=== PATIENT | female | born 1960 | race Caucasian/White ===

== ENCOUNTER 2023-11-30 11:12 | Outpatient (REF) | payer SELFPAY ==
[2023-11-30 13:49] LABS: Estimated Average Glucose 232 mg/dL; Hemoglobin A1c % 9.7 % (<6.0); Total Hemoglobin (HGBA1C) 4426.4618 umol/L
[2023-11-30 14:09] LABS: TSH reflex Free T4 6.35 uIU/mL (0.32-4.0)
[2023-11-30 15:15] LABS: Free T4 (Free Thyroxine) 0.77 ng/dL (0.71-1.85)
== END 2023-11-30 11:13 | disposition home or self-care (01) ==
LOC: HO.HHCL 11:12
PROVIDERS: Visit Provider Family Medicine
DX: E11.65 Type 2 diabetes mellitus with hyperglycemia (principal); E03.9 Hypothyroidism, unspecified
CPT/HCPCS: 36415; 83036; 84439; 84443

== ENCOUNTER 2024-04-21 09:06 | Outpatient (REF) | payer MEDICAID, SELFPAY ==
--- OUTSIDE RECORDS SUMMARY | 2024-04-21 09:47 | XMS_ITS | Encounter Summary ---
Author Organization [employer] Address [address] [place] [address] [place] [address] Care Team Providers Care Vp Scientific Affairs Name Role Phone Carina Nolasco MD Primary Care Provider + Reason for Visit * Reason Comments Med Refill Encounter Details Date Type Department Care Team (Late st Contact Info) Description 09/17/2023 Refill [facility] OB-Digital Marketing Analyst [address] [place] [phone] Aline Dash MD Social History Tobacco Use Types Packs/Day Years Used Date Smoking Tobacco: Never Assessed Comments Unknown Sex and Gender Information Value Date Recorded Sex Assigned at Female 08/09/2023 8:02 AM EDT Legal Sex Female 6:55 PM EDT Gender Identity Female 05/21/2023 6:55 PM EDT Sexual Orientation Straight 05/21/2023 6: 55 PM EDT documented as of this encounter Miscellaneous Notes * Telephone Encounter - Juancarlos Darby - 09/17/2023 12:18 AM EDT Approving, but needs appt for additional refills. documented in this encounter Plan of Treatment Upcoming Encounters Date Type Department Care Team (Late st Contact Info) Description 07/07/2024 11:15 AM EDT Office Visit [facility] MEDICINE [address] [place] [address] Carina Nolasco MD [address] [place], [place] [phone] documented as of this encounter Visit Diagnoses Not on filedocumented in this encounter Care Teams Vp Scientific Affairs Relationship Specialty Start Date End Date Carina Nolasco MD [address] [place] [phone] PCP - General Internal Medicine 04/18/24 documented as of this encounter
--- OUTSIDE RECORDS SUMMARY | 2024-04-21 09:47 | XMS_ITS | Encounter Summary ---
Author Organization [employer] Address [address] [place] [address] Care Team Providers Care Nuclear Radiologist Name Role Phone Carina Nolasco MD Primary Care Provider + Reason for Visit * Reason Comments Med Refill Encounter Details Date Type Department Care Team (Late st Contact Info) Description 09/17/[address] [phone] Myah Bermudez PA-C [address] [place] [phone] Social History Tobacco Use Types Packs/Day Years [...] Telephone Encounter - Juancarlos Darby - 09/17/2023 12:19 AM EDT Approving, but needs appt for additional refills. documented in this encounter Plan of Treatment Upcoming Encounters Date Type Department Care Team (Late st Contact Info) Description 07/07/2024 11:15 AM EDT Office Visit [facility] MEDICINE [address] [place], [place] [phone] Carina Nolasco MD [address] [place] [address] documented as of this encounter Visit Diagnoses Not on filedocumented in this encounter Care Teams Nuclear Radiologist Relationship Specialty Start Date End Date Carina Nolasco MD [address] [place] [address] PCP - General Internal Medicine 04/18/24 documented as of this encounter
--- OUTSIDE RECORDS SUMMARY | 2024-04-21 09:47 | XMS_ITS | Encounter Summary ---
Author Organization [employer] Address [address] [place] [address] [place] [address] Care Team Providers Care Beauty Specialist Name Role Phone Carina Nolasco MD Primary Care Provider + Reason for Visit * Reason Comments Med Refill Encounter Details Date Type Department Care Team (Late st Contact Info) Description 08/18/[address] [facility] OB-Farmworker Dairy [address] [place] [phone] Tanvi Grant FNP [address] [place] [phone] Social History Tobacco Use Types Packs/Day Years Used Date Smoking Tobacco: Never Assessed Comments Unknown Sex and Gender Information Value Date Recorded Sex Assigned at Female 08/09/2023 8:02 AM EDT Legal Sex Female 6:55 PM EDT Gender Identity Female 05/21/2023 6:55 PM EDT Sexual Orientation Straight 05/21/2023 6: 55 PM EDT documented as of this encounter Miscellaneous Notes * Telephone Encounter - Pamela Glass NP - 08/19/2023 9:49 AM EDT Approving, but needs appt for additional refills. documented in this encounter Plan of Treatment Upcoming Encounters Date Type Department Care Team (Late st Contact Info) Description 07/07/2024 11:15 AM EDT Office Visit [facility] MEDICINE [address] [place], [place] [phone] Carina Nolasco MD [address] [place] [address] documented as of this encounter Visit Diagnoses Not on filedocumented in this encounter Care Teams Beauty Specialist Relationship Specialty Start Date End Date Carina Nolasco MD [address] [place] [address] PCP - General Internal Medicine 04/18/24 documented as of this encounter
--- OUTSIDE RECORDS SUMMARY | 2024-04-21 09:47 | XMS_ITS | Encounter Summary ---
Author Organization [employer] Address [address] [place] [address] [place] [address] Care Team Providers Care Barrel Washer Machine Name Role Phone Carina Nolasco MD Primary Care Provider + Reason for Visit * Reason Comments Med Refill Encounter Details Date Type Department Care Team (Late st Contact Info) Description 10/28/[address] [phone] Yessenia Dumont MD [address] [place] [phone] Social History Tobacco Use Types Packs/Day Years [...] * Telephone Encounter - Juancarlos Darby - 10/28/2023 11:50 PM EDT Approving, but needs appt for additional refills. documented in this encounter Plan of Treatment Upcoming Encounters Date Type Department Care Team (Late st Contact Info) Description 07/07/2024 11:15 AM EDT Office Visit [facility] MEDICINE [address] [place] [address] Carina Nolasco MD [address] [place] [address] documented as of this encounter Visit Diagnoses Not on filedocumented in this encounter Care Teams Barrel Washer Machine Relationship Specialty Start Date End Date Carina Nolasco MD [address] [place] [phone] PCP - General Internal Medicine 04/18/24 documented as of this encounter
--- OUTSIDE RECORDS SUMMARY | 2024-04-21 09:47 | XMS_ITS | Encounter Summary ---
Author Organization [employer] Address [address] [place] [address] 7t [place] [address] Care Team Providers Care Dumb Waiter Operator Name Role Phone Carina Nolasco MD Primary Care Provider + Encounter Details Date Type Department Care Team (Latest Contact Info) Description 04/18/2024 Travel Social History Tobacco Use Types Packs/Day Years Used Date Smoking Tobacco: Never Smokeless Tobacco: Never Comments Unknown Sex and Gender Information Value Date Recorded Sex Assigned at Female 08/09/2023 8:02 AM EDT Legal Sex Female 6:55 PM EDT Gender Identity Female 05/21/2023 6:55 PM EDT Sexual Orientation Straight 05/21/2023 6: 55 PM EDT documented as of this encounter Plan of Treatment Upcoming Encounters Date Type Department Care Team (Late st Contact Info) Description 07/07/2024 11:15 AM EDT Office Visit [facility] MEDICINE [address] [place] [address] Carina Nolasco MD [address] [place] [address] documented as of this encounter Visit Diagnoses Not on filedocumented in this encounter Care Teams Dumb Waiter Operator Relationship Specialty Start Date End Date Carina Nolasco MD [address] [place], [place] [phone] PCP - General Internal Medicine 04/18/24 documented as of this encounter
--- OUTSIDE RECORDS SUMMARY | 2024-04-21 09:47 | XMS_ITS | Encounter Summary ---
Author Organization [employer] Address [address] [place] [address] 7 [place] [address] Care Team Providers Care Branch Associate Name Role Phone Carina Nolasco MD Primary Care Provider + Reason for Visit * Reason Comments Med Refill Encounter Details Date Type Department Care Team (Late st Contact Info) Description 09/04/2023 Refill [facility] OB-Sales Representative Consultant [address] [place] [phone] Aline Dash MD Type 2 diabetes mellitus without complications (CMS/HCC) Social History Tobacco Use Types Packs/Day Years [...] * Telephone Encounter - Juancarlos Darby - 09/05/2023 11:24 PM EDT Approving, but needs appt for additional refills. documented in this encounter Plan of Treatment Upcoming Encounters Date Type Department Care Team (Late st Contact Info) Description 07/07/2024 11:15 AM EDT Office Visit [facility] MEDICINE [address] [place] [address] Carina Nolasco MD [address] [place], [place] [phone] documented as of this encounter Visit Diagnoses Diagnosis Type 2 diabetes mellitus without complications (CMS/HCC) documented in this encounter Care Teams Branch Associate Relationship Specialty Start Date End Date Carina Nolasco MD [address] [place] [phone] PCP - General Internal Medicine 04/18/24 documented as of this encounter
--- OUTSIDE RECORDS SUMMARY | 2024-04-21 09:47 | XMS_ITS | Encounter Summary ---
Author Organization [employer] Address [address] [place] [address] 7 [place] [address] Care Team Providers Care Deposit Clerk Name Role Phone Carina Nolasco MD Primary Care Provider + Reason for Visit * Reason Comments Med Refill Encounter Details Date Type Department Care Team (Late st Contact Info) Description 07/19/2023 Refill [facility] OB-Lap Regulator [address] [place] [phone] Aline Dash MD Social History [...] * Telephone Encounter - Juancarlos Darby - 07/20/2023 10:46 PM EDT Approving, but needs appt for additional refills. documented in this encounter Plan of Treatment Upcoming Encounters Date Type Department Care Team (Late st Contact Info) Description 07/07/2024 11:15 AM EDT Office Visit [facility] MEDICINE [address] [place], [place] [phone] Carina Nolasco MD [address] [place], [place] [phone] documented as of this encounter Visit Diagnoses Not on filedocumented in this encounter Care Teams Deposit Clerk Relationship Specialty Start Date End Date Carina Nolasco MD [address] [place] [phone] PCP - General Internal Medicine 04/18/24 documented as of this encounter
--- OUTSIDE RECORDS SUMMARY | 2024-04-21 09:47 | XMS_ITS | Encounter Summary ---
Author Organization [facility] Address [address] [place] [address] 7 [place] [address] Care Team Providers Care Licensed Practical Nurse Instructor Name Role Phone Carina Nolasco MD Primary Care Provider + Reason for Visit * Reason Comments Med Refill Encounter Details Date Type Department Care Team (Late st Contact Info) Description 03/28/2024 Refill [facility] MEDICINE [address] [place] [phone] Becky Porter MD [address] [place] [phone] Vitamin D deficiency Social History Tobacco Use Types Packs/Day Years [...] Description 07/07/2024 11:15 AM EDT Office Visit [facility] MEDICINE [address] [place] [phone] Carina Nolasco MD [address] [place] [address] [phone] documented as of this encounter Visit Diagnoses Diagnosis Vitamin D deficiency documented in this encounter Care Teams Licensed Practical Nurse Instructor Relationship Specialty Start Date End Date Carina Nolasco MD [address] [place] [phone] PCP - General Internal Medicine 04/18/24 documented as of this encounter
--- OUTSIDE RECORDS SUMMARY | 2024-04-21 09:47 | XMS_ITS | Encounter Summary ---
Author Organization [employer] [facility] Address [address] [place] [address] 7t [place] [address] Care Team Providers Care Commercial Real Estate Underwriter Name Role Phone Carina Nolasco MD Primary Care Provider + Reason for Visit * Reason Comments Med Refill Encounter Details Date Type Department Care Team (Late st Contact Info) Description 03/26/2024 Refill [facility] MEDICINE [address] [place] [phone] Becky Porter MD [address] [place] [phone] Essential hypertension Social History Tobacco Use Types Packs/Day Years [...] 07/07/2024 11:15 AM EDT Office Visit [facility] MEDICINE [address] [place] [phone] Carina Nolasco MD [address] [place] [address] [phone] documented as of this encounter Visit Diagnoses Diagnosis Essential hypertension Unspecified essential hypertension documented in this encounter Care Teams Commercial Real Estate Underwriter Relationship Specialty Start Date End Date Carina Nolasco MD [address] [place] [phone] PCP - General Internal Medicine 04/18/24 documented as of this encounter
--- OUTSIDE RECORDS SUMMARY | 2024-04-21 09:47 | XMS_ITS | Encounter Summary ---
Author Organization [employer] Address [address] [place] [address] 7t [place] [address] Care Team Providers Care Range Mounter Name Role Phone Carina Nolasco MD Primary Care Provider + Reason for Referral * Imaging (Routine) - Authorized Specialty Diagnoses / Procedures Referred By Ninoska t Referred To Contact Radiology Diagnoses Essential hypertension Hypertensive urgency Procedures US RENAL DOPPLER Carina Nolasco MD [address] [place] [address] Phone: tel: fax: [address] Phone: tel: fax: Referral ID Status Reason Start Date Expiration Date V isits Requested Visits Authorized [id number] Authorized 04/18/2024 04/18/2025 1 1 * Imaging (Routine) - Authorized Specialty Diagnoses / Procedures Referred By Contkalia t Referred To Contact Radiology Diagnoses Essential hypertension Hypertensive urgency Procedures US RENAL BI Carina Nolasco MD [address] [place] [address] Phone: tel: fax: [address] Phone: tel: fax: Referral ID Status Reason Start Date Expiration Date V isits Requested Visits Authorized [id number] Authorized 04/18/2024 04/18/2025 1 1 Reason for Visit * Reason Comments New patient apointment Encounter Details Date Type Department Care Team (Latest Contact Info) Description 04/18/2024 9:15 AM EDT Office Visit [facility] [address] [place] [address] Carina Nolasco MD [address] [place], [place] [phone] Essential hypertension (Primary Dx); Type 2 diabetes mellitus with hyperglycemia, without long-term current use of insulin ([facility]); Acquired hypothyroidism; Vitamin D deficiency; Sciatica, unspecified laterality; Hyperlipidemia, unspecified hyperlipidemia type; Hypertensive urgency Social History Tobacco Use Types Packs/Day Years Used Date Smoking Tobacco: Never Smokeless Tobacco: Never Tobacco Cessation:Counseling Given: Not Answered Comments Unknown Sex and Gender Information Value Date Recorded Sex Assigned at Female 08/09/2023 8:02 AM EDT Legal Sex Female 6:55 PM EDT Gender Identity Female 05/21/2023 6:55 PM EDT Sexual Orientation Straight 05/21/2023 6: 55 PM EDT documented as of this encounter Last Filed Vital Signs Vital Sign Reading Time Taken Comments Blood Pressure 215/105 04/18/2024 9:45 AM EDT Pulse 92 04/18/2024 9:25 AM EDT Temperature 36.8 ??C (98.2 ??F) 04/18/2024 9:25 AM ED T Respiratory Rate 16 04/18/2024 9:25 AM EDT Oxygen Saturation - - Inhaled Oxygen Concentration - - Weight 70.5 kg (155 lb 8 oz) 04/18/2024 9:25 AM EDT Height 148.6 cm (4' 10.5 ) 04/18/2024 9:25 AM ED T Body Mass Index 31.95 04/18/2024 9:25 AM EDT documented in this encounter Progress Notes * Carina Nolasco MD - 04/18/2024 9:15 AM EDT SUBJECTIVE: Kathryn Pradhan is a 63 y.o. year old female who presents for new patient visit . Denies recent illness, injury, or hospitalization. Patient here to establish care as a new pt. She has multiple medical problems including HTN, DM, HLD, chronic back pain, and vitamin D deficiency. She comes in with her daughter. Last TSH on 11/30/23 was 6.35. She is on levothyroxine 200 mcg. Her last A1c was high as she was off medications and she was restarted on Metformin and Jardiance. She reports her BS at home to be within 300s and 400s, but she is out of medications for approximately a month. She is not checking BP at home but denies any PANDYA, chest pain, headaches, or dizziness. She continues with sciatica and reportedly takes Gabapentin to help with the pain, but does not have Tylenol at home. She reports not being able to get a refill on most of her medications, as the pharmacy apparently told them they need a doctor to prescribe it again, but they did not have a doctor at the time. Afterchecking with the pharmacy, it looks like her last refill was December 2023. She reports her pharmacy to be the [facility] currently. She lives on the fourth floor in an apartment by herself. She has 5 children, with one in [place] and one in [place]. She does not currently work. Last Pap was apparently around a year ago and reportedly showed no abnormalities. Acute Concerns: Social History Social History Narrative Not on file Patient Active Problem List Diagnosis Essential hypertension Type 2 diabetes mellitus, without long-term current use of insulin ([facility]) Pinguecula of both eyes Major depression, chronic Hypothyroidism Hyperlipidemia Health care maintenance Grade I diastolic dysfunction Fatty liver Abnormal mammogram Vitamin D deficiency Hypertensive urgency Sciatica No family history on file. Review of Systems Constitutional: Negative for chills, fatigue and fever. HENT: Negative for congestion, ear pain, nosebleeds, rhinorrhea, sinus pressure, sore throat and trouble swallowing. Eyes: Negative for pain and discharge. Respiratory: Negative for cough, chest tightness and shortness of breath. Cardiovascular: Negative for chest pain, palpitations and leg swelling. Gastrointestinal: Negative for abdominal pain, blood in stool, constipation, diarrhea and nausea. Endocrine: Negative for polydipsia and polyuria. Genitourinary: Negative for dysuria, frequency, genital sores, pelvic pain and vaginal discharge. Musculoskeletal: Positive for back pain. Negative for neck pain. Skin: Negative for rash. Allergic/Immunologic: Negative for environmental allergies. Neurological: Negative for dizziness, seizures, weakness, light-headedness and headaches. Hematological: Negative for adenopathy. Psychiatric/Behavioral: Negative for agitation, behavioral problems, self-injury and suicidal ideas. OBJECTIVE: Vitals: 04/18/24 0925 04/18/24 0945 BP: (!) 232/96 (!) 215/105 BP Location: Right arm Right arm Patient Position: Sitting Sitting BP Cuff Size: Adult Adult Pulse: 92 Resp: 16 Temp: 98.2 ??F (36.8 ??C) TempSrc: Oral Weight: 155 lb 8 oz (70.5 kg) Height: 4' 10.5 (1.486 m) Physical Exam Constitutional: Appearance: Normal appearance. HENT: Right Ear: Tympanic membrane and ear canal normal. Left Ear: Tympanic membrane and ear canal normal. Mouth/Throat: Mouth: Mucous membranes are moist. Pharynx: No oropharyngeal exudate or posterior oropharyngeal erythema. Eyes: Pupils: Pupils are equal, round, and reactive to light. Cardiovascular: Rate and Rhythm: Normal rate and regular rhythm. Heart sounds: No murmur heard. Pulmonary: Breath sounds: Normal breath sounds. No wheezing. Abdominal: General: Bowel sounds are normal. Palpations: Abdomen is soft. Tenderness: There is no abdominal tenderness. Musculoskeletal: General: Normal range of motion. Cervical back: Normal range of motion. No tenderness. Lumbar back: Spasms and tenderness present. Skin: General: Skin is warm. Neurological: General: No focal deficit present. Mental Status: She is alert and oriented to person, place, and time. Psychiatric: Mood and Affect: Mood normal. Encounter Date: 04/18/24 ECG 12 lead Narrative NSR @ 98 bpm, normal axis, no ST/T abn or any ischemic changes. Office Visit on 04/18/2024 Component Date Value Ref Range Status Glucose Blood, POC 04/18/2024 206 (A) 60 - 200 mg/dL Final QC Media Lot # 04/18/2024 [id number] Final Lot# Expiration Date 04/18/2024 82,625 Final Hemoglobin A1C 04/18/2024 10.0 (A) 4.0 - 6.0 % Final QC Media Lot # 04/18/2024 [id number] Final Lot# Expiration Date 04/18/2024 186,922 Final Problem List Items Addressed This Visit Type 2 diabetes mellitus, without long-term current use of insulin ([facility]) Uncontrolled, she is out of medications for approximately a month. Restart Metformin and Jardiance and fu in 4-5 weeks. Relevant Medications metFORMIN XR (Glucophage-XR) 500 MG 24 hr tablet empagliflozin (Jardiance) 25 MG Other Relevant Orders POCT Glucose (Completed) POCT HGB A1C (Completed) Comprehensive Metabolic Panel Essential hypertension - Primary Uncontrolled today, hypertensive urgency. EKG within normal limits, most likely related to pt being out of medications and using vasoconstrictor drops. Restart Amlodipine, Lisinopril, and continue Spironolactone and Metoprolol. Fu in 3-4 weeks with labs. I will order renal US. Relevant Medications metoprolol succinate XL (Toprol-XL) 50 MG 24 hr tablet lisinopril 30 MG tablet spironolactone (Aldactone) 50 MG tablet Other Relevant Orders US RENAL BI US RENAL DOPPLER Hypothyroidism She is out of medications, check baseline TSH and restart Levothyroxine 200 mcg. Recheck TSH in 6 weeks if needed. Relevant Medications levothyroxine (Synthroid, Levoxyl) 200 MCG tablet Other Relevant Orders TSH with Reflex to Free T4 Vitamin D deficiency Check vitamin D and complete vitamin D prescription. Relevant Orders Vitamin D, 25-Hydroxy, Total, Immunoassay Sciatica Advised to take Tylenol with Gabapentin. Fu in 6 weeks and consider pain clinic referral. I gave her information about acupuncture clinic, she declined PT referral at this time. Relevant Medications gabapentin (Neurontin) 300 MG capsule Other Relevant Orders CBC auto differential Hyperlipidemia Continue Atorvastatin. Relevant Medications atorvastatin (Lipitor) 40 MG tablet Hypertensive urgency See above HTN. Relevant Orders US RENAL BI US RENAL DOPPLER Follow Up: Current Outpatient Medications on File Prior to Visit Medication Sig Dispense Refill amLODIPine (Norvasc) 10 MG tablet Take 1 tablet (10 mg) by mouth Once per day. 90 tablet 1 cholecalciferol VITAMIN D (Vitamin D-3) 25 MCG (1000 UT) capsule Take 1 capsule (25 mcg) by mouth Once per day. 90 capsule 1 ferrous gluconate (Fergon) 324 (38 Fe) MG tablet TAKE 1 TABLET BY MOUTH EVERY DAY 90 tablet 0 FreeStyle lancets 1 each by Other route 2 times daily. 100 each 1 FREESTYLE LITE test strip 1 each by Other route 2 times daily. 100 each 2 [DISCONTINUED] atorvastatin (Lipitor) 40 MG tablet Take 1 tablet (40 mg) by mouth Once per day. 90 tablet 1 [DISCONTINUED] empagliflozin (Jardiance) 25 MG Take 1 tablet (25 mg) by mouth in the morning. 90 tablet 1 [DISCONTINUED] gabapentin (Neurontin) 300 MG capsule Take 1 capsule (300 mg) by mouth 2 times daily. 180 capsule 1 [DISCONTINUED] levothyroxine (Synthroid, Levoxyl) 200 MCG tablet Take 1 tablet (200 mcg) by mouth Once per day. 90 tablet 0 [DISCONTINUED] lisinopril 30 MG tablet Take 1 tablet (30 mg) by mouth Once per day. 90 tablet 0 [DISCONTINUED] metFORMIN XR (Glucophage-XR) 500 MG 24 hr tablet Take 2 tablets (1,000 mg) by mouth 2 times daily. 360 tablet 0 [DISCONTINUED] metoprolol succinate XL (Toprol-XL) 50 MG 24 hr tablet Take 1 tablet (50 mg) by mouth Once per day. 90 tablet 1 [DISCONTINUED] spironolactone (Aldactone) 50 MG tablet Take 1 tablet (50 mg) by mouth Once per day.90 tablet 1 No current facility-administered medications on file prior to visit. I, Tess Pearson, am serving as a scribe to document services personally performed by Dr. Carina Nolasco, based on the patient's response to questions by provider and provider's statements to me. documented in this encounter Miscellaneous Notes * Assessment & Plan Note - Tess Pearson - 04/18/2024 1:31 PM EDTAssociated Problem(s): Sciatica Advised to take Tylenol with Gabapentin. Fu in 6 weeks and consider pain clinic referral. I gave her information about acupuncture clinic, she declined PT referral at this time. * Assessment & Plan Note - Tess Pearson - 04/18/2024 1:29 PM EDTAssociated Problem(s): Hyperlipidemia Continue Atorvastatin. * Assessment & Plan Note - Tess Pearson - 04/18/2024 1:28 PM EDTAssociated Problem(s): Vitamin D deficiency Check vitamin D and complete vitamin D prescription. * Assessment & Plan Note - Tess Pearson - 04/18/2024 1:28 PM EDTAssociated Problem(s): Hypothyroidism She is out of medications, check baseline TSH and restart Levothyroxine 200 mcg. Recheck TSH in 6 weeks if needed. * Assessment & Plan Note - Tess Pearson - 04/18/2024 1:23 PM EDTAssociated Problem(s): Essential hypertension Uncontrolled today, hypertensive urgency. EKG within normal limits, most likely related to pt being out of medications and using vasoconstrictor drops. Restart Amlodipine, Lisinopril, and continue Spironolactone and Metoprolol. Fu in 3-4 weeks with labs. I will order renal US. * Assessment & Plan Note - Tess Pearson - 04/18/2024 1:22 PM EDTAssociated Problem(s): Type 2 diabetes mellitus, without long-term current use of insulin ([facility]) Uncontrolled, she is out of medications for approximately a month. Restart Metformin and Jardiance and fu in 4-5 weeks. * Assessment & Plan Note - Tess Pearson - 04/18/2024 1:21 PM EDTAssociated Problem(s): Hypertensive urgency See above HTN. documented in this encounter Plan of Treatment Upcoming Encounters Date Type Department Care Team (Late st Contact Info) Description 07/07/2024 11:15 AM EDT Office Visit [facility] [address] [place] [address] Carina Nolasco MD [address] [place], [place] [phone] Scheduled Orders Name Type Priority Associated Diagnoses Orde r Schedule Comprehensive Metabolic Panel Lab Routine Type 2 diabetes mellitus with hyperglycemia, without long-term current use of insulin (CMS/HCC) Expected: 04/18/2024 (Approximate), Expires: 04/18/2025 TSH with Reflex to Free T4 Lab Routine Acquired hypothyroidism Expected: 04/18/2024 (Approximate), Expires: 04/18/2025 Vitamin D, 25-Hydroxy, Total, Immunoassay Lab Routine Vitamin D deficiency Expected: 04/18/2024 (Approximate), Expires: 04/18/2025 CBC auto differential Lab Routine Sciatica, unspecified laterality Expected: 04/18/2024 (Approximate), Expires: 04/18/2025 US RENAL BI Imaging Routine Essential hypertension Hypertensive urgency Expected: 04/18/2024 (Approximate), Expires: 04/18/2025 US RENAL DOPPLER Imaging Routine Essential hypertension Hypertensive urgency Expected: 04/18/2024 (Approximate), Expires: 04/18/2025 documented as of this encounter Procedures Procedure Name Priority Date/Time Associated Diagnosis Comments ECG 12-LEAD Routine 04/18/2024 2:49 PM EDT Essential hypertension Hypertensive urgency POCT GLYCATED HEMOGLOBIN, TOTAL Routine 04/18/2024 9:36 AM EDT Type 2 diabetes mellitus with hyperglycemia, without long-term current use of insulin (CMS/HCC) POCT GLUCOSE Routine 04/18/2024 9:26 AM EDT Type 2 diabetes mellitus with hyperglycemia, without long-term current use of insulin (CMS/HCC) documented in this encounter Results * ECG 12 lead (04/18/2024 2:49 PM EDT) Narrative Carina Nolasco MD - 04/18/2024 2:49 PM EDT NSR @ 98 bpm, normal axis, no ST/T abn or any ischemic changes. Carina Nolasco MD ECG ORDERABLES Final Re sult * (ABNORMAL) POCT HGB A1C (04/18/2024 9:36 AM EDT) Hemoglobin A1C 10.0(A) 4.0 - 6.0 % QC Media Lot # [id number] Lot# Expiration Date 111,926 Blood 04/18/2024 9:36 AM EDT Carina Nolasco MD POINT OF CARE TEST ENTER /EDIT ORDERABLES Final Result * (ABNORMAL) POCT Glucose (04/18/2024 9:26 AM EDT) Glucose Blood, POC 206(A) 60 - 200 mg/dL QC Media Lot # [id number] Lot# Expiration Date 82,625 Blood Capillary blood specimen / Unknown 04/18/2024 9:26 AM EDT Carina Nolasco MD POINT OF CARE TEST ENTER /EDIT ORDERABLES Final Result documented in this encounter Visit Diagnoses Diagnosis Essential hypertension- Primary Unspecified essential hypertension Type 2 diabetes mellitus with hyperglycemia, without long-term current use of insulin ([facility]) Acquired hypothyroidism Unspecified hypothyroidism Vitamin D deficiency Sciatica, unspecified laterality Hyperlipidemia, unspecified hyperlipidemia type Hypertensive urgency documented in this encounter Care Teams Range Mounter Relationship Specialty Start Date End Date Carina Nolasco MD [address] [place] [phone] PCP - General Internal Medicine 04/18/24 documented as of this encounter
--- OUTSIDE RECORDS SUMMARY | 2024-04-21 09:47 | XMS_ITS | Encounter Summary ---
Author Organization [employer] [facility] Address [address] [place] [address] 7 [place] [address] Care Team Providers Care Claim Approver Name Role Phone Carina Nolasco MD Primary Care Provider + Reason for Visit * Reason Comments Med Change Request Encounter Details Date Type Department Care Team (Late st Contact Info) Description 04/18/2024 Refill [facility] [address] [place] [phone] Carina Nolasco MD [address] [place] [phone] Social History Tobacco Use Types Packs/Day Years [...] Description 07/07/2024 11:15 AM EDT Office Visit [facility] [address] [place] [phone] Carina Nolasco MD [address] [place] [phone] documented as of this encounter Visit Diagnoses Not on filedocumented in this encounter Care Teams Claim Approver Relationship Specialty Start Date End Date Carina Nolasco MD [address] [place] [address] [phone] PCP - General Internal Medicine 04/18/24 documented as of this encounter
--- OUTSIDE RECORDS SUMMARY | 2024-04-21 09:47 | XMS_ITS | Encounter Summary ---
Author Organization [employer] Address [address] [place] [address] 7 [place] [address] Care Team Providers Care Supervisor Brine Name Role Phone Carina Nolasco MD Primary Care Provider + Reason for Visit * Reason Onset Date Comments Durable Medical Equipment 04/20/2024 Encounter Details Date Type Department Care Team (Late st Contact Info) Description 04/20/2024 Telephone [facility] [address] [place], [place] [phone] Carina Nolasco MD [address] [place], [place] [phone] Durable Medical Equipment Social History Tobacco Use Types Packs/Day Years [...] encounter Miscellaneous Notes * Telephone Encounter - Tricia Jennings MA - 04/20/2024 2:58 PM EDT Script for cane generated. Will place on provider's desk for signature. * Telephone Encounter - Tricia Jennings MA - 04/20/2024 2:52 PM EDT ----- Message from Carina Nolasco MD sent at 04/18/2024 1:18 PM EDT ----- Please write a rx for a cane documented in this encounter Plan of Treatment Upcoming Encounters Date Type Department Care Team (Late st Contact Info) Description 07/07/2024 11:15 AM EDT Office Visit [facility] [address] [place] [address] Carina Nolasco MD [address] [place] [phone] documented as of this encounter Visit Diagnoses Not on filedocumented in this encounter Care Teams Supervisor Brine Relationship Specialty Start Date End Date Carina Nolasco MD [address] [place] [phone] PCP - General Internal Medicine 04/18/24 documented as of this encounter
--- OUTSIDE RECORDS SUMMARY | 2024-04-21 09:47 | XMS_ITS | Encounter Summary ---
Author Organization [email or web address] Address [address] [facility] 7t [place] [address] Care Team Providers Care Diesel Engine Mechanic Name Role Phone Unavailable Primary Care Provider Unavailabl e Encounter Details Date Type Department Care Team (Late st Contact Info) Description 04/11/2024 Patient Outreach [facility] [address] [place] [address] [phone] Carina Nolasco MD [address] [place] [address] [phone] Social History Tobacco Use Types Packs/Day Years Used Date Smoking Tobacco: Never Smokeless Tobacco: Never Comments Unknown Sex and Gender Information Value Date Recorded Sex Assigned at Female 08/09/2023 8:02 AM EDT Legal Sex Female 6:55 PM EDT Gender Identity Female 05/21/2023 6:55 PM EDT Sexual Orientation Straight 05/21/2023 6: 55 PM EDT documented as of this encounter Progress Notes * Manasa Batista - 04/11/2024 10:44 AM EST SANTOS Goel. Placed outbound call to patient to complete pre-visit planning. No answer at this time. Patient name and were not confirmed. CC left voicemail requesting return call. Direct contact information provided. documented in this encounter Plan of Treatment Upcoming Encounters Date Type Department Care Team (Late st Contact Info) Description 07/07/2024 11:15 AM EDT Office Visit [facility] [address] [place] [address] [phone] Carina Nolasco MD [address] [place] [address] documented as of this encounter Visit Diagnoses Not on filedocumented in this encounter
--- OUTSIDE RECORDS SUMMARY | 2024-04-21 09:47 | XMS_ITS | Encounter Summary ---
Author Organization [employer] Address [address] [place] [address] [place] [address] Care Team Providers Care Midwife Practitioner Name Role Phone Carina Nolasco MD Primary Care Provider + Reason for Visit * Reason Comments Med Refill Encounter Details Date Type Department Care Team (Late st Contact Info) Description 08/29/2023 Refill [facility] [address] [place] [phone] Tanvi Grant FNP [address] [place] [phone] Social History Tobacco Use Types Packs/Day Years [...] * Telephone Encounter - Juancarlos Darby - 08/31/2023 12:21 AM EDT Approving, but needs appt for additional refills. documented in this encounter Plan of Treatment Upcoming Encounters Date Type Department Care Team (Late st Contact Info) Description 07/07/2024 11:15 AM EDT Office Visit [facility] [address] [place], [place] [phone] Carina Nolasco MD [address] [place] [phone] documented as of this encounter Visit Diagnoses Not on filedocumented in this encounter Care Teams Midwife Practitioner Relationship Specialty Start Date End Date Carina Nolasco MD [address] [place] [phone] PCP - General Internal Medicine 04/18/24 documented as of this encounter
--- OUTSIDE RECORDS SUMMARY | 2024-04-21 09:47 | XMS_ITS | Encounter Summary ---
Author Organization [employer] [facility] Address [address] [place] [address] 7t [place] [address] Care Team Providers Care Layout Artist Name Role Phone Carina Nolasco MD Primary Care Provider + Reason for Visit * Reason Comments Med Refill Encounter Details Date Type Department Care Team (Late st Contact Info) Description 04/08/2024 Refill [facility] [address] [place] [phone] Becky Porter MD [address] [place] [address] [phone] Hyperlipidemia, unspecified hyperlipidemia type; Essential hypertension Social History Tobacco Use Types [...] 11:15 AM EDT Office Visit [facility] [address] [place] [phone] Carina Nolasco MD [address] [place] [address] [phone] documented as of this encounter Visit Diagnoses Diagnosis Hyperlipidemia, unspecified hyperlipidemia type Essential hypertension Unspecified essential hypertension documented in this encounter Care Teams Layout Artist Relationship Specialty Start Date End Date Carina Nolasco MD [address] [place] [phone] PCP - General Internal Medicine 04/18/24 documented as of this encounter
--- OUTSIDE RECORDS SUMMARY | 2024-04-21 09:47 | XMS_ITS | Encounter Summary ---
Author Organization [employer] Address [address] [place] [address] Care Team Providers Care Summer Associate Name Role Phone Carina Nolasco MD Primary Care Provider + Reason for Visit * Reason Comments Med Refill Encounter Details Date Type Department Care Team (Late st Contact Info) Description 02/21/2024 Refill [facility] [address] [place] [address] Tanvi Grant FNP [address] [place] [phone] Acquired hypothyroidism Social History Tobacco Use Types Packs/Day Years [...] Description 07/07/2024 11:15 AM EDT Office Visit [facility] [address] [place] [phone] Carina Nolasco MD [address] [place] [address] [phone] documented as of this encounter Visit Diagnoses Diagnosis Acquired hypothyroidism Unspecified hypothyroidism documented in this encounter Care Teams Summer Associate Relationship Specialty Start Date End Date Carina Nolasco MD [address] [place] [phone] PCP - General Internal Medicine 04/18/24 documented as of this encounter
--- OUTSIDE RECORDS SUMMARY | 2024-04-21 09:48 | XMS_ITS | Clinical Summary ---
Author Organization [employer] Address [address] [place] [address] Care Team Providers Care Bookkeeping Service Sales Agent Name Role Phone Carina Nolasco MD Primary Care Provider + Allergies No known active allergies Medications amLODIPine (Norvasc) 10 MG tabletIndications :Essential hypertension Take 1 tablet (10 mg) by mouth Once per day. 90 tablet 1 024 Active cholecalciferol VITAMIN D (Vitamin D-3) 25 MCG (1000 UT) capsuleIndication s:Vitamin D deficiency Take 1 capsule (25 mcg) by mouth Once per day. 90 capsule 1 024 Active FreeStyle lancetsIndication s:Type 2 diabetes mellitus with hyperglycemia, without long-term current use of insulin ([facility]) 1 each by Other route 2 times daily. 100 each 1 024 Active ferrous gluconate (Fergon) 324 (38 Fe) MG tablet TAKE 1 TABLET BY MOUTH EVERY DAY 90 tablet 024 Active FREESTYLE LITE test stripIndications: Type 2 diabetes mellitus with hyperglycemia, without long-term current use of insulin ([facility]) 1 each by Other route 2 times daily. 100 each 2 025 Active metFORMIN XR (Glucophage-XR) 500 MG 24 hr tabletIndications :Type 2 diabetes mellitus with hyperglycemia, without long-term current use of insulin ([facility]) Take 2 tablets (1,000 mg) by mouth 2 times daily. 360 tablet 3 025 Active gabapentin (Neurontin) 300 MG capsuleIndication s:Sciatica, unspecified laterality Take 1 capsule (300 mg) by mouth 2 times daily. 180 capsule 1 025 Active acetaminophen (Tylenol Extra Strength) 500 MG tablet Take 1 tablet (500 mg) by mouth every 6 (six) hours if needed for mild pain. 120 tablet 025 2024 Active levothyroxine (Synthroid, Levoxyl) 200 MCG tabletIndications :Acquired hypothyroidism Take 1 tablet (200 mcg) by mouth Once per day. 90 tablet 1 025 Active atorvastatin (Lipitor) 40 MG tabletIndications :Hyperlipidemia, unspecified hyperlipidemia type Take 1 tablet (40 mg) by mouth Once per day. 90 tablet 1 025 Active empagliflozin (Jardiance) 25 MGIndications:Typ e 2 diabetes mellitus with hyperglycemia, without long-term current use of insulin ([facility]) Take 1 tablet (25 mg) by mouth in the morning. 90 tablet 1 025 Active metoprolol succinate XL (Toprol-XL) 50 MG 24 hr tabletIndications :Essential hypertension Take 1 tablet (50 mg) by mouth Once per day. 90 tablet 1 025 Active lisinopril 30 MG tabletIndications :Essential hypertension Take 1 tablet (30 mg) by mouth Once per day. 90 tablet 1 025 Active spironolactone (Aldactone) 50 MG tabletIndications :Essential hypertension Take 1 tablet (50 mg) by mouth Once per day. 90 tablet 1 025 Active polyvinyl alcohol (Liquifilm Tears) 1.4 % ophthalmic solution INSTILL 2 DROPS INTO AFFECTED EYE(S) IF NEEDED IN THE MORNING AT NOON,AND AT BEDTIME FOR DRY EYE 15 mL 3 Active metFORMIN XR (Glucophage-XR) 500 MG 24 hr tabletIndications :Type 2 diabetes mellitus with hyperglycemia, without long-term current use of insulin ([facility]) Take 2 tablets (1,000 mg) by mouth 2 times daily. 360 tablet 024 2024 Discontinued(R eorder (will not trigger notification to Pharmacy)) atorvastatin (Lipitor) 40 MG tabletIndications :Hyperlipidemia, unspecified hyperlipidemia type Take 1 tablet (40 mg) by mouth Once per day. 90 tablet 1 024 2024 Discontinued(R eorder (will not trigger notification to Pharmacy)) empagliflozin (Jardiance) 25 MGIndications:Typ e 2 diabetes mellitus with hyperglycemia, without long-term current use of insulin ([facility]) Take 1 tablet (25 mg) by mouth in the morning. 90 tablet 1 024 2024 Discontinued(R eorder (will not trigger notification to Pharmacy)) levothyroxine (Synthroid, Levoxyl) 200 MCG tabletIndications :Acquired hypothyroidism Take 1 tablet (200 mcg) by mouth Once per day. 90 tablet 024 2024 Discontinued(R eorder (will not trigger notification to Pharmacy)) metoprolol succinate XL (Toprol-XL) 50 MG 24 hr tabletIndications :Essential hypertension Take 1 tablet (50 mg) by mouth Once per day. 90 tablet 1 024 2024 Discontinued(R eorder (will not trigger notification to Pharmacy)) lisinopril 30 MG tabletIndications :Essential hypertension Take 1 tablet (30 mg) by mouth Once per day. 90 tablet 024 2024 Discontinued(R eorder (will not trigger notification to Pharmacy)) gabapentin (Neurontin) 300 MG capsuleIndication s:Sciatica, unspecified laterality Take 1 capsule (300 mg) by mouth 2 times daily. 180 capsule 1 024 2024 Discontinued(R eorder (will not trigger notification to Pharmacy)) spironolactone (Aldactone) 50 MG tabletIndications :Essential hypertension Take 1 tablet (50 mg) by mouth Once per day. 90 tablet 1 024 2024 Discontinued(R eorder (will not trigger notification to Pharmacy)) Polyvinyl Alcohol-Povidone 5-6 MG/ML solution Administer 2 drops into affected eye(s) if needed in the morning, at noon, and at bedtime (dry eye). 15 mL 3 025 2024 Discontinued Active Problems Problem Noted Date Diagnosed Date Hypertensive urgency 04/18/2024 Assessment & Plan (04/18/2024 1:21 PM EDT): See above HTN. Sciatica 04/18/2024 Assessment & Plan (04/18/2024 1:31 PM EDT): Advised to take Tylenol with Gabapentin. Fu in 6 weeks and consider pain clinic referral. I gave her information about acupuncture clinic, she declined PT referral at this time. Essential hypertension 11/30/2023 Overview (11/30/2023): Pt presents as new pt. Epic chart reviewed from previous health care clinic. Last Addressed Date: 04/26/2023; Status: Chronic; Per their note, Long history of poor BP control likely related to confusion or nonadherence with medications. Now variably controlled on current regimen, Medication regimen: Lisinopril 30 mg daily Amlodipine 10 mg daily Spironolactone 50 mg daily Metoprolol 50 mg daily Because patient is off of her medications. Will restart the above and have her follow up kevyn Assessment & Plan (04/18/2024 1:23 PM EDT): Uncontrolled today, hypertensive urgency. EKG within normal limits, most likely related to pt being out of medications and using vasoconstrictor drops. Restart Amlodipine, Lisinopril, and continue Spironolactone and Metoprolol. Fu in 3-4 weeks with labs. I will order renal US. Assessment & Plan (11/30/2023 10:30 AM EDT): Chronic; Per their note, Long history of poor BP control likely related to confusion or nonadherence with medications. Now variably controlled on current regimen, Medication regimen: Lisinopril 30 mg daily Amlodipine 10 mg daily Spironolactone 50 mg daily Metoprolol 50 mg daily -referred to [facility] with our [facility] 11/30/23 Because patient is off of her medications. Will restart the above and have her follow up kevyn Type 2 diabetes mellitus, wi thout long-term current use of insulin 11/30/2023 Overview (11/30/2023): Last Addressed Date: 01/26/2023; Status: Chronic; Recent NextGen Note: Dx 2015. Had been diet controlled, on ACEi -> 2020: Started metformin, now 1000 mg bid -09/29 represcribe strips clarifying that testing is twice daily -Following with PCP and has seen chronic disease RN for supervision and teaching - 06/30 A1c 9.0, will increase metformin to 1000mg bid and jardiance to 25mg. add asa 81mg Optho - has been seen once but can't remember with whom. 2021 referred to [facility], never got appt 06/30 re-referred for ophtho Last Addressed Date: 01/26/2023; Status: Chronic; Recent NextGen Note: Dx 2015. Had been diet controlled, on ACEi -> 2020: Started metformin, now 1000 mg bid -09/29 represcribe strips clarifying that testing is twice daily -Following with PCP and has seen chronic disease RN for supervision and teaching - 06/30 A1c 9.0, will increase metformin to 1000mg bid and jardiance to 25mg. add asa 81mg Optho - has been seen once but can't remember with whom. 2021 -> referred to [facility], never got appt 06/30 re-referred for ophtho Assessment & Plan (04/18/2024 1:22 PM EDT): Uncontrolled, she is out of medications for approximately a month. Restart Metformin and Jardiance and fu in 4-5 weeks. Assessment & Plan (11/30/2023 10:28 AM EDT): -restarting metformin to 1000mg bid and jardiance to 25mg daily. 11/30/23 -checking A1C and encouraged to follow-up with PCP. Pinguecula of both eyes 11/30/2023 Overview (11/30/2023): Last Addressed Date: 06/22/2022; Status: Chronic; Recent NextGen Note: overdue for DM ophtho exam and also f/u of pteryguim. referring to ophtho Last Addressed Date: 06/22/2022; Status: Chronic; Recent NextGen Note: overdue for DM ophtho exam and also f/u of pteryguim. referring to ophtho Major depression, chronic 11/30/2023 Overview (11/30/2023): Last Addressed Date: 06/22/2019; Status: Chronic; Recent NextGen Note: Pt persistently denies mood sx, depression, or concerns about this. No thoughts of self harm. Per family she has poor memory and poor ability and motivation to care for self, needs cueing and support to perform self-care. Pt declines Rx or referral, declines therapy or other outside supports. Last Addressed Date: 06/22/2019; Status: Chronic; Recent NextGen Note: Pt persistently denies mood sx, depression, or concerns about this. No thoughts of self harm. Per family she has poor memory and poor ability and motivation to care for self, needs cueing and support to perform self-care. Pt declines Rx or referral, declines therapy or other outside supports. Hypothyroidism 11/30/2023 Overview (11/30/2023): Last Addressed Date: 06/22/2022; Status: Chronic; Recent NextGen Note: Current levothyroxine dose 150 mcg daily No longer symptomatic with palpitations which were related to previous overtreatment of thyroid disorder 06/30 due to check to ensure stable control Last Addressed Date: 06/22/2022; Status: Chronic; Recent NextGen Note: Current levothyroxine dose 150 mcg daily No longer symptomatic with palpitations which were related to previous overtreatment of thyroid disorder 06/30 due to check to ensure stable control Assessment & Plan (04/18/2024 1:28 PM EDT): She is out of medications, check baseline TSH and restart Levothyroxine 200 mcg. Recheck TSH in 6 weeks if needed. Assessment & Plan (11/30/2023 6:34 PM EDT): Lab Results Component Value Date TSH 7.260 (H) 04/26/2023 TSH 7.14 (A) 01/26/2023 -levothryoixine was increased after 04/26/23 to 200mg, will check TSH today Addendum: repeat TSH high, rx resent, advised to take daily before recheck Hyperlipidemia 11/30/2023 Overview (11/30/2023): Lab Results Component Value Date LDL 122 06/22/2022 -continue lifestyle modification -continue Atorvastatin 40 mg daily. Assessment & Plan (04/18/2024 1:29 PM EDT): Continue Atorvastatin. Assessment & Plan (11/30/2023 10:40 AM EDT): Lab Results Component Value Date LDL 122 06/22/2022 -continue lifestyle modification -continue Atorvastatin 40 mg daily. Health care maintenance 11/30/2023 Overview (11/30/2023): Last Addressed Date: 04/14/2021; Status: Chronic; Recent NextGen Note: breast CA screening - see separate prob list item, refer for mammo colon cancer screening - neg FIT 05/2018 -> update 04/29 pap neg/neg 03/28/15 -> due 2020 -> done 04/13/21 though unable to adequitely visualize cervix flu shot - declined 12/07/17, 12/06/18, 03/06/2019, 04/29 COVID vax - decliend 04/29 no dental care (has dentures upper and lower) Last Addressed Date: 04/14/2021; Status: Chronic; Recent NextGen Note: breast CA screening - see separate prob list item, refer for mammo colon cancer screening - neg FIT 05/2018 -> update 04/29 pap neg/neg 03/28/15 -> due 2020 -> done 04/13/21 though unable to adequitely visualize cervix flu shot - declined 12/07/17, 12/06/18, 03/06/201904/29 COVID vax - decliend 04/29 no dental care (has dentures upper and lower) Grade I diastolic dysfunction 11/30/2023 Overview (11/30/2023): Last Addressed Date: 06/27/2018; Status: Chronic; Recent NextGen Note: By ECHO 06/2018 Last Addressed Date: 06/27/2018; Status: Chronic; Recent NextGen Note: By ECHO 06/2018 Fatty liver 11/30/2023 Abnormal mammogram 11/30/2023 Overview (11/30/2023): Last Addressed Date: 04/14/2021; Status: Chronic; Recent NextGen Note: nl mammo but breast u/s with abnormal finding April 2017 (interval growth of L breast mass, now with vascularity), declined core bx on multiple conversations; 12/07/17, pt agreed to plan rpt mammo 2021 Last Addressed Date: 04/14/2021; Status: Chronic; Recent NextGen Note: nl mammo but breast u/s with abnormal finding April 2017 (interval growth of L breast mass, now with vascularity), declined core bx on multiple conversations; 12/07/17, pt agreed to plan rpt mammo 2021 Vitamin D deficiency 11/30/2023 Assessment & Plan (04/18/2024 1:28 PM EDT): Check vitamin D and complete vitamin D prescription. Encounters Date Type Department Care Team Description 04/20/2024 Telephone [facility] [address] [place] [phone] Carina Nolasco MD Durable Medical Equipment 04/18/2024 9:15 AM EDT Office Visit [facility] [address] [place] [phone] Carina Nolasco MD Essential hypertension (Primary Dx); Type 2 diabetes mellitus with hyperglycemia, without long-term current use of insulin ([facility]); Acquired hypothyroidism; Vitamin D deficiency; Sciatica, unspecified laterality; Hyperlipidemia, unspecified hyperlipidemia type; Hypertensive urgency 04/18/2024 Refill [facility] [address] [place] [phone] Carina Nolasco MD 04/18/2024 Travel 04/11/2024 Patient Outreach [facility] [address] [place] [address] Carina Nolasco MD 04/08/2024 Refill [facility] [address] [place] [phone] Becky Porter MD Hyperlipidemia, unspecified hyperlipidemia type; Essential hypertension 03/28/2024 Refill [facility] [address] [place] [phone] Becky Porter MD Vitamin D deficiency 03/26/2024 Refill [facility] [address] [place] [address] Becky Porter MD Essential hypertension 02/21/[address] [phone] Tanvi Grant FNP Medication Question 02/21/2024 Refill [facility] [address] [place] [address] Tanvi Grant FNP Acquired hypothyroidism 01/29/2024 Refill [facility] [address] [place] [address] Tanvi Grant FNP Essential hypertension 01/24/2024 Refill [facility] [address] [place] [address] Tanvi Grant FNP Type 2 diabetes mellitus with hyperglycemia, without long-term current use of insulin ([facility]) from Last 3 Months Social History Tobacco Use Types Packs/Day Years Used Date Smoking Tobacco: Never Smokeless Tobacco: Never Tobacco Cessation:Counseling Given: Not Answered Comments Unknown Sex and Gender Information Value Date Recorded Sex Assigned at Female 08/09/2023 8:02 AM EDT Legal Sex Female 6:55 PM EDT Gender Identity Female 05/21/2023 6:55 PM EDT Sexual Orientation Straight 05/21/2023 6: 55 PM EDT Last Filed Vital Signs Vital Sign Reading Time Taken Comments Blood Pressure 215/105 04/18/2024 9:45 AM EDT Pulse 92 04/18/2024 9:25 AM EDT Temperature 36.8 ??C (98.2 ??F) 04/18/2024 9:25 AM ED T Respiratory Rate 16 04/18/2024 9:25 AM EDT Oxygen Saturation 96% 11/30/2023 10:03 AM EDT Inhaled Oxygen Concentration - - Weight 70.5 kg (155 lb 8 oz) 04/18/2024 9:25 AM EDT Height 148.6 cm (4' 10.5 ) 04/18/2024 9:25 AM ED T Body Mass Index 31.95 04/18/2024 9:25 AM EDT Plan of Treatment Upcoming Encounters Date Type Department Care Team (Late st Contact Info) Description 07/07/2024 11:15 AM EDT Office Visit [facility] [address] [place] [address] Carina Nolasco MD [address] [place] [address] Health Maintenance Due Date Last Done Comments CT Colonography 1958 Colonoscopy 1958 Depression Screening 1958 FIT DNA/Cologuard 1958 FOBT 1958 SDOH Screening 1958 Sigmoidoscopy 1958 Diabetes: Foot Exam 1968 Eye Exam 1968 Alcohol/Substance Use Screening 1970 Hepatitis C Screening 1976 Hepatitis A Vaccines (1 of 2 - Risk 2-dose series) 1977 Pneumococcal Vaccine: 50+ Years (1 of 2 - PCV) 1977 IPV Vaccines (3 of 3 - 4-dose series) 02/28/1998 08/28/1997, 10/22/1975 Zoster Vaccines (1 of 2) 2008 Hepatitis B Vaccines (1 of 3 - Risk 3-dose series) 2018 RSV Patients and Patients Aged 60 years or older (1 - Risk 60-74 years 1-dose series) 2018 Mammogram 05/07/2023 05/06/2021 Lipid Panel 06/23/2023 06/22/2022 COVID-19 Vaccine ( season) 2023 Influenza Vaccine (#1) 2023 03/28/2015 Diabetes: Urine Protein Screening 01/27/2024 01/26/2023 Colorectal Cancer Screening 02/03/2024 FIT 02/03/2024 02/02/2023 Diabetes: Hemoglobin A1C 07/19/2024 025, 11/30/2023, 04/26/2023, Additional history exists DTaP/Tdap/Td Vaccines (3 - Td or Tdap) 03/28/2025 03/28/2015, 10/22/1975 Tobacco Screening 04/18/2025 04/18/2024 Cervical Cancer Screening 04/14/2026 HPV/Cotest 04/14/2026 04/14/2021 Pap Smear 04/14/2026 04/14/2021 HIB Vaccines Aged Out No longer eligi ble based on patient's age to complete this topic HPV Vaccines Aged Out No longer eligi ble based on patient's age to complete this topic Meningococcal Vaccine Aged Out No courtney nadege eligible based on patient's age to complete this topic RSV under 20 months Aged Out No longe r eligible based on patient's age to complete this topic Rotavirus Vaccines Aged Out No longer eligible based on patient's age to complete this topic Procedures Procedure Name Priority Date/Time Associated Diagnosis Comments ECG 12-LEAD Routine 04/18/2024 2:49 PM EDT Essential hypertension Hypertensive urgency POCT GLYCATED HEMOGLOBIN, TOTAL Routine 04/18/2024 9:36 AM EDT Type 2 diabetes mellitus with hyperglycemia, without long-term current use of insulin ([facility]) POCT GLUCOSE Routine 04/18/2024 9:26 AM EDT Type 2 diabetes mellitus with hyperglycemia, without long-term current use of insulin ([facility]) FECAL IMMUNOCHEMICAL TEST Routine 02/02/2023 DIABETES: URINE PROTEIN SCREENING Routine 01/26/2023 LIPID PANEL, STANDARD Routine 06/22/2022 MAMMOGRAPHY Routine 05/06/2021 PAP/HPV Routine 04/14/2021 from Last 3 Months or Most Recently Relevant to Health Maintenance Results * ECG 12 lead (04/18/2024 2:49 PM EDT) Narrative Carina Nolasco MD - 04/18/2024 2:49 PM EDT NSR @ 98 bpm, normal axis, no ST/T abn or any ischemic changes. us Carina Nolasco MD ECG ORDERABLES Final Re sult * (ABNORMAL) POCT HGB A1C (04/18/2024 9:36 AM EDT) Hemoglobin A1C 10.0(A) 4.0 - 6.0 % QC Media Lot # [id number] Lot# Expiration Date 926 Blood 04/18/2024 9:36 AM EDT Carina Nolasco MD POINT OF CARE TEST ENTER /EDIT ORDERABLES Final Result * (ABNORMAL) POCT Glucose (04/18/2024 9:26 AM EDT) Pathologist [facility] Glucose Blood, POC 206(A) 60 - 200 mg/dL QC Media Lot # [id number] Lot# Expiration Date 82,625 Blood Capillary blood specimen / Unknown 04/18/2024 9:26 AM EDT Result [facility] Carina Nolasco MD POINT OF CARE TEST ENTER /EDIT ORDERABLES Final Result * Fecal Immunochemical Test (02/02/2023) Pathologist [facility] Fecal Immunochemical Test Nonreactive Borderline, Nonreactive, Weakly Reactive, Inconclusive Stool Rectal contents / Unknown Result [facility] Historical Provider HEALTH MAINTENANCE Final Result * Diabetes: Urine Protein Screening (01/26/2023) Pathologist [facility] Microalbumin, Urine 25 Urine Historical Provider HEALTH MAINTENANCE Final Result * Lipid Panel, Standard (06/22/2022) Pathologist [facility] LDL Cholesterol 122 mg/dL Blood Venous blood specimen / Unknown Result [facility] Historical Provider LAB BLOOD ORDERABLES Zulma l Result * Mammography (05/06/2021) Mammogram BIRADS 1 Normal, Abnormal, BIRADS 1 , BIRADS 2 Anatomical Region Laterality Modality Other Historical Provider HEALTH MAINTENANCE Final Result * HM PAP/HPV (04/14/2021) Pap Smear 1. NILM 1. NILM HPV Not Detected Undetected, Indeterminat e, Quantitative , Not Detected Historical Provider HEALTH MAINTENANCE Final Result from Last 3 Months or Most Recently Relevant to Health Maintenance Insurance MEDICARE Member Subscriber Plan / Payer (Ef fective 2024-Present) Name:Kathryn Goins Member ID:[id number] Relation to Subscriber:Self Name:Kathryn Goins Subscriber ID:[id number] Payer ID:[facility] Group ID:Not on file Type:Medicare [facility] [address] [phone] [facility] Care Teams Bookkeeping Service Sales Agent Relationship Specialty Start Date End Date Carina Nolasco MD [address] [place] [phone] PCP - General Internal Medicine 04/18/24
--- OUTSIDE RECORDS SUMMARY | 2024-04-21 09:48 | XMS_ITS | Encounter Summary ---
Author Organization [employer] [facility] Address [address] [place] [address] [place] [address] Care Team Providers Care Team Sports Sales Associate Name Role Phone Carina Nolasco MD Primary Care Provider + Reason for Visit * Reason Comments Med Refill Encounter Details Date Type Department Care Team (Late st Contact Info) Description 01/29/2024 Refill [facility] [address] [place] [address] Tanvi Grant FNP [address] [place] [phone] Essential hypertension Social History Tobacco Use Types [...] Visit [facility] [address] [place] [address] Carina Nolasco MD [address] [place] [address] documented as of this encounter Visit Diagnoses Diagnosis Essential hypertension Unspecified essential hypertension documented in this encounter Care Teams Team Sports Sales Associate Relationship Specialty Start Date End Date Carina Nolasco MD [address] [place] [phone] PCP - General Internal Medicine 04/18/24 documented as of this encounter
--- OUTSIDE RECORDS SUMMARY | 2024-04-21 09:48 | XMS_ITS | Encounter Summary ---
Author Organization [employer] Address [address] [place] [address] [address] [place] [address] Care Team Providers Care Principal Secretary Name Role Phone Carina Nolasco MD Primary Care Provider + Reason for Visit * Reason Comments Med Refill Encounter Details Date Type Department Care Team (Late st Contact Info) Description 12/27/2023 Refill [facility] OB-Geropsychologist [address] [place] [phone] Aline Dash MD Social History [...] * Telephone Encounter - Juancarlos Darby - 12/29/2023 12:27 PM EST Approving, but needs appt for additional refills. * Telephone Encounter - Devorah Peters RN - 12/29/2023 8:38 AM EST Requested Prescriptions Pending Prescriptions Disp Refills ferrous gluconate (Fergon) 324 (38 Fe) MG tablet [Pharmacy Med Name: FERROUS GLUCONATE 324 MG TAB] 90 tablet 3 Sig: TAKE 1 TABLET BY MOUTH EVERY DAY Med Refill Request reviewed by Med Refill Principal Secretary, Devorah Peters RN. Last Visit: 04/2023 w PCP 06/2023 w DM Nurse Med Refill is acceptable at this time. [facility] Pharmacy will not send labs for Provider Review *11/30/2023* will Task Scheduling to schedule Next visit RX Pended please review and update quantity and refill as needed Please reach out to Team staff as needed Ty documented in this encounter Plan of Treatment Upcoming Encounters Date Type Department Care Team (Late st Contact Info) Description 07/07/2024 11:15 AM EDT Office Visit [facility] MED[facility]INE [address] [place] [phone] Carina Nolasco MD [address] [place] [phone] documented as of this encounter Visit Diagnoses Not on filedocumented in this encounter Care Teams Principal Secretary Relationship Specialty Start Date End Date Carina Nolasco MD [address] [place] [phone] PCP - General Internal Medicine 04/18/24 documented as of this encounter
--- OUTSIDE RECORDS SUMMARY | 2024-04-21 09:48 | XMS_ITS | Encounter Summary ---
Author Organization [employer] Address [address] 7t [place] [address] Care Team Providers Care Egg Sorter Name Role Phone Carina Nolasco MD Primary Care Provider + Encounter Details Date Type Department Care Team (Late st Contact Info) Description 11/30/2023 Abstract [facility] [address] [place], [place] [phone] Becky Porter MD [address] [place] [address] Hypertension, unspecified type Social History Tobacco Use Types Packs/Day Years [...] Sign Reading Time Taken Comments Blood Pressure 187/100 11/30/2023 9:36 AM EDT Pulse 88 11/30/2023 9:28 AM EDT Temperature 37.1 ??C (98.7 ??F) 11/30/2023 9:28 AM ED T Respiratory Rate - - Oxygen Saturation 96% 11/30/2023 9:28 AM EDT room air Inhaled Oxygen Concentration - - Weight - - Height - - Body Mass Index - - documented in this encounter Plan of Treatment Upcoming Encounters Date Type Department Care Team (Late st Contact Info) Description 07/07/2024 11:15 AM EDT Office Visit [facility] [address] [place] [address] Carina Nolasco MD [address] [place] [address] documented as of this encounter Visit Diagnoses Diagnosis Hypertension, unspecified type documented in this encounter Care Teams Egg Sorter Relationship Specialty Start Date End Date Carina Nolasco MD [address] [place] [address] PCP - General Internal Medicine 04/18/24 documented as of this encounter
--- OUTSIDE RECORDS SUMMARY | 2024-04-21 09:48 | XMS_ITS | Encounter Summary ---
Author Organization [facility] [facility] Address [address] [place] [address] [place] [address] Care Team Providers Care Layout Worker Name Role Phone Carina Nolasco MD Primary Care Provider + Reason for Visit * Reason Comments Med Refill Encounter Details Date Type Department Care Team (Late st Contact Info) Description 01/02/2024 Refill [facility] [address] [place] [address] [phone] Tanvi Grant FNP [address] [place] [phone] Type 2 diabetes mellitus with hyperglycemia, without long-term current use of insulin (CMS/HCC) Social History Tobacco Use Types Packs/Day [...] 07/07/2024 11:15 AM EDT Office Visit [facility] [address] [place] [address] [phone] Carina Nolasco MD [address] [place] [address] [phone] documented as of this encounter Visit Diagnoses Diagnosis Type 2 diabetes mellitus with hyperglycemia, without long-term current use of insulin (CMS/HCC) documented in this encounter Care Teams Layout Worker Relationship Specialty Start Date End Date Carina Nolasco MD [address] [place] [address] PCP - General Internal Medicine 04/18/24 documented as of this encounter
--- OUTSIDE RECORDS SUMMARY | 2024-04-21 09:48 | XMS_ITS | Encounter Summary ---
Author Organization [employer] [facility] Address [address] [place] [address] [place] [address] Care Team Providers Care Animal Rehabilitator Name Role Phone Carina Nolasco MD Primary Care Provider + Reason for Visit * Reason Comments Med Refill Encounter Details Date Type Department Care Team (Late st Contact Info) Description 01/24/[address] [facility] [address] [place] [address] [phone] Tanvi Grant FNP [address] [place] [phone] Type 2 diabetes mellitus with hyperglycemia, [...] Description 07/07/2024 11:15 AM EDT Office Visit [facility] [address] [place] [address] [phone] Carina Nolasco MD [address] [place] [address] [phone] documented as of this encounter Visit Diagnoses Diagnosis Type 2 diabetes mellitus with hyperglycemia, without long-term current use of insulin (CMS/HCC) documented in this encounter Care Teams Animal Rehabilitator Relationship Specialty Start Date End Date Carina Nolasco MD [address] [place] [address] PCP - General Internal Medicine 04/18/24 documented as of this encounter
[2024-04-21 11:23] LABS: MANUAL DIFF FLAG NO
[2024-04-21 11:42] LABS: Basophils Percent Auto 0.3 % (0-2); Eosinophils Absolute Auto 0.1 X10*3/uL (0.0-0.4); Eosinophils Percent Auto 1.3 % (0-4); Hematocrit 40.6 % (37.0-47.0); Hemoglobin 13.9 g/dl (12.0-16.0); Imm Gran Abs Auto 0.02 X10*3/uL (0.00-0.03); Imm Gran Pct Auto 0.3 % (0.0-0.4); Lymphocytes Absolute Auto 2.6 X10*3/uL (1.2-4.9); Lymphocytes Percent Auto 42.1 % (20-40); Mean Corpuscular HGB Conc 34.2 g/dl (31.0-35.0); Mean Corpuscular Hemoglobin 29.1 pg (27.0-33.0); Mean Corpuscular Volume 84.9 fL (80.0-98.0); Mean Platelet Volume 11.3 fL (9.4-12.3); Monocytes Absolute Auto 0.6 X10*3/uL (0.1-1.2); Monocytes Percent Auto 9.3 % (2-11); Neutrophils Absolute Auto 2.8 x10*3/uL (2.0-8.3); Neutrophils Percent Auto 46.7 % (45-73); Platelet Count 207 X10*3/uL (160-400); Red Blood Count 4.78 X10*6/uL (4.20-5.50); Red Cell Distribution Width 12.6 % (11.0-16.0); White Blood Count 6.1 X10*3/uL (4.8-10.8)
[2024-04-21 12:02] LABS: Alanine Aminotransferase 99 U/L (0-31); Alkaline Phosphatase 59 U/L (39-117); Anion Gap 12 (12-20); Aspartate Amino Transferase 62 U/L (5-31); Bilirubin Total 0.5 mg/dL (0.0-1.0); Blood Urea Nitrogen 16 mg/dL (9-16); Calcium 9.6 mg/dL (8.4-10.2); Carbon Dioxide 25 mmol/L (22-29); Chloride 107 mmol/L (96-108); Estimated Glomerular Filt Rate 59; Glucose Random 199 mg/dL (60-115); Potassium 4.3 mmol/L (3.3-5.1); Sodium 140 mmol/L (135-145); Total Protein 7.8 g/dL (6.5-8.0)
[2024-04-21 12:08] LABS: TSH reflex Free T4 1.73 uIU/mL (0.32-4.0); Vitamin D 25-OH Total 34.1 ng/mL (>30)
== END 2024-04-21 09:07 | disposition home or self-care (01) ==
LOC: HO.HHCL 09:06
PROVIDERS: Visit Provider Internal Medicine
DX: E55.9 Vitamin D deficiency, unspecified (principal); E03.9 Hypothyroidism, unspecified; M54.30 Sciatica, unspecified side; E11.65 Type 2 diabetes mellitus with hyperglycemia
CPT/HCPCS: 36415; 80053; 82306; 84443; 85025

== ENCOUNTER 2024-04-28 09:06 | Outpatient (REF) | payer MEDICAID, SELFPAY ==
[2024-04-28 11:32] LABS: Gamma Glutamyl Transpeptidase 58 U/L (7-33)
[2024-04-28 12:06] LABS: HBS Num1 0.16 mIU/mL (0-7.99); HBc Num1 0.07 S/CO (0.00-0.79); HBsAGNum1 0.31 S/CO (0.00-0.99); Hepatitis A Antibody IgM 0.26 Index (0-0.79); Hepatitis B Core Antibody Nonreactive (Nonreactive); Hepatitis B Surface Antigen Negative (Negative); ~HepC Num1 0.16 S/CO (0.00-0.79); ~Hepatitis A Antibody IgM Nonreactive (Nonreactive); ~Hepatitis B Surface Antibody NONREACTIVE (Nonreactive); ~Hepatitis C Antibody Nonreactive (Nonreactive)
[2024-04-28 12:09] LABS: Syphilis Screen Reactive (Nonreactive)
[2024-05-02 14:37] LABS: RPR Quantitative Reactive 1:2 (Nonreactive); T.Pallidum Particle Agg Test Reactive (Nonreactive)
[2024-05-03 05:38] LABS: Smooth Muscle Antibody <20 U (<20)
== END 2024-04-28 09:07 | disposition home or self-care (01) ==
LOC: HO.HHCL 09:06
PROVIDERS: Visit Provider Internal Medicine
DX: K76.0 Fatty (change of) liver, not elsewhere classified (principal); R79.89 Other specified abnormal findings of blood chemistry; Z72.89 Other problems related to lifestyle
CPT/HCPCS: 36415; 82977; 86015; 86592; 86704; 86706; 86709; 86780; 86803; 87340

== ENCOUNTER 2024-05-26 07:35 | Outpatient (REF) | payer MEDICAID, SELFPAY ==
--- NOTE | ~2024-05-26 | US_ITS ---
EXAMINATION: ULTRASOUND RENAL DOPPLER, BILATERALLY. ULTRASOUND RENAL BILATERALLY. CLINICAL INFORMATION: Uncontrolled hypertension. COMPARISON: No priors. TECHNIQUE: Spectral Doppler analysis: Right Kidney: -Peak systolic velocity in the proximal right renal artery = 165 cm/s. Normal waveforms. -Peak systolic velocity in the mid right renal artery = 161 cm/s. Normal waveforms. -Peak systolic velocity in the distal right renal artery = 122 cm/s. Normal waveforms. -Patent right renal vein. -Upper pole interlobar artery resistive index of 0.64. -Midpole interlobar artery resistive index of 0.72. -Lower pole interlobar artery resistive index of 0.65. RAR right = 2.29 Left Kidney: -Peak systolic velocity in the proximal left renal artery = 92 cm/s. Normal waveforms. -Peak systolic velocity in the mid left renal artery = 90 cm/s. Normal waveforms. -Peak systolic velocity in the distal left renal artery = 153 cm/s. Normal waveforms. -Patent left renal vein. -Upper pole interlobar artery resistive index of 0.6. -Mid pole interlobar artery resistive index of 0.72. -lower pole interlobar artery resistive index of 0.75. RAR left = 2.13 Aorta: -Peak systolic velocity = 72 cm/s. RIGHT KIDNEY: 9 x 5 x 5 cm. Volume: 122 cc. Normal echotexture. Normal renal cortical thickness. Mild prominence of the pelvicalyceal system. 1.1 cm anechoic lesion at the corticomedullary junction upper pole. Punctate 3 mm hyperechoic lesion in the mid portion. 4 mm hyperechoic structure in the upper pole. LEFT KIDNEY: 9 x 5 x 6 cm. Volume: 127 cc. Normal echotexture. Normal renal cortical thickness. Multifocal, different sizes less than 1.8 cm anechoic lesions. Punctate, 6 mm hyperechoic structures. Mild prominence of the pelvicalyceal system. US/US renal BI IMPRESSION: Bilateral nephrolithiasis. Mild hydronephrosis, bilaterally. Bosniak type I/II cysts, bilaterally. No hemodynamically significant stenosis by ultrasound criteria at either main renal artery. Electronically signed by: Archie Hurtado MD 05/26/2024 09:31 AM EDT
--- NOTE | ~2024-05-26 | US_ITS ---
EXAMINATION: ULTRASOUND RENAL DOPPLER, BILATERALLY. ULTRASOUND RENAL BILATERALLY. CLINICAL INFORMATION: Uncontrolled hypertension. COMPARISON: No priors. TECHNIQUE: Spectral Doppler analysis: Right Kidney: -Peak systolic velocity in the proximal right renal artery = 165 cm/s. Normal waveforms. -Peak systolic velocity in the mid right renal artery = 161 cm/s. Normal waveforms. -Peak systolic velocity in the distal right renal artery = 122 cm/s. Normal waveforms. -Patent right renal vein. -Upper pole interlobar artery resistive index of 0.64. -Midpole interlobar artery resistive index of 0.72. -Lower pole interlobar artery resistive index of 0.65. RAR right = 2.29 Left Kidney: -Peak systolic velocity in the proximal left renal artery = 92 cm/s. Normal waveforms. -Peak systolic velocity in the mid left renal artery = 90 cm/s. Normal waveforms. -Peak systolic velocity in the distal left renal artery = 153 cm/s. Normal waveforms. -Patent left renal vein. -Upper pole interlobar artery resistive index of 0.6. -Mid pole interlobar artery resistive index of 0.72. -lower pole interlobar artery resistive index of 0.75. RAR left = 2.13 Aorta: -Peak systolic velocity = 72 cm/s. RIGHT KIDNEY: 9 x 5 x 5 cm. Volume: 122 cc. Normal echotexture. Normal renal cortical thickness. Mild prominence of the pelvicalyceal system. 1.1 cm anechoic lesion at the corticomedullary junction upper pole. Punctate 3 mm hyperechoic lesion in the mid portion. 4 mm hyperechoic structure in the upper pole. LEFT KIDNEY: 9 x 5 x 6 cm. Volume: 127 cc. Normal echotexture. Normal renal cortical thickness. Multifocal, different sizes less than 1.8 cm anechoic lesions. Punctate, 6 mm hyperechoic structures. Mild prominence of the pelvicalyceal system. US/US renal doppler IMPRESSION: Bilateral nephrolithiasis. Mild hydronephrosis, bilaterally. Bosniak type I/II cysts, bilaterally. No hemodynamically significant stenosis by ultrasound criteria at either main renal artery. Electronically signed by: Archie Hurtado MD 05/26/2024 09:31 AM EDT
--- OUTSIDE RECORDS SUMMARY | 2024-05-26 07:37 | XMS_ITS | Encounter Summary ---
Author Organization [employer] Address [address] [place] [address] [place] [address] Care Team Providers Care Manager Of Corporate Name Role Phone Carina Nolasco MD Primary Care Provider + Reason for Visit * Reason Comments Med Refill Encounter Details Date Type Department Care Team (Late st Contact Info) Description 08/18/2023 Refill [facility] OB-Machine Set Up Technician [address] [place] [phone] Tanvi Grant FNP [address] [place] [phone] Social History Tobacco Use Types Packs/Day Years [...] Description 07/07/2024 11:15 AM EDT Office Visit [facility] [address] [place], [place] [phone] Carina Nolasco MD [address] [place] [address] documented as of this encounter Visit Diagnoses Not on filedocumented in this encounter Care Teams Manager Of Corporate Relationship Specialty Start Date End Date Carina Nolasco MD [address] [place] [address] PCP - General Internal Medicine 04/18/24 documented as of this encounter
--- OUTSIDE RECORDS SUMMARY | 2024-05-26 07:37 | XMS_ITS | Encounter Summary ---
Author Organization [employer] Address [address] [place] [address] Care Team Providers Care Emergency Room Clinician Name Role Phone Carina Nolasco MD Primary Care Provider + Reason for Visit * Reason Comments Med Refill Encounter Details Date Type Department Care Team (Late st Contact Info) Description 09/17/[address] [phone] Myah Bermudez PA-C [address] [place] [phone] Social History Tobacco Use Types Packs/Day Years [...] Description 07/07/2024 11:15 AM EDT Office Visit [facility] [address] [place], [place] [phone] Carina Nolasco MD [address] [place] [address] documented as of this encounter Visit Diagnoses Not on filedocumented in this encounter Care Teams Emergency Room Clinician Relationship Specialty Start Date End Date Carina Nolasco MD [address] [place] [address] PCP - General Internal Medicine 04/18/24 documented as of this encounter
--- OUTSIDE RECORDS SUMMARY | 2024-05-26 07:37 | XMS_ITS | Encounter Summary ---
Author Organization [employer] Address [address] [place] [address] [place] [address] Care Team Providers Care Core Winding Operator Name Role Phone Carina Nolasco MD Primary Care Provider + Reason for Visit * Reason Comments Med Refill Encounter Details Date Type Department Care Team (Late st Contact Info) Description 09/17/2023 Refill [facility] OB-Logging Operations Inspector [address] [place] [phone] Aline Dash MD Social History [...] 07/07/2024 11:15 AM EDT Office Visit [facility] [address] [place] [address] Carina Nolasco MD 230 [place], [place] [phone] documented as of this encounter Visit Diagnoses Not on filedocumented in this encounter Care Teams Core Winding Operator Relationship Specialty Start Date End Date Carina Nolasco MD [address] [place] [phone] PCP - General Internal Medicine 04/18/24 documented as of this encounter
--- OUTSIDE RECORDS SUMMARY | 2024-05-26 07:37 | XMS_ITS | Encounter Summary ---
Author Organization [employer] Address [address] [place] [address] [place] [address] Care Team Providers Care Stripper Cutter Machine Name Role Phone Carina Nolasco MD Primary Care Provider + Reason for Visit * Reason Comments Med Refill Encounter Details Date Type Department Care Team (Late st Contact Info) Description 10/28/[address] [phone] Yessenia Dumont MD [address] [place] [phone] Social History Tobacco Use Types Packs/Day Years [...] Visit [facility] [address] [place] [address] Carina Nolasco MD [address] [place] [address] documented as of this encounter Visit Diagnoses Not on filedocumented in this encounter Care Teams Stripper Cutter Machine Relationship Specialty Start Date End Date Carina Nolasco MD [address] [place] [phone] PCP - General Internal Medicine 04/18/24 documented as of this encounter
--- OUTSIDE RECORDS SUMMARY | 2024-05-26 07:37 | XMS_ITS | Encounter Summary ---
Author Organization [employer] Address [address] [place] [address] [place] [address] Care Team Providers Care Director Of Social Services Name Role Phone Carina Nolasco MD Primary Care Provider + Reason for Visit * Reason Comments Med Refill Encounter Details Date Type Department Care Team (Late st Contact Info) Description 07/19/2023 Refill [facility] OB-Physician Specialist [address] [place] [phone] Aline Dash MD Social History [...] Description 07/07/2024 11:15 AM EDT Office Visit [facility] [address] [place], [place] [phone] Carina Nolasco MD [address] [place], [place] [phone] documented as of this encounter Visit Diagnoses Not on filedocumented in this encounter Care Teams Director Of Social Services Relationship Specialty Start Date End Date Carina Nolasco MD [address] [place] [phone] PCP - General Internal Medicine 04/18/24 documented as of this encounter
--- OUTSIDE RECORDS SUMMARY | 2024-05-26 07:37 | XMS_ITS | Encounter Summary ---
Author Organization [employer] Address [address] [place] [address] 7 [place] [address] Care Team Providers Care Pr Intern Name Role Phone Carina Nolasco MD Primary Care Provider + Reason for Visit * Reason Comments Med Refill Encounter Details Date Type Department Care Team (Late st Contact Info) Description 09/04/2023 Refill [facility] OB-Collection Analyst [address] [place] [phone] Aline Dash MD Type 2 [...] Description 07/07/2024 11:15 AM EDT Office Visit [facility] [address] [place] [address] Carina Nolasco MD [address] [place], [place] [phone] documented as of this encounter Visit Diagnoses Diagnosis Type 2 diabetes mellitus without complications (CMS/HCC) documented in this encounter Care Teams Pr Intern Relationship Specialty Start Date End Date Carina Nolasco MD [address] [place] [phone] PCP - General Internal Medicine 04/18/24 documented as of this encounter
--- OUTSIDE RECORDS SUMMARY | 2024-05-26 07:38 | XMS_ITS | Clinical Summary ---
Author Organization [employer] Address [address] [facility] 7[address] [place] [address] Care Team Providers Care Chalk Extruding Machine Operator Name Role Phone Carina Nolasco MD Primary Care Provider + Allergies No known active allergies Medications amLODIPine (Norvasc) 10 MG tabletIndications: Essential hypertension Take 1 tablet (10 mg) by mouth Once per day. 90 tablet 1 11/30/19 24 Active FreeStyle lancetsIndications :Type 2 diabetes mellitus with hyperglycemia, without long-term current use of insulin ([facility]) 1 each by Other route 2 times daily. 100 each 1 11/30/19 24 Active ferrous gluconate (Fergon) 324 (38 Fe) MG tablet TAKE 1 TABLET BY MOUTH EVERY DAY 90 tablet 12/29/19 24 Active FREESTYLE LITE test stripIndications:T ype 2 diabetes mellitus with hyperglycemia, without long-term current use of insulin (CMS/[facility]) 1 each by Other route 2 times daily. 100 each 2 02/20/19 25 Active metFORMIN XR (Glucophage-XR) 500 MG 24 hr tabletIndications: Type 2 diabetes mellitus with hyperglycemia, without long-term current use of insulin ([facility]) Take 2 tablets (1,000 mg) by mouth 2 times daily. 360 tablet 3 04/19/19 25 Active gabapentin (Neurontin) 300 MG capsuleIndications :Sciatica, unspecified laterality Take 1 capsule (300 mg) by mouth 2 times daily. 180 capsule 1 04/19/19 25 Active levothyroxine (Synthroid, Levoxyl) 200 MCG tabletIndications: Acquired hypothyroidism Take 1 tablet (200 mcg) by mouth Once per day. 90 tablet 1 04/19/19 25 Active atorvastatin (Lipitor) 40 MG tabletIndications: Hyperlipidemia, unspecified hyperlipidemia type Take 1 tablet (40 mg) by mouth Once per day. 90 tablet 1 04/19/19 25 Active empagliflozin (Jardiance) 25 MGIndications:Type 2 diabetes mellitus with hyperglycemia, without long-term current use of insulin ([facility]) Take 1 tablet (25 mg) by mouth in the morning. 90 tablet 1 04/19/19 25 Active metoprolol succinate XL (Toprol-XL) 50 MG 24 hr tabletIndications: Essential hypertension Take 1 tablet (50 mg) by mouth Once per day. 90 tablet 1 04/19/19 25 Active lisinopril 30 MG tabletIndications: Essential hypertension Take 1 tablet (30 mg) by mouth Once per day. 90 tablet 1 04/19/19 25 Active spironolactone (Aldactone) 50 MG tabletIndications: Essential hypertension Take 1 tablet (50 mg) by mouth Once per day. 90 tablet 1 04/19/19 25 Active polyvinyl alcohol (Liquifilm Tears) 1.4 % ophthalmic solution INSTILL 2 DROPS INTO AFFECTED EYE(S) IF NEEDED IN THE MORNING AT NOON,AND AT BEDTIME FOR DRY EYE 15 mL 3 04/19/19 25 Active D3-1000 25 MCG (1000 UT) capsuleIndications :Vitamin D deficiency TAKE 1 CAPSULE BY MOUTH EVERY DAY 90 capsule 1 05/03/19 25 Active cholecalciferol VITAMIN D (Vitamin D-3) 25 MCG (1000 UT) capsuleIndications :Vitamin D deficiency Take 1 capsule (25 mcg) by mouth Once per day. 90 capsule 1 11/30/19 24 025 Discontinued acetaminophen (Tylenol Extra Strength) 500 MG tablet Take 1 tablet (500 mg) by mouth every 6 (six) hours if needed for mild pain. 120 tablet 04/19/19 25 025 Active Problems Problem Noted Date Diagnosed Date History of syphilis 05/05/2024 Overview (05/05/2024): VANNA MEJÍA reported pos Hx syphilis on 2007, with a titer 1:32. Pt received tx with 3 doses of PCN. Hypertensive urgency 04/18/2024 Assessment & Plan (04/18/2024 [...] can't remember with whom. 2021 referred to [facility], never got appt 06/30 re-referred for ophtho [...] remember with whom. 2021 -> referred to [facility], never got appt 06/30 re-referred for ophtho [...] Encounters Date Type Department Care Team Description 05/10/2024 Telephone [facility] [address] [place] [address] [phone] Carina Nolasco MD Durable Medical Equipment 05/04/2024 Telephone [facility] [address] [place] [address] [phone] Carina Nolasco MD Care Coordination 05/01/2024 Refill [facility] [address] [place] [address] [phone] Becky Porter MD Vitamin D deficiency 04/28/2024 Orders Only [facility] [address] [place] [address] [phone] Carina Nolasco MD 04/26/2024 Telephone [facility] [address] [place] [address] [phone] Carina Nolasco MD Results 04/25/2024 Orders Only [facility] [address] [place] [address] [phone] Carina Nolasco MD Fatty liver (Primary Dx); Abnormal LFTs; Other problems related to lifestyle 04/20/2024 Telephone [facility] [address] [place] [address] [phone] Carina Nolasco MD Durable Medical Equipment 04/18/2024 9:15 AM EDT Office Visit [facility] [address] [place] [address] [phone] Carina Nolasco MD Essential hypertension (Primary Dx); Type 2 diabetes mellitus with hyperglycemia, without long-term current use of insulin ([facility]); Acquired hypothyroidism; Vitamin D deficiency; Sciatica, unspecified laterality; Hyperlipidemia, unspecified hyperlipidemia type; Hypertensive urgency 04/18/2024 Refill [facility] [address] [place] [address] Carina Nolasco MD 04/18/2024 Travel 04/11/2024 Patient Outreach [facility] [address] [place] [address] [phone] Carina Nolasco MD 04/08/2024 Refill [facility] [address] [place] [address] [phone] Becky Porter MD Hyperlipidemia, unspecified hyperlipidemia type; Essential hypertension 03/28/2024 Refill [facility] [address] [place] [address] [phone] Becky Porter MD Vitamin D deficiency 03/26/2024 Refill [facility] [address] [place] [address] Becky Porter MD Essential hypertension from Last 3 Months Social History Tobacco [...] Description 07/07/2024 11:15 AM EDT Office Visit [facility] [address] [place] [address] Carina Nolasco MD [address] [place], [place] [phone] Health Maintenance Due Date Last Done Comments CT Colonography 1958 Colonoscopy 1958 Depression Screening 1958 FIT DNA/Cologuard 1958 FOBT 1958 SDOH Screening 1958 Sigmoidoscopy 1958 Diabetes: Foot Exam 1968 Eye Exam 1968 Alcohol/Substance Use Screening 1970 Hepatitis A Vaccines (1 of 2 - [...] Lipid Panel 06/23/2023 06/22/2022 COVID-19 Vaccine ( - season) 2023 Influenza Vaccine (#1) 2023 03/28/2015 Diabetes: Urine Protein Screening 01/27/2024 01/26/2023 Colorectal Cancer Screening 02/03/2024 FIT 02/03/2024 02/02/2023 Diabetes: Hemoglobin A1C 07/19/2024 025, 11/30/2023, 04/26/2023, Additional history exists DTaP/Tdap/Td Vaccines (3 - Td or Tdap) 03/28/2025 03/28/2015, 10/22/1975 Tobacco Screening 04/18/2025 04/18/2024 Cervical Cancer Screening 04/14/2026 HPV/Cotest 04/14/2026 04/14/2021 Pap Smear 04/14/2026 04/14/2021 Hepatitis C Screening Completed 04/28/2024 HIB Vaccines Aged Out No longer eligi [...] Procedure Name Priority Date/Time Associated Diagnosis Comments CONFIRMATORY SYPHILIS PROFILE Routine 04/28/2024 9:10 AM EDT ACTIN (SMOOTH MUSCLE) ANTIBODY (IGG) Routine 04/28/2024 9:10 AM EDT Fatty liver Abnormal LFTs SYPHILIS SCREEN Routine 04/28/2024 9:10 AM EDT Abnormal LFTs HEPATITIS PANEL, GENERAL Routine 04/28/2024 9:10 AM EDT Abnormal LFTs Other problems related to lifestyle GGT Routine 04/28/2024 9:10 AM EDT Fatty liver Abnormal LFTs CBC WITH AUTO DIFFERENTIAL Routine 04/21/2024 9:10 AM EDT Sciatica, unspecified laterality VITAMIN D,25-OH,TOTAL,IA Routine 04/21/2024 9:10 AM EDT Vitamin D deficiency TSH W/REFLEX TO FT4 Routine 04/21/2024 9 :10 AM EDT Acquired hypothyroidism COMPREHENSIVE METABOLIC PANEL Routine 04/21/2024 9:10 AM EDT Type 2 diabetes mellitus with hyperglycemia, without long-term current use of insulin ([facility]) ECG 12-LEAD Routine 04/18/2024 2:49 PM EDT Essential hypertension Hypertensive urgency POCT GLYCATED HEMOGLOBIN, TOTAL Routine 04/18/2024 9:36 AM EDT Type 2 diabetes mellitus with hyperglycemia, without long-term current use of insulin ([facility]) POCT GLUCOSE Routine 04/18/2024 9:26 AM EDT Type 2 diabetes mellitus with hyperglycemia, without long-term current use of insulin ([facility]) HM FECAL IMMUNOCHEMICAL TEST Routine 02/02/2023 DIABETES: URINE PROTEIN SCREENING Routine 01/26/2023 LIPID PANEL, STANDARD Routine 06/22/2022 HM MAMMOGRAPHY Routine 05/06/2021 HM PAP/HPV Routine 04/14/2021 from Last 3 Months or Most Recently Relevant to Health Maintenance Results * (ABNORMAL) Confirmatory Syphilis Profile (04/28/2024 9:10 AM EDT) Rapid Plasma Reagin, Quant Reactive 1:2(A) Nonreactive [facility] Treponema pallidum Antibody, Particle Agglutination Reactive(A) Nonreactive [facility] Comment:These results must b e reported by the ordering clinician orclinical facility to the [facility] required by state law. 04/28/2024 9:10 AM EDT 04/28/2024 12:09 PM EDT us Carina Nolasco MD LAB BLOOD ORDERABLES Fin al Result [facility] [address] [place] [address] [phone] * (ABNORMAL) Syphilis Screen (04/28/2024 9:10 AM EDT) Syphilis Screen Reactive( A) Nonreactive [facility] Comment:Reactive specimens a re sent to the [facility] Labfor confirmatory tests. Blood 04/28/2024 9:10 AM EDT 04/28/2024 11:07 AM EDT Carina Nolasco MD LAB BLOOD ORDERABLES Fin al Result Performing Organization Address [facility]/ZIP Co de Phone Number [facility] [address] [place] [address] [phone] * Hepatitis Panel, General (04/28/2024 9:10 AM EDT) Pathologist [facility] Hepatitis A IgM Nonreactive Nonreactive [facility] Comment:IgM antibodies to VANCE V not detected; does not exclude earlyacute or recovered HAV infection. ~Hepatitis B Surface Antibody NONREACTIVE Nonreactive [facility] Comment:Nonreactive: < 8.00 mIU/mL Hepatitis B Core Antibody Nonreactive Nonreactive [facility] Hepatitis C Antibody Nonreactive Nonreactive [facility] Comment:Antibodies to HCV no t detected; does not exclude early acuteHCV infection. Hepatitis B Surface Ag Negative Negative [facility] Blood 04/28/2024 9:10 AM EDT 04/28/2024 11:07 AM EDT us Carina Nolasco MD LAB BLOOD ORDERABLES Fin al Result [facility] [address] [place] [address] [phone] * Actin (Smooth Muscle) Antibody (IgG) (04/28/2024 9:10 AM EDT) Smooth Muscle Antibody <20 <20 U [facility] Comment:Reference Range: <20 U: Negative>or=20 U: PositiveAntibodies recognizing actin are the main componentof smooth muscle antibodies associated with auto- immune liver disease. Actin antibodies are found inapproximately 75% of patients with autoimmunehepatitis (AIH) type 1, approximately 65% of patientswith autoimmune cholangitis, approximately 30% ofpatients with primary biliary cirrhosis andapproximately 2% of healthy controls. High values areclosely correlated with AIH type 1.THIS TEST WAS PERFORMED AT:[id number] [place] [address]HTOEUUY Blanka GEORGES MD,PHD Blood Venous blood specimen / Unknown 04/28/2024 9:10 AM EDT 04/28/2024 11:07 AM EDT Carina Nolasco MD LAB BLOOD ORDERABLES Fin al Result Performing Organization Address [facility] Co de Phone Number [facility] [address] [place] [phone] * (ABNORMAL) Gamma Glutamyl Transferase (GGT) (04/28/2024 9:10 AM EDT) Gamma Glutamyl Transpeptidase 58(H) 7 - 33 U/L [facility] Blood Venous blood specimen / Unknown 04/28/2024 9:10 AM EDT 04/28/2024 11:07 AM EDT Carina Nolasco MD LAB BLOOD ORDERABLES Fin al Result Performing Organization Address [facility]/ZIP Co de Phone Number [facility] [address] [place] [phone] * Vitamin D, 25-Hydroxy, Total, Immunoassay (04/21/2024 9:10 AM EDT) Vitamin D 25-OH Total 34.1 >30 ng/mL [facility] Comment: Health Based Reference Values*< 20 ??ng/mL ??Cgemcribw40-59 ng/mL ??Insufficient> 30 ??ng/mL ??Sufficient*Tory OWENS. N Engl J Med. 2007;357:266-280There is no well-established upper level of normal vitamin Dlevels. Some laboratories use 50 ng/mL as an upper limit ofnormal. However, toxicity is patient-dependent and may occurat any level. Careful correlation with the patient'spresentation is necessary and, if there is concern forvitamin D toxicity, treatment should be consideredirrespective of the serum level.Care must be taken in interpreting Vitamin D results fromdifferent laboratories and methodologies. ??Published datademonstrated that results from patients undergoinghemodialysis may show a negative bias when tested withvarious automated 25-OH vitamin D assays when compared toLC- MS/MS.When testing samples from patients whose predominant form ofVitamin D is Vitamin D2, such as patients receiving VitaminD2 supplementation, results that are subtherapeutic shouldbe confirmed with another method such as LC-MS/MS. Blood 04/21/2024 9:10 AM EDT 04/21/2024 11:15 AM EDT us Carina Nolasco MD LAB BLOOD ORDERABLES Fin al Result Performing Organization Address [facility]/ZIP Co de Phone Number [facility] [address] [place] [phone] * TSH with Reflex to Free T4 (04/21/2024 9:10 AM EDT) TSH reflex Free T4 1.73 0.32 - 4.0 uIU/mL [facility] Blood 04/21/2024 9:10 AM EDT 04/21/2024 11:15 AM EDT Carina Nolasco MD LAB BLOOD ORDERABLES Fin al Result Performing Organization Address City/[facility]/ZIP Co de Phone Number [facility] [address] [place] [phone] * (ABNORMAL) CBC auto differential (04/21/2024 9:10 AM EDT) White Blood Count 6.1 4.8 - 10.8 X10*3/uL [facility] Red Blood Count 4.78 4.20 - 5.50 X10*6/uL [facility] Hemoglobin 13.9 12.0 - 16.0 g/dl [facility] Hematocrit 40.6 37.0 - 47.0 % [facility] Mean Corpuscular Volume 84.9 80.0 - 98.0 fL [facility] Mean Corpuscular Hemoglobin 29.1 27.0 - 33.0 pg [facility] Mean Corpuscular HGB Conc 34.2 31.0 - 35.0 g/dl [facility] Red Cell Distribution Width 12.6 11.0 - 16.0 % [facility] Platelet Count 207 160 - 400 X10*3/uL [facility] Mean Platelet Volume 11.3 9.4 - 12.3 fL [facility] Neutrophils Percent Auto 46.7 45 - 73 % [facility] Imm Gran Pct Auto 0.3 0.0 - 0.4 % [facility] Lymphocytes Percent Auto 42.1(H) 20 - 40 % [facility] Monocytes Percent Auto 9.3 2 - 11 % [facility] Eosinophils Percent Auto 1.3 0 - 4 % [facility] Basophils Percent Auto 0.3 0 - 2 % [facility] NRBC Pct Auto 0.0 0.0 - 0.2 /100WBC [facility] Neutrophils Absolute Auto 2.8 2.0 - 8.3 x10*3/uL [facility] Imm Gran Abs Auto 0.02 0.00 - 0.03 X10*3/uL [facility] Lymphocytes Absolute Auto 2.6 1.2 - 4.9 X10*3/uL [facility] Monocytes Absolute Auto 0.6 0.1 - 1.2 X10*3/uL [facility] Eosinophils Absolute Auto 0.1 0.0 - 0.4 X10*3/uL [facility] Basophils Absolute Auto 0.0 0.0 - 0.2 X10*3/uL [facility] NRBC Abs Auto 0.000 0.0 - 0.012 X10*3/uL [facility] Blood Venous blood specimen / Unknown 04/21/2024 9:10 AM EDT 04/21/2024 11:15 AM EDT us Carina Nolasco MD LAB BLOOD ORDERABLES Fin al Result [facility] [address] [place] [address] [phone] * (ABNORMAL) Comprehensive Metabolic Panel (04/21/2024 9:10 AM EDT) Sodium 140 135 - 145 mmol/L [facility] Potassium 4.3 3.3 - 5.1 mmol/L [facility] Chloride 107 96 - 108 mmol/L [facility] Carbon Dioxide 25 22 - 29 mmol/L [facility] Anion Gap 12 12 - 20 [facility] Urea Nitrogen (BUN) 16 9 - 16 mg/dL [facility] Creatinine, Serum 0.95 0.5 - 1.4 mg/dL [facility] Estimated Glomerular Filt Rate 59 [facility] Comment:Chronic Kidney Disea se: Estimated GFR < 60 mL/min/1.95d1Lcrhbr Kidney Disease: Estimated GFR < 15 mL/min/1.73m2 Glucose 199(H) 60 - 115 mg/dL [facility] Calcium 9.6 8.4 - 10.2 mg/dL [facility] Bilirubin, Total 0.5 0.0 - 1.0 mg/dL [facility] Aspartate Amino Transferase 62(H) 5 - 31 U/L [facility] Alanine Aminotransferase 99(H) 0 - 31 U/L [facility] Total Protein 7.8 6.5 - 8.0 g/dL [facility] Albumin Level 4.0 3.5 - 5.0 g/dL [facility] Alkaline Phosphatase 59 39 - 117 U/L [facility] Blood Venous blood specimen / Unknown 04/21/2024 9:10 AM EDT 04/21/2024 11:15 AM EDT Carina Nolasco MD LAB BLOOD ORDERABLES Fin al Result [facility] [address] [place] [phone] [phone] * ECG 12 lead (04/18/2024 2:49 PM [...] TEST ENTER /EDIT ORDERABLES Final Result * HM Fecal Immunochemical Test (02/02/2023) Fecal Immunochemical Test Nonreactive Borderline, Nonreactive, Weakly Reactive, Inconclusive Stool Rectal contents / Unknown Historical Provider HEALTH MAINTENANCE Final Result * Diabetes: Urine Protein Screening (01/26/2023) Pathologist [facility] Microalbumin, Urine 25 Urine [facility] Provider HEALTH MAINTENANCE Final Result * Lipid Panel, Standard (06/22/2022) Pathologist [facility] LDL Cholesterol 122 mg/dL Blood Venous blood specimen / Unknown [facility] Provider LAB BLOOD ORDERABLES Zulma l Result * Mammography (05/06/2021) Pathologist [facility] Mammogram BIRADS 1 Normal, Abnormal, BIRADS 1 , BIRADS 2 Anatomical Region Laterality Modality Other [facility] Provider HEALTH MAINTENANCE Final Result * PAP/HPV (04/14/2021) Pathologist [facility] Pap Smear 1. NILM 1. NILM HPV Not Detected Undetected, Indeterminat e, Quantitative , Not Detected [facility] Provider HEALTH MAINTENANCE Final Result from Last 3 Months or Most Recently Relevant to Health [place] [id number] [facility] Care Teams Chalk Extruding Machine Operator Relationship Specialty Start Date End Date Carina Nolasco MD [address] [place] [phone] PCP - General Internal Medicine 04/18/24
--- OUTSIDE RECORDS SUMMARY | 2024-05-26 07:38 | XMS_ITS | Encounter Summary ---
Author Organization [employer] Address [address] [facility] [facility] [address] [place] [address] Care Team Providers Care It Program Manager Name Role Phone Carina Nolasco MD Primary Care Provider + Encounter Details Date Type Department Care Team (Late st Contact Info) Description 11/30/[address] [facility] WALK[facility] [address] [place], [place] [phone] Becky Porter MD [address] [place] [address] Hypertension, unspecified type Social History Tobacco Use [...] 11:15 AM EDT Office Visit [facility] MEDICINE [address] [place] [address] Carina Nolasco MD [address] [place] [address] documented as of this encounter Visit Diagnoses Diagnosis Hypertension, unspecified type documented in this encounter Care Teams It Program Manager Relationship Specialty Start Date End Date Carina Nolasco MD [address] [place] [phone] PCP - General Internal Medicine 04/18/24 documented as of this encounter
--- OUTSIDE RECORDS SUMMARY | 2024-05-26 07:38 | XMS_ITS | Encounter Summary ---
Author Organization [employer] [facility] Address [address] [place] [address] [place] [address] Care Team Providers Care Ehs Specialist Name Role Phone Carina Nolasco MD Primary Care Provider + Reason for Visit * Reason Comments Med Refill Encounter Details Date Type Department Care Team (Late st Contact Info) Description 01/24/2024 Refill [facility] MED[facility]INE [address] [place] [phone] Tanvi Grant FNP [address] [place] [phone] Type 2 diabetes mellitus with hyperglycemia, [...] Office Visit [facility] MED[facility] [address] [place] [address] [phone] Carina Nolasco MD [address] [place] [address] [phone] documented as of this encounter Visit Diagnoses Diagnosis Type 2 diabetes mellitus with hyperglycemia, without long-term current use of insulin (CMS/HCC) documented in this encounter Care Teams Ehs Specialist Relationship Specialty Start Date End Date Carina Nolasco MD [address] [place] [phone] PCP - General Internal Medicine 04/18/24 documented as of this encounter
--- OUTSIDE RECORDS SUMMARY | 2024-05-26 07:38 | XMS_ITS | Encounter Summary ---
Author Organization [employer] [facility] Address [address] [place] [address] 7t [place] [address] Care Team Providers Care Manual Lathe Operator Name Role Phone Carina Nolasco MD Primary Care Provider + Reason for Visit * Reason Comments Med Refill Encounter Details Date Type Department Care Team (Late st Contact Info) Description 04/08/2024 Refill [facility] MED[facility] [address] [place] [phone] Becky Porter MD [address] [place] [address] [phone] Hyperlipidemia, unspecified hyperlipidemia type; Essential hypertension Social [...] Description 07/07/2024 11:15 AM EDT Office Visit [facility] [address] [place] [phone] Carina Nolasco MD [address] [place] [address] [phone] documented as of this encounter Visit Diagnoses Diagnosis Hyperlipidemia, unspecified hyperlipidemia type Essential hypertension Unspecified essential hypertension documented in this encounter Care Teams Manual Lathe Operator Relationship Specialty Start Date End Date Carina Nolasco MD [address] [place] [phone] PCP - General Internal Medicine 04/18/24 documented as of this encounter
--- OUTSIDE RECORDS SUMMARY | 2024-05-26 07:38 | XMS_ITS | Encounter Summary ---
Author Organization [employer] [facility] Address [address] [place] [address] [place] [address] Care Team Providers Care Drum Cleaner Name Role Phone Carina Nolasco MD Primary Care Provider + Reason for Visit * Reason Comments Med Refill Encounter Details Date Type Department Care Team (Late st Contact Info) Description 01/29/2024 Refill [facility] [address] [place] [address] Tanvi Grant FNP [address] [place] [phone] Essential hypertension Social History Tobacco Use [...] Description 07/07/2024 11:15 AM EDT Office Visit [facility] [address] [place] [address] Carina Nolasco MD [address] [place] [phone] documented as of this encounter Visit Diagnoses Diagnosis Essential hypertension Unspecified essential hypertension documented in this encounter Care Teams Drum Cleaner Relationship Specialty Start Date End Date Carina Nolasco MD [address] [place] [phone] PCP - General Internal Medicine 04/18/24 documented as of this encounter
--- OUTSIDE RECORDS SUMMARY | 2024-05-26 07:38 | XMS_ITS | Encounter Summary ---
Author Organization [employer] [facility] Address [address] [place] [address] 7t [place] [address] Care Team Providers Care Metal Tank Builder Name Role Phone Carina Nolasco MD Primary Care Provider + Reason for Visit * Reason Comments Med Refill Encounter Details Date Type Department Care Team (Late st Contact Info) Description 03/26/2024 Refill [facility] MED[facility]INE [address] [place] [phone] Becky Porter MD [address] [place] [phone] Essential hypertension Social History Tobacco Use Types [...] Description 07/07/2024 11:15 AM EDT Office Visit [facility] [address] [place] [phone] Carina Nolasco MD [address] [place] [address] [phone] documented as of this encounter Visit Diagnoses Diagnosis Essential hypertension Unspecified essential hypertension documented in this encounter Care Teams Metal Tank Builder Relationship Specialty Start Date End Date Carina Nolasco MD [address] [place] [phone] PCP - General Internal Medicine 04/18/24 documented as of this encounter
--- OUTSIDE RECORDS SUMMARY | 2024-05-26 07:38 | XMS_ITS | Encounter Summary ---
Author Organization [employer] Address [address] [place] [address] 7 [place] [address] Care Team Providers Care Records Management Director Name Role Phone Carina Nolasco MD Primary Care Provider + Reason for Visit * Reason Comments Med Refill Encounter Details Date Type Department Care Team (Late st Contact Info) Description 12/27/2023 Refill [facility] OB-Surface Water Technician [address] [place] [phone] Aline Dash MD Social History [...] Med Refill Request reviewed by Med Refill Records Management Director, Devorah Peters RN. Last Visit: 04/2023 w PCP 06/2023 w DM Nurse Med Refill is acceptable at this time. Will forward to [facility] Pharmacy will not send labs for Provider Review *11/30/2023* will Task Scheduling to schedule Next visit RX Pended please review and update quantity and refill as needed Please reach out to Team staff as needed Ty documented in this encounter Plan of Treatment Upcoming Encounters Date Type Department Care Team (Late st Contact Info) Description 07/07/2024 11:15 AM EDT Office Visit [facility] MED[facility]INE [address] [place] [phone] Carina Nolasco MD [address] [place] [phone] documented as of this encounter Visit Diagnoses Not on filedocumented in this encounter Care Teams Records Management Director Relationship Specialty Start Date End Date Carina Nolasco MD [address] [place] [phone] PCP - General Internal Medicine 04/18/24 documented as of this encounter
--- OUTSIDE RECORDS SUMMARY | 2024-05-26 07:38 | XMS_ITS | Encounter Summary ---
Author Organization [employer] [facility] Address [address] [place] [address] [place] [address] Care Team Providers Care Clerk Operator Name Role Phone Carina Nolasco MD Primary Care Provider + Reason for Visit * Reason Comments Med Refill Encounter Details Date Type Department Care Team (Late st Contact Info) Description 01/02/2024 Refill [facility]INE [address] [place] [address] [phone] Tanvi Grant FNP [address] [place] [phone] Type 2 diabetes mellitus with hyperglycemia, [...] Description 07/07/2024 11:15 AM EDT Office Visit [facility] MED[facility]INE [address] [place] [address] [phone] Carina Nolasco MD [address] [place] [address] [phone] documented as of this encounter Visit Diagnoses Diagnosis Type 2 diabetes mellitus with hyperglycemia, without long-term current use of insulin (CMS/HCC) documented in this encounter Care Teams Clerk Operator Relationship Specialty Start Date End Date Carina Nolasco MD [address] [place] [address] PCP - General Internal Medicine 04/18/24 documented as of this encounter
--- OUTSIDE RECORDS SUMMARY | 2024-05-26 07:38 | XMS_ITS | Encounter Summary ---
Author Organization [employer] Address [address] [place] [address] Care Team Providers Care Consulting Technical Manager Name Role Phone Carina Nolasco MD Primary Care Provider + Reason for Visit * Reason Comments Med Refill Encounter Details Date Type Department Care Team (Late st Contact Info) Description 02/21/2024 Refill [facility] MEDICINE [address] [place] [address] Tanvi Grant FNP [address] [place] [phone] Acquired hypothyroidism Social History Tobacco Use [...] Description 07/07/2024 11:15 AM EDT Office Visit [facility] MEDICINE [address] [place] [phone] Carina Nolasco MD [address] [place] [address] [phone] documented as of this encounter Visit Diagnoses Diagnosis Acquired hypothyroidism Unspecified hypothyroidism documented in this encounter Care Teams Consulting Technical Manager Relationship Specialty Start Date End Date Carina Nolasco MD [address] [place] [phone] PCP - General Internal Medicine 04/18/24 documented as of this encounter
--- OUTSIDE RECORDS SUMMARY | 2024-05-26 07:38 | XMS_ITS | Encounter Summary ---
Author Organization [employer] [facility] Address [address] [place] [address] 7 [place] [address] Care Team Providers Care Coupon And Bond Collection Clerk Name Role Phone Carina Nolasco MD Primary Care Provider + Reason for Visit * Reason Comments Med Refill Encounter Details Date Type Department Care Team (Late st Contact Info) Description 03/28/2024 Refill [facility] [address] [place] [phone] Becky Porter MD [address] [place] [phone] Vitamin D deficiency Social History Tobacco Use [...] 07/07/2024 11:15 AM EDT Office Visit [facility] [address] [place] [phone] Carina Nolasco MD [address] [place] [address] [phone] documented as of this encounter Visit Diagnoses Diagnosis Vitamin D deficiency documented in this encounter Care Teams Coupon And Bond Collection Clerk Relationship Specialty Start Date End Date Carina Nolasco MD [address] [place] [phone] PCP - General Internal Medicine 04/18/24 documented as of this encounter
== END 2024-05-26 07:36 | disposition home or self-care (01) ==
LOC: HO.US 07:35
PROVIDERS: PCP Internal Medicine; Visit Provider Internal Medicine
DX: I10 Essential (primary) hypertension (principal); I16.0 Hypertensive urgency; R94.5 Abnormal results of liver function studies
CPT/HCPCS: 76775; 93975

== ENCOUNTER → 2024-05-26 07:40 | Outpatient (BNV) | payer MEDICAID, SELFPAY | PROVIDERS: PCP Internal Medicine; Visit Provider Radiology Diagnostic Radiology | DX: I10 Essential (primary) hypertension (principal) | CPT/HCPCS: 76775; 93975 ==

== ENCOUNTER 2024-07-17 10:23 | Outpatient (AMB) | payer MEDICARE, MEDICAID, SELFPAY ==
--- NOTE | 2024-07-17 10:25 | A.OFFVIS_ITS ---
Vital Signs 07/17/24 10:34 Height 4 ft Weight 153 lb BMI 46.7 BP 142/88 H Blood Pressure Location Rt brachial Position Sitting Pulse 72 Intake Visit Reasons: Gallbladder problems Intake Note: Patient referred by pcp Dr. Nolasco for Calculus of Gallbladder with cholecystitis without obstruction. Patient c/o: RUQ pain. Renal US: 05-26-2024 Contact Lens Blocker Required: No Accompanied by: daughters Mayela and Khadijah Allergies No Known Allergies Allergy (Verified 07/17/24 10:30) Medication List - Last Reconciled 07/17/24 by Isaak Whittaker MD No Known Home Meds HPI HPI Gallbladder problems: Details: [age] year old female referred for gallstones. The patient used to live in [place] and had moved to the area. She was seen by a new primary care physician who was told about previous kidney stones. The patient therefore was sent for a kidney ultrasound last May,. There was an incidental finding of gallstones as well so she was referred to me The patient otherwise says that she has had no right upper quadrant pain. She denies any GI complaints. She is a diabetic and is on medications but they could not recall this at this time. [facility] Medical History (Updated 07/17/24 @ 10:51 by Isaak Whittaker MD) Gallstones Morbid obesity Kidney stones Hyperthyroidism Hypertension Diabetes type 2 Social History Alcohol intake: never Patient Tobacco Use Status: Never used Tobacco Review of Systems Const Denies chills and Denies fever(s) Card Denies chest pain, Denies dyspnea and Denies dyspnea on exertion Resp Denies cough, Denies dyspnea and Denies dyspnea on exertion GI Denies hematochezia and Denies change in bowel habits Denies hematuria Musc Denies back pain and Denies limited range of motion Neuro Denies focal weakness and Denies convulsions Psych Denies depression and Denies mood swings Physical Exam Const Other: Obese General: comfortable and no acute distress Orientation/consciousness: patient oriented x3 Neck Neck: Yes no lymphadenopathy Resp Auscultation: clear to auscultation bilaterally Cardio Rhythm: regular rhythm GI Palpation (GI): Soft to palpation, nontender and no guarding Neuro General: patient oriented x3 Assessment & Plan Assessment & Plan (1) Gallstones: Code(s): K80.20 - Calculus of gallbladder without cholecystitis without obstruction Category: Medical Plan: She had gallstones seen incidentally on renal ultrasound. She denies any symptoms. She denies any right upper quadrant pain or any GI complaints. In the absence of any symptoms, I told her that we may not need to proceed with cholecystectomy at this time. I did reviewed with the patient and her family the technique of laparoscopic cholecystectomy as well as possible open cholecystectomy. I explained the risks including but not limited to bleeding, infections injury to other organs including bowel, liver and the bile duct retained stones, bile leak, as well as the benefits and alternatives I explained to him that once she starts having right upper quadrant pain, then she may benefit from cholecystectomy. I therefore gave them my card and asked him to call for another follow up to be re-evaluated down the line when she develops symptoms. I also explained to her the benefits of weight loss with regards to her diabetes, and cancer risks. Coding Level of Care Code New Pt Level 3 (63767) Diagnoses Gallstones K80.20
[2024-07-17 10:34] VITALS: BP 142/88; PULSE 72; BMI 46.7
--- OUTSIDE RECORDS SUMMARY | 2024-07-17 11:35 | XMS_ITS | Encounter Summary ---
Author Organization [employer] Address [address] [place] [address] Care Team Providers Care Appeals Nurse Name Role Phone Carina Nolasco MD Primary Care Provider + Reason for Visit * Reason Comments Med Refill Encounter Details Date Type Department Care Team (Late st Contact Info) Description 08/29/2023 Refill [facility] OB-Photoradio Operator [address] [place] [phone] Tanvi Grant FNP [address] [place] [phone] Social History Tobacco Use Types Packs/Day Years [...] Care Team (Late st Contact Info) Description 08/07/2024 10:00 AM EDT Medication Management [facility] MEDICINE [address] [place], [place] [phone] Topher Joyner, PharmD [address] [place] [address] documented as of this encounter Visit Diagnoses Not on filedocumented in this encounter Care Teams Appeals Nurse Relationship Specialty Start Date End Date Carina Nolasco MD [address] [place] [address] PCP - General Internal Medicine 04/18/24 documented as of this encounter
== END 2024-07-17 10:47 | disposition home or self-care (01) ==
LOC: HO.HGS 10:23
PROVIDERS: PCP Internal Medicine; Visit Provider Surgery
DX: K80.20 Calculus of gallbladder without cholecystitis without obstruction (principal)
CPT/HCPCS: 99203

== ENCOUNTER → 2024-07-17 10:23 | Outpatient (BNVA) | payer MEDICARE, MEDICAID, SELFPAY | PROVIDERS: PCP Internal Medicine; Visit Provider Surgery | DX: K80.20 Calculus of gallbladder without cholecystitis without obstruction (principal) | CPT/HCPCS: 99202 ==

== ENCOUNTER 2024-08-08 09:49 | Outpatient (REF) | payer MEDICARE, MEDICAID, SELFPAY ==
--- OUTSIDE RECORDS SUMMARY | 2024-08-08 10:44 | XMS_ITS | Encounter Summary ---
Author Organization [employer] Address [address] [place] [address] [place] [address] Care Team Providers Care Soap Maker Name Role Phone Carina Nolasco MD Primary Care Provider + Reason for Visit * Reason Comments Med Refill Encounter Details Date Type Department Care Team (Late st Contact Info) Description 08/29/[address] [facility] OB-Pharmacy Intake Coordinator [address] [place] [phone] Tanvi Grant FNP [address] [place] [phone] Social History Tobacco Use Types Packs/Day [...] Care Team (Late st Contact Info) Description 08/23/2024 2:30 PM EDT Telemedicine [facility] MEDICINE [address] [place], [place] [phone] Topher Joyner, PharmD [address] [place] [address] documented as of this encounter Visit Diagnoses Not on filedocumented in this encounter Care Teams Soap Maker Relationship Specialty Start Date End Date Carina Nolasco MD [address] [place] [address] PCP - General Internal Medicine 04/18/24 documented as of this encounter
== END 2024-08-08 09:50 | disposition home or self-care (01) ==
LOC: HO.MAMMO 09:49
PROVIDERS: PCP Internal Medicine; Visit Provider Internal Medicine
DX: Z12.31 Encounter for screening mammogram for malignant neoplasm of breast (principal)
CPT/HCPCS: 77063; 77067

== ENCOUNTER → 2024-08-08 10:00 | Outpatient (BNV) | payer MEDICARE, MEDICAID, SELFPAY | PROVIDERS: PCP Internal Medicine; Visit Provider Internal Medicine | DX: Z12.31 Encounter for screening mammogram for malignant neoplasm of breast (principal) | CPT/HCPCS: 77063; 77067 ==

== ENCOUNTER → 2024-08-16 14:42 | Outpatient (REF) | payer MEDICARE, MEDICAID, SELFPAY ==
--- NOTE | 2024-08-16 14:46 | CA_ITS ---
Transthoracic Echocardiogram Patient (Last, First, Middle): Kathryn Goins, Gender: Female Date of : 1960 Age: 63 Procedure Date: 08/16/2024 Procedure Type: Transthoracic Echocardiogram Location: OP Height: 144.78 cm Weight: 68.95 kg BSA: 1.60 m2 Heart Rate: bpm BP: 180 / 90 mmHg Electrical Intern: TO Referring MD: Carina Nolasco MD Heat Treat Inspector: Murray Archuleta MD Symptoms: I10 HTN I51.89 GRADE 1 DIASTOLIC DYSFUNCTION HYPERTENSION Study Quality: Fair ECG Rhythm: Sinus Conclusions: - 1. Normal LV ejection fraction of 65-70% with grade 1 diastolic dysfunction with mild asymmetric septal hypertrophy off the basal septum without any obstructive physiology 2. Mild calcific aortic and mitral valve changes noted with normal cardiac valvular Dopplers 3. Mildly dilated ascending aorta 3.7 cm 4. Trivial pericardial effusion Findings Procedure Information The patient declines contrast. Left Ventricle Normal left ventricular size, thickness, and systolic function. The visually estimated ejection fraction is between 65-70%. Spectral Doppler is indicative of an impaired relaxation filling pattern. E/E prime ratio is <8, consistent with normal filling pressures. There is mild septal asymmetric hypertrophy. Right Ventricle Normal right ventricular cavity size and systolic function. Atria Both atria are normal in size. Interatrial shunt cannot be excluded. Aortic Valve The aortic valve structure and function is likely normal. There is mild calcification of the aortic valve. There is no aortic valve stenosis. There is no aortic valve regurgitation. Mitral Valve There is mild anterior and posterior mitral leaflet thickening. There is mild mitral annular calcification. There is trace mitral valve regurgitation. There is no mitral valve stenosis. Pulmonic Valve The pulmonic valve is likely normal. Tricuspid Valve Normal tricuspid valve structure. Normal right atrial pressure. Great Vessels The pulmonary artery was not well visualized. There is mild dilatation of the ascending aorta measuring 3.70 cm. Venous The inferior vena cava is normal in size. Pericardium/Pleural There is a trivial loculated pericardial effusion overlying the left ventricle. Prior Study Comparison No prior study available for comparison. Measurements 2D Linear Measurements IVSd: 1.33 0.6-0.9/0.6-1.0 cm LVIDd: 3.42 3.9-5.3/4.2-5.9 cm LVIDd Index: 2.14 2.4-3.2/2.2-3.1 cm/m2 LVIDs: 2.06 2.0-3.6 cm LVPWd: 0.91 0.7-1.1 cm LA Diam: 2.40 2.7-3.8/3.0-4.0 cm LAIDs Index: 1.50 1.5-2.3 cm/m2 LV Mass: 147.07 67-162/88-224 g LV Mass Index: 91.92 43-95/49-115 g/m2 LVOT Diam: 1.80 3.0+(-)1.3 cm 2D Systolic Function EF 4C: 66.30 >55% Mitral Valve MV Pk E: 0.46 MV PK A: 0.82 MV Decel Time: 136.00 E/A: 0.60 E'Lateral: 4.79 E'Medial: 5.77 E/E' Med: 8.00 E/E' Lat: 9.70 PHT: 40.00 MVA PHT: 5.50 Decel Solano: 3.40 Aortic Valve AoV Pk Cruzito: 1.72 AoV Mn Cruzito: 1.12 AoV VTI: 0.24 AoV Pk Grad: 12.00 Aov Mn Grad: 6.00 MARIA D Cont.VTI: 2.13 LVOT LVOT Pk Cruzito: 1.17 LVOT Mn Cruzito: 0.81 LVOT VTI: 0.20 LVOT Pk Grad: 5.00 LVOT Mn Grad: 3.00 LVOT Diam: 1.80 LVOT Area: 2.54 Diastolic Function MV Pk E: 0.46 MV Pk A: 0.82 E/A: 0.60 E'Medial: 5.77 E/E' Med: 8.00 E' Laterial: 4.79 E/E' Lat: 9.70 Right Ventricle TAPSE (mm): 16.50 TVS' Cruzito: 13.30 Tricuspid Valve RA Press: 3.00 Great Vessels Aorta Sinus of Valsalva: 3.02 2.0-3.5 cm Ao Asc: 3.70 2.1-3.4 cm Updated in Other Vendor System with Status of Final Murray Archuleta MD electronically signed on 08/17/2024 12:14:21 PM with status of Final
--- OUTSIDE RECORDS SUMMARY | 2024-08-16 15:13 | XMS_ITS | Encounter Summary ---
Author Organization [employer] Address [address] [place] [address] [place] [address] Care Team Providers Care Real Estate Sales Agent Name Role Phone Carina Nolasco MD Primary Care Provider + Reason for Visit * Reason Comments Med Refill Encounter Details Date Type Department Care Team (Late st Contact Info) Description 08/29/2023 Refill [facility] OB-Social Work Instructor [address] [place] [phone] Tanvi Grant FNP [address] [place] [phone] Social History Tobacco Use Types Packs/Day [...] Info) Description 08/23/2024 2:30 PM EDT Telemedicine [facility] MEDICINE [address] [place], [place] [phone] Topher Joyner, PharmD [address] [place] [address] documented as of this encounter Visit Diagnoses Not on filedocumented in this encounter Care Teams Real Estate Sales Agent Relationship Specialty Start Date End Date Carina Nolasco MD [address] [place] [address] PCP - General Internal Medicine 04/18/24 documented as of this encounter
== END ==
LOC: HO.CARD 14:42
PROVIDERS: PCP Internal Medicine; Visit Provider Internal Medicine
DX: I51.89 Other ill-defined heart diseases (principal)
CPT/HCPCS: 93306

== ENCOUNTER → 2024-08-16 14:46 | Outpatient (BNV) | payer MEDICARE, MEDICAID, SELFPAY | PROVIDERS: PCP Internal Medicine; Visit Provider Internal Medicine Cardiovascular Disease | DX: I31.39 Other pericardial effusion (noninflammatory) (principal) | CPT/HCPCS: 93306 ==

== ENCOUNTER 2024-11-03 09:05 | Outpatient (REF) | payer MEDICARE, MEDICAID, SELFPAY ==
--- OUTSIDE RECORDS SUMMARY | 2024-11-02 09:00 | XMS_ITS | Encounter Summary ---
Author Organization [employer] Address [address] [facility] [address] [place] [address] Care Team Providers Care Instructional Writer Name Role Phone Carina Nolasco MD Primary Care Provider + Topher Joyner PharmD Unavailable [phone] Reason for Referral * Consultation (Routine) - Authorized Specialty Diagnoses / Procedures Referred By Ninoska t Referred To Contact Ophthalmology Diagnoses Essential hypertension Type 2 diabetes mellitus with hyperglycemia, without long-term current use of insulin ([facility]) Carina Nolasco MD [address] [place], [place] Phone: tel: fax: [facility] [place] [address] [place] [address] Phone: tel:[phone] fax: Referral ID Status Reason Start Date Expiration Date Visits Requested Visits Authorized [id number] Authorized Specialty Services Required 11/02/2024 11/02/2025 1 1 * Consultation (Routine) - Authorized Specialty Diagnoses / Procedures Referred By Contac t Referred To Contact Cardiology Diagnoses Ascending aorta dilatation ([facility]) Carina Nolasco MD [address] [place], [place] Phone: tel: fax: [facility] [address] [place] [address] Phone: tel: fax: Referral ID Status Reason Start Date Expiration Date Visits Requested Visits Authorized [id number] Authorized Specialty Services Required 11/02/2024 11/02/2025 1 1 Encounter Details Date Type Department Care Team (Late st Contact Info) Description 11/02/2024 9:00 AM EDT Telemedicine [facility] [address] [place] [address] Carina Nolasco MD [address] [place] [address] Essential hypertension (Primary Dx); Type 2 diabetes [...] without long-term current use of insulin (CMS/HCC) Ascending aorta dilatation (CMS/HCC) Thoracic aneurysm without mention of rupture Screening for colon cancer Special screening for malignant neoplasms, colon documented in this encounter Additional Health Concerns Assessment Noted Time PHQ-9 Depression Total Score: 1 11/03/19 9:06 AM EDT documented as of this encounter Care Teams Instructional Writer Relationship Specialty Start Date End Date Carina Nolasco MD [address] [place] [address] PCP - General Internal Medicine 04/18/24 Topher Joyner, VitalyD [address] [place] [address] Pharmacist Pharmacy 08/23/24 documented as of this encounter
--- OUTSIDE RECORDS SUMMARY | 2024-11-03 09:46 | XMS_ITS | Encounter Summary ---
Author Organization [email or web address] Address [address] [place] [address] [address] [place] [address] Care Team Providers Care Channel Layer Name Role Phone Carina Nolasco MD Primary Care Provider + Topher Joyner PharmD Unavailable [phone] Reason for Visit * Reason Comments Med Refill Encounter Details Date Type Department Care Team (Late st Contact Info) Description 01/29/2024 Refill [facility] [address] [place], [place] [phone] Tanvi Grant FNP [address] [place] [address] [phone] Essential hypertension Social History Tobacco Use Types Packs/Day Years Used Date Smoking Tobacco: Never Smokeless Tobacco: Never Comments Unknown Sex and Gender Information Value Date Recorded Sex Assigned at Female 08/09/2023 8:02 AM EDT Legal Sex Female 6:55 PM EDT Gender Identity Female 05/21/2023 6:55 PM EDT Sexual Orientation Straight 05/21/2023 6: 55 PM EDT documented as of this encounter Plan of Treatment Not on file documented as of this encounter Visit Diagnoses Diagnosis Essential hypertension Unspecified essential hypertension documented in this encounter Care Teams Channel Layer Relationship Specialty Start Date End Date Carina Nolasco MD [address] [place], [place] PCP - General Internal Medicine 04/18/24 Topher Joyner, PharmD [address] [place], [place] [phone] Pharmacist Pharmacy 08/23/24 documented as of this encounter
--- OUTSIDE RECORDS SUMMARY | 2024-11-03 09:46 | XMS_ITS | Encounter Summary ---
Author Organization [employer] Address [address] [place] [address] [address] [place] [address] Care Team Providers Care Recordings Librarian Name Role Phone Carina Nolasco MD Primary Care Provider + Topher Joyner PharmD Unavailable [phone] Reason for Visit * Reason Comments Med Refill Encounter Details Date Type Department Care Team (Late st Contact Info) Description 10/29/2024 Refill [facility] [address] [place], [place] [phone] Carina Nolasco MD [address] [place], [place] Vitamin D deficiency Social History Tobacco Use [...] deficiency documented in this encounter Care Teams Recordings Librarian Relationship Specialty Start Date End Date Carina Nolasco MD [address] [place] [address] [phone] PCP - General Internal Medicine 04/18/24 Topher Joyner, PharmD [address] [place] [address] [phone] Pharmacist Pharmacy 08/23/24 documented as of this encounter
--- OUTSIDE RECORDS SUMMARY | 2024-11-03 09:46 | XMS_ITS | Encounter Summary ---
Author Organization [employer] Address [address] [facility] [address] [place] [address] Care Team Providers Care Registered Phlebotomist Part Time Name Role Phone Carina Nolasco MD Primary Care Provider + Topher Joyner PharmD Unavailable [phone] Reason for Visit * Reason Comments Care Coordination CHW outreach for SDO H housing search-referral completed Encounter Details Date Type Department Care Team (Latest Contact Info) Description 11/02/2024 Patient Outreach [facility] [address] [place], [place] [phone] Carina Nolasco MD [address] [place] [address] Care Coordination (CHW outreach for SDOH housing search-referral completed ) Social History Tobacco Use Types Packs/Day Years [...] Author Not at all 11/02/2024 9:06 AM JUANJOSET Ani Castillo MA * Trouble concentrating on [...] as of this encounter Progress Notes * Spencer Becker - 11/02/2024 10:14 AM EDT CHW Spencer Becker, placed outbound call to patient for assistance with SDOH as a referral was received by the provider. Patient's name and were confirmed. Patient screened positive for the following SDOH housing insecurities. Patient states is staying with her friend but is searching for her own apartment. CHW referral patient to the list of application mail out to her address on file. Patient verbalizes understanding, and able to agree with plan to follow up herself. Patient educated on extended clinic hours on Mondays through Wednesdays, and Walk-In Urgent Care Located in [facility] of [facility]. Patient provided with after-hours line for [facility], , which offer night time triage service and option to transfer to final application reviewer provider if needed. documented in this encounter Plan of Treatment Not on file documented as of this encounter Visit Diagnoses Not on filedocumented in this encounter Additional Health Concerns Assessment Noted Time PHQ-9 Depression Total Score: 1 11/03/19 9:06 AM EDT documented as of this encounter Care Teams Registered Phlebotomist Part Time Relationship Specialty Start Date End Date Carina Nolasco MD [address] [place] [address] PCP - General Internal Medicine 04/18/24 Topher Joyner, Chivo [address] [place] [address] Pharmacist Pharmacy 08/23/24 documented as of this encounter
--- OUTSIDE RECORDS SUMMARY | 2024-11-03 09:46 | XMS_ITS | Encounter Summary ---
Author Organization [employer] Address [address] [facility] 7t [place] [address] Care Team Providers Care Food Services Coordinator Name Role Phone Carina Nolasco MD Primary Care Provider + Topher Joyner PharmD Unavailable [phone] Encounter Details Date Type Department Care Team (Late st Contact Info) Description 11/30/2023 Abstract [facility] [address] [place], [place] [phone] Becky Porter MD [address] [place], [place] [phone] Hypertension, unspecified type Social History Tobacco Use [...] 88 11/30/2023 9:28 AM EDT Temperature 37.1 C (98.7 F) 11/30/2023 9:28 AM EDT Respiratory Rate - - Oxygen Saturation 96% 11/30/2023 9:28 AM EDT room air Inhaled Oxygen Concentration - - Weight - - Height - - Body Mass Index - - documented in this encounter Plan of Treatment Not on file documented as of this encounter Visit Diagnoses Diagnosis Hypertension, unspecified type documented in this encounter Care Teams Food Services Coordinator Relationship Specialty Start Date End Date Carina Nolasco MD [address] [place], [place] [phone] PCP - General Internal Medicine 04/18/24 Topher Joyner PharmD [address] [place] [address] Pharmacist Pharmacy 08/23/24 documented as of this encounter
--- OUTSIDE RECORDS SUMMARY | 2024-11-03 09:46 | XMS_ITS | Encounter Summary ---
Author Organization [employer] Address [address] [place] [address] [place] [address] Care Team Providers Care Dietary Clerk Name Role Phone Carina Nolasco MD Primary Care Provider + Topher Joyner PharmD Unavailable [phone] Reason for Visit * Reason Comments Med Refill Encounter Details Date Type Department Care Team (Late st Contact Info) Description 08/18/2023 Refill [facility] OB-Wheel Cleaner [address] [place] [phone] Tanvi Grant FNP [address] [place] [phone] Social History Tobacco Use Types Packs/Day [...] on filedocumented in this encounter Care Teams Dietary Clerk Relationship Specialty Start Date End Date Carina Nolasco MD [address] [place] [address] PCP - General Internal Medicine 04/18/24 Topher Joyner, VitalyD [address] [place] [phone] Pharmacist Pharmacy 08/23/24 documented as of this encounter
--- OUTSIDE RECORDS SUMMARY | 2024-11-03 09:46 | XMS_ITS | Encounter Summary ---
Author Organization [employer] Address [address] [facility] 7t [place] [address] Care Team Providers Care Perinatal Tech Name Role Phone Carina Nolasco MD Primary Care Provider + Topher Joyner PharmD Unavailable [phone] Reason for Visit * Reason Onset Date Comments Chart prep 11/01/2024 Encounter Details Date Type Department Care Team (Late st Contact Info) Description 11/01/2024 Telephone [facility] [address] [place], [place] [phone] Carina Nolasco MD [address] [place], [place] [phone] Chart prep Social History Tobacco Use Types Packs/Day Years Used Date Smoking Tobacco: Never Smokeless Tobacco: Never Depression Answer Date Recorded Patient Health Questionnaire-9 Score 1 11/02/2024 Patient Health Questionnaire-9 Score 1 11/02/2024 Last PHQ-9: Questionnaire Data Not on file 0 11/02/2024 Housing Stability Answer Date Recorded What is your housing situation today? I have juan m torres 11/02/[address] you li [...] encounter Miscellaneous Notes * Telephone Encounter - Ani Castillo [place] - 11/01/2024 4:16 PM EDT Chart Prep Labs: not done active from 08/07/24 Images: done Referrals: complete Vaccines due: Covid, Flu, Hep B, Hep A, RSV, and Zoster Screenings: colonoscopy, eye exam Overdue care gaps: A1c, Glucose, SBIRT, and PHQ-9 documented in this encounter Plan of Treatment Not on file documented as of this encounter Visit Diagnoses Not on filedocumented in this encounter Care Teams Perinatal Tech Relationship Specialty Start Date End Date Carina Nolasco MD [address] [place] [address] PCP - General Internal Medicine 04/18/24 Topher Joyner, Chivo [address] [place] [address] Pharmacist Pharmacy 08/23/24 documented as of this encounter
--- OUTSIDE RECORDS SUMMARY | 2024-11-03 09:46 | XMS_ITS | Encounter Summary ---
Author Organization [employer] Address [address] [place] [address] 7 [place] [address] Care Team Providers Care Tent Finisher Name Role Phone Carina Nolasco MD Primary Care Provider + Topher Joyner PharmD Unavailable [phone] Reason for Visit * Reason Comments Med Refill Encounter Details Date Type Department Care Team (Late st Contact Info) Description 12/27/2023 Refill [facility] OB-Tourist Agent [address] [place] [phone] Aline Dash MD Social History [...] Med Refill Request reviewed by Med Refill Tent Finisher, Devorah Peters RN. Last Visit: 04/2023 w PCP 06/2023 w DM Nurse Med Refill is acceptable at this time. Will forward to [facility] Pharmacy will not send labs for Provider Review *11/30/2023* will Task Scheduling to schedule Next visit RX Pended please review and update quantity and refill as needed Please reach out to Team staff as needed Ty documented in this encounter Plan of Treatment Not on file documented as of this encounter Visit Diagnoses Not on filedocumented in this encounter Care Teams Tent Finisher Relationship Specialty Start Date End Date Carina Nolasco MD [address] [place] [address] PCP - General Internal Medicine 04/18/24 Topher Joyner, Chivo [address] [place] [phone] Pharmacist Pharmacy 08/23/24 documented as of this encounter
--- OUTSIDE RECORDS SUMMARY | 2024-11-03 09:46 | XMS_ITS | Encounter Summary ---
Author Organization [employer] Address [address] [place] [address] 7 [place] [address] Care Team Providers Care Illuminator Name Role Phone Carina Nolasco MD Primary Care Provider + Topher Joyner PharmD Unavailable [phone] Reason for Visit * Reason Comments Med Refill Encounter Details Date Type Department Care Team (Late st Contact Info) Description 09/17/2023 Refill [facility] OB-Rock Wool Insulator [address] [place] [phone] Aline Dash MD Social History [...] on filedocumented in this encounter Care Teams Illuminator Relationship Specialty Start Date End Date Carina Nolasco MD [address] [place] [phone] PCP - General Internal Medicine 04/18/24 Topher Joyner, PharmD [address] [place] [address] Pharmacist Pharmacy 08/23/24 documented as of this encounter
--- OUTSIDE RECORDS SUMMARY | 2024-11-03 09:46 | XMS_ITS | Encounter Summary ---
Author Organization [employer] Address [address] [place] [address] 7 [place] [address] Care Team Providers Care Tractor Crane Engineer Name Role Phone Carina Nolasco MD Primary Care Provider + Topher Joyner PharmD Unavailable [phone] Reason for Visit * Reason Comments Med Refill Encounter Details Date Type Department Care Team (Late st Contact Info) Description 02/21/2024 Refill [facility] [address] [place], [place] [phone] Tanvi Grant FNP [address] [place] [phone] Acquired hypothyroidism Social History Tobacco Use Types [...] hypothyroidism documented in this encounter Care Teams Tractor Crane Engineer Relationship Specialty Start Date End Date Carina Nolasco MD [address] [place], [place] [phone] PCP - General Internal Medicine 04/18/24 Topher Joyner, PharmD [address] [place], [place] [phone] Pharmacist Pharmacy 08/23/24 documented as of this encounter
--- OUTSIDE RECORDS SUMMARY | 2024-11-03 09:46 | XMS_ITS | Encounter Summary ---
Author Organization [facility] Address [address] [place] [address] Phone Care Team Providers Care Measurement Advisor Name Role Phone Carina Nolasco MD Primary Care Provider [phone] Encounter Details Date Type Department Care Team (Late Contact Info) Description 10/11/2024 Documentation Only [facility] [address] [place] [address] July Sandhu [address] [place] [address] Social History Tobacco Use Types Packs/Day Years Used Date Smoking Tobacco: Never Assessed Comments Unknown Sex and Gender Information Value Date Recorded Sex Assigned at Not on file Legal Sex Female 3:33 PM EDT Gender Identity Not on file Sexual Orientation Not on file documented as of this encounter Plan of Treatment Upcoming Encounters Date Type Department Care Team (Late st Contact Info) Description 01/01/2025 3:00 PM EST Office Visit [facility] [address] [place] [address] Luis Daly MD [address] [place] [address] [place] [phone] documented as of this encounter Visit Diagnoses Not on filedocumented in this encounter Care Teams Measurement Advisor Relationship Specialty Start Date End Date Carina Nolasco MD [address] [place] [phone] PCP - General Internal Medicine 10/11/24 documented as of this encounter
--- OUTSIDE RECORDS SUMMARY | 2024-11-03 09:46 | XMS_ITS | Encounter Summary ---
Author Organization [employer] Address [address] [place] [address] 7t [place] [address] Care Team Providers Care Special Loan Officer Name Role Phone Carina Nolasco MD Primary Care Provider + Topher Joyner PharmD Unavailable [phone] Reason for Visit * Reason Comments Med Refill Encounter Details Date Type Department Care Team (Late st Contact Info) Description 04/08/2024 Refill [facility] [address] [place], [place] [phone] Becky Porter MD [address] [place], [place] [phone] Hyperlipidemia, unspecified hyperlipidemia type; Essential hypertension Social [...] hypertension documented in this encounter Care Teams Special Loan Officer Relationship Specialty Start Date End Date Carina Nolasco MD [address] [place] [address] [phone] PCP - General Internal Medicine 04/18/24 Topher Joyner, PharmD [address] [place] [phone] Pharmacist Pharmacy 08/23/24 documented as of this encounter
--- OUTSIDE RECORDS SUMMARY | 2024-11-03 09:46 | XMS_ITS | Encounter Summary ---
Author Organization [employer] Address [address] [place] [address] 7t [place] [address] Care Team Providers Care Typewriter Repairer Name Role Phone Carina Nolasco MD Primary Care Provider + Topher Joyner PharmD Unavailable [phone] Reason for Visit * Reason Comments Med Refill Encounter Details Date Type Department Care Team (Late st Contact Info) Description 03/26/2024 Refill [facility] [address] [place], [place] [phone] Becky Porter MD [address] [place] [address] [phone] Essential hypertension Social History Tobacco Use Types [...] hypertension documented in this encounter Care Teams Typewriter Repairer Relationship Specialty Start Date End Date Carina Nolasco MD [address] [place] [phone] PCP - General Internal Medicine 04/18/24 Topher Joyner, PharmD [address] [place] [phone] Pharmacist Pharmacy 08/23/24 documented as of this encounter
--- OUTSIDE RECORDS SUMMARY | 2024-11-03 09:46 | XMS_ITS | Clinical Summary ---
Author Organization [employer] Address [address] [facility] 7[address] [place] [address] Care Team Providers Care Scale Model Maker Name Role Phone Carina Nolasco MD Primary Care Provider + Topher Joyner PharmD Unavailable [phone] Allergies No known active allergies Medications FREESTYLE LITE test stripIndications: Type 2 diabetes mellitus with hyperglycemia, without long-term current use of insulin ([facility]) TEST BLOOD SUGAR ONCE A DAY 100 strip 11 08/05/19 25 Active amLODIPine (Norvasc) 10 MG tabletIndications :Essential hypertension Take 1 tablet (10 mg) by mouth Once per day. 90 tablet 3 08/08/19 25 Active metoprolol succinate XL (Toprol-XL) 100 MG 24 hr tabletIndications :Essential hypertension Take 1 tablet (100 mg) by mouth Once per day. 90 tablet 1 08/08/19 25 Active FreeStyle lancetsIndication s:Type 2 diabetes mellitus with hyperglycemia, without long-term current use of insulin ([facility]) 1 each by Other route Once per day. 100 each 3 08/08/19 25 Active empagliflozin-met FORMIN ER (Synjardy XR) 12.5-1000 MG 24 hr tabletIndications :Type 2 diabetes mellitus with hyperglycemia, without long-term current use of insulin ([facility]) Take 1 tablet by mouth with breakfast and with evening meal. 60 tablet 11 08/24/19 25 Active polyvinyl alcohol (Liquifilm Tears) 1.4 % ophthalmic solution INSTILL 2 DROPS INTO AFFECTED EYE(S) IF NEEDED IN THE MORNING AT NOON,AND AT BEDTIME FOR DRY EYE 15 mL 09/01/19 25 Active Acetaminophen Extra Strength 500 MG tablet TAKE 1 TABLET BY MOUTH EVERY 6 HOURS IF NEEDED FOR MILD PAIN. 120 tablet 10/07/19 25 Active atorvastatin (Lipitor) 40 MG tabletIndications :Hyperlipidemia, unspecified hyperlipidemia type TAKE 1 TABLET BY MOUTH EVERY DAY 90 tablet 1 10/13/19 25 Active spironolactone (Aldactone) 50 MG tabletIndications :Essential hypertension TAKE 1 TABLET BY MOUTH EVERY DAY 90 tablet 10/13/19 25 Active levothyroxine (Synthroid, Levoxyl) 200 MCG tabletIndications :Acquired hypothyroidism TAKE 1 TABLET BY MOUTH EVERY DAY 90 tablet 1 10/13/19 25 Active gabapentin (Neurontin) 300 MG capsuleIndication s:Sciatica, unspecified laterality TAKE 1 CAPSULE BY MOUTH TWICE A DAY 180 capsule 11/01/19 25 Active cholecalciferol (D3-1000) 25 MCG (1000 UT) capsuleIndication s:Vitamin D deficiency TAKE 1 CAPSULE BY MOUTH EVERY DAY 90 capsule 11/01/19 25 Active olmesartan (Benicar) 20 MG tabletIndications :Essential hypertension Take 1 tablet (20 mg) by mouth Once per day. 30 tablet 6 11/03/19 25 Active pioglitazone (Actos) 45 MG tablet Take 1 tablet (45 mg) by mouth Once per day. 30 tablet 11/03/19 25 2025 Active gabapentin (Neurontin) 300 MG capsuleIndication s:Sciatica, unspecified laterality Take 1 capsule (300 mg) by mouth 2 times daily. 180 capsule 1 04/19/192024 Discontinued levothyroxine (Synthroid, Levoxyl) 200 MCG tabletIndications :Acquired hypothyroidism Take 1 tablet (200 mcg) by mouth Once per day. 90 tablet 1 04/19/19 25 2024 Discontinued atorvastatin (Lipitor) 40 MG tabletIndications :Hyperlipidemia, unspecified hyperlipidemia type Take 1 tablet (40 mg) by mouth Once per day. 90 tablet 1 04/19/19 25 2024 Discontinued spironolactone (Aldactone) 50 MG tabletIndications :Essential hypertension Take 1 tablet (50 mg) by mouth Once per day. 90 tablet 1 04/19/19 25 2024 Discontinued D3-1000 25 MCG (1000 UT) capsuleIndication s:Vitamin D deficiency TAKE 1 CAPSULE BY MOUTH EVERY DAY 90 capsule 1 05/03/192024 Discontinued(R eorder (will not trigger notification to Pharmacy)) olmesartan (Benicar) 20 MG tabletIndications :Essential hypertension Take 1 tablet (20 mg) by mouth Once per day. 30 tablet 2 08/08/19 25 2024 Discontinued(R eorder (will not trigger notification to Pharmacy)) Acetaminophen Extra Strength 500 MG tablet TAKE 1 TABLET BY MOUTH EVERY 6 HOURS IF NEEDED FOR MILD PAIN. 120 tablet 09/06/19 25 2024 Discontinued pioglitazone (Actos) 30 MG tablet TAKE 1 TABLET (30 MG) BY MOUTH ONCE PER DAY. 90 tablet 10/05/192024 Discontinued(D ose adjustment) Active Problems Problem Noted Date Diagnosed Date Congenital dilatation of aorta 11/02/2024 Ascending aorta dilatation 11/02/2024 Assessment & Plan (11/02/2024 9:54 AM EDT): Patient seems to be asymptomatic at this time, we discussed with her the importance of tight hypertension control. 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 Pt received tx with 3 doses of PCN. Assessment & Plan (07/07/2024 3:19 PM EDT): We called VANNA MEJÍA who reported pos Hx syphilis on 2007, with a titer 1:32. Pt received tx with 3 doses of PCN. Patient did not recall that, will address it with her at next appointment. She does not need additional treatment at this time. Sciatica 04/18/2024 Assessment & Plan (04/18/2024 1:31 [...] her follow up kevyn Assessment & Plan (11/02/2024 9:50 AM EDT): BP at home seems to be controlled, however she has usually showed up with significantly uncontrolled hypertension and echocardiogram shows changes consistent with long-term uncontrolled hypertension. I have discussed with patient the importance of hypertension control, and that I would like her to go for a 24- hour BP monitoring, which she declines again (she [...] BIW and prn CP/VANCE/PANDYA Non smoking patient. Assessment & Plan (07/07/2024 3:11 PM EDT): Uncontrolled, EKG within normal limits and patient asymptomatic. Rule out secondary hypertension, order polysomnography test, aim for tight control of diabetes, order echocardiogram due to history of diastolic dysfunction DC lisinopril and amlodipine and switch to Lotrel and follow-up with me in 3 to 4 weeks Increase metoprolol to 100 mg/day, patient to call back as needed if she does not tolerate medication Continue spironolactone 50 mg/day Counseled re low salt diet/increase moderate physical activity. Check home BP BIW and prn CP/VANCE/PANDYA Non smoking patient. Assessment & Plan (04/18/2024 1:23 PM EDT): [...] remember with whom. 2021 -> referred to [facility], never got appt 06/30 re-referred [...] remember with whom. 2021 -> referred to [facility], never got appt 06/30 re-referred for ophtho Assessment & Plan (11/02/2024 9:54 AM EDT): Uncontrolled, will increase Actos to 45 mg [...] to have dental prophylaxis every 6 months Assessment & Plan (07/07/2024 3:13 PM EDT): Uncontrolled, we discussed treatment option including injectables and additional p.o. medications. Patient does not want to start injectables at this time including insulin or GLP's. I had Actos 30 mg and follow-up with me in 3 to 4 weeks, may need to maximize to 45 mg if tolerated. I discussed with patient regarding side effects mainly GI and water retention, will watch closely regarding CHF symptoms. Continue metformin and Jardiance max dose Follow-up with me in 3 to 4 weeks Assessment & Plan (04/18/2024 1:22 PM EDT): [...] to ensure stable control Assessment & Plan (07/07/2024 3:14 PM EDT): TSH is at goal, continue levothyroxine 200 mg on empty stomach Follow-up TSH in 6 to 8 weeks Assessment & Plan (04/18/2024 1:28 PM EDT): [...] Chronic; Recent NextGen Note: By ECHO 06/2018 Assessment & Plan (07/07/2024 3:11 PM EDT): Order echocardiogram Will continue to try to control hypertension Fatty liver 11/30/2023 Assessment & Plan (07/07/2024 2:53 PM EDT): We discussed with patient within importance of weight reduction, tight control of diabetes and lifestyle modifications. Discussed about avoiding any type of alcohol Follow-up LFTs in 6 to 12 months if continues to be elevated, will refer to GI Abnormal mammogram 11/30/2023 Overview (11/30/2023): Last Addressed [...] vitamin D and complete vitamin D prescription. Resolved Problems Problem Noted Date Diagnosed Date Resolved Date Hypertensive urgency 04/18/2024 025 Assessment & Plan (04/18/2024 1:21 PM EDT): See above HTN. Encounters Date Type Department Care Team Description 11/02/2024 9:00 AM EDT Telemedicine [facility] [address] [place] [address] [phone] Carina Nolasco MD Essential hypertension (Primary Dx); Type 2 diabetes mellitus with hyperglycemia, without long-term current use of insulin (CMS/HCC); Ascending aorta dilatation (CMS/HCC); Screening for colon cancer 11/02/2024 Patient Outreach [facility] [address] [place] [address] [phone] Carina Nolasco MD Care Coordination (CHW outreach for SDOH housing search-referral completed ) 11/02/2024 Travel 11/01/2024 Telephone [facility] [address] [place] [address] [phone] Carina Nolasco MD Chart prep 10/31/2024 Telephone [facility] [address] [place] [address] [phone] Carina Nolasco MD Televisit 10/30/2024 Refill [facility] [address] [place] [address] [phone] Carina Nolasco MD Sciatica, unspecified laterality; Vitamin D deficiency 10/29/2024 Refill [facility] [address] [place] [address] [phone] Carina Nolasco MD Vitamin D deficiency 10/12/2024 Refill [facility] [address] [place] [address] [phone] Carina Nolasco MD Hyperlipidemia, unspecified hyperlipidemia type; Essential hypertension; Acquired hypothyroidism 10/06/2024 Refill [facility] [address] [facility] [place] [address] Carina Nolasco MD 10/02/2024 Refill [facility] [address] [facility] [place] [address] Carina Nolasco MD 09/04/2024 Telephone [facility] [address] [place] [address] Carina Nolasco MD 09/04/2024 Telephone [facility] [address] [place] [address] Carina Nolasco MD 09/04/2024 Refill [facility] [address] [place] [address] Carina Nolasco MD 09/01/2024 Telephone [facility] [address] [place] [address] Bettina Gauthier, cardiology fellow 08/31/2024 Refill [facility] [address] [place] [address] Carina Nolasco MD Essential hypertension (Primary Dx) 08/29/2024 Telephone [facility] [address] [place] [address] Carina Nolasco MD 08/23/2024 2:30 PM EDT Telemedicine [facility] [address] [facility] [place] [address] Topher Joyner, Chivo Essential hypertension (Primary Dx); Type 2 diabetes mellitus with hyperglycemia, without long-term current use of insulin ([facility]) 08/10/2024 Telephone [facility] [address] [facility] [place] [address] Carina Nolasco MD October recall 08/07/2024 Travel 08/04/2024 Refill [facility] [address] [place] [address] Carina Nolasco MD Type 2 diabetes mellitus with hyperglycemia, without long-term current use of insulin (CMS/[facility]) 08/04/2024 Refill [facility] [address] [facility] [place] [place] [address] Carina Nolasco MD from Last 3 Months Immunizations Immunization Administration Dates Next Due IPV 08/28/1997,10/22/1975 Influenza injectable quadrivalent preservative f ree 03/28/2015 Tdap 03/28/2015,10/22/1975 Social History Tobacco Use Types Packs/Day Years Used Date Smoking Tobacco: Never Smokeless Tobacco: Never Tobacco Cessation:Counseling Given: Not Answered Depression Answer Date Recorded Patient Health Questionnaire-9 [...] Sign Reading Time Taken Comments Blood Pressure 192/100 08/23/2024 2:45 PM EDT [facility] (televisit) Pulse 123 08/23/2024 2:45 PM EDT Temperature 37.1 C (98.7 F) 07/07/2024 10:57 AM EDT Respiratory Rate 18 07/07/2024 10:5 7 AM EDT Oxygen Saturation 96% 11/30/2023 10: 03 AM EDT Inhaled Oxygen Concentration - - Weight 70.3 kg (154 lb 14.4 oz) 07/07/2024 10:57 AM EDT Height 148.6 cm (4' 10.5 ) 07/07/2024 1 0:57 AM EDT Body Mass Index 31.82 07/07/2024 10:57 AM EDT Plan of Treatment Health Maintenance Due Date Last Done Comments CT Colonography 1960 Colonoscopy 1960 FIT DNA/Cologuard 1960 Sigmoidoscopy 1960 Eye Exam 1968 Hepatitis A Vaccines (1 of 2 - [...] - Risk 60-74 years 1-dose series) 2018 Lipid Panel 06/23/2023 06/22/2022 Diabetes: Urine Protein Screening 01/27/2024 01/26/2023 Colorectal Cancer Screening 02/03/2024 FIT 02/03/2024 02/02/2023 FOBT 02/03/2024 02/02/2023 Diabetes: Hemoglobin A1C 07/19/2024 03 025, 11/30/2023, 04/26/2023, Additional history exists COVID-19 Vaccine ( - season) 2024 Influenza Vaccine (#1) 2024 03/28/2015 DTaP/Tdap/Td Vaccines (3 - Td or Tdap) 03/28/2025 03/28/2015, 10/22/1975 Diabetes: Foot Exam 07/07/2025 07/07/2024, 07/07/2024, 07/07/2024, Additional history exists Mammogram 08/08/2025 08/08/2024, 05/06/2021 Alcohol/Substance Use Screening 11/02/2025 11/02/2024 Depression Screening 11/02/2025 11/02/2024, 11/03/19 SDOH Screening 11/02/2025 11/02/2024 Tobacco Screening 11/02/2025 11/02/2024 Cervical Cancer Screening 04/14/2026 HPV/Cotest 04/14/2026 04/14/2021 Pap Smear 04/14/2026 04/14/2021 Hepatitis C Screening Completed 04/28/2024 HIB Vaccines Aged Out No longer eligi ble based on patient's age to complete this topic HPV Vaccines Aged Out No longer eligi ble based on patient's age to complete this topic Meningococcal B Vaccine Aged Out No l onger eligible based on patient's age to complete [...] Procedure Name Priority Date/Time Associated Diagnosis Comments BI MAMMOGRAM SCREENING TOMOSYNTHESIS BILATERAL Routine 08/08/2024 10:00 AM EDT Screening mammogram for breast cancer HEPATITIS PANEL, GENERAL Routine 04/28/2024 9:10 AM EDT Abnormal LFTs Other problems related to lifestyle POCT GLYCATED HEMOGLOBIN, TOTAL Routine 04/18/2024 9:36 AM EDT Type 2 diabetes mellitus with hyperglycemia, without long-term current use of insulin ([facility]) HM FECAL IMMUNOCHEMICAL TEST Routine 02/02/2023 DIABETES: URINE PROTEIN SCREENING Routine 01/26/2023 LIPID PANEL, STANDARD Routine 06/22/2022 HM PAP/HPV Routine 04/14/2021 from Last 3 Months or Most Recently Relevant to Health Maintenance Results * BI Mammogram Screening Tomosynthesis Bilateral (08/08/2024 10:00 AM EDT) Anatomical Region Laterality Modality Breast Bilateral Mammography 08/08/2024 10:0 0 AM EDT Narrative 08/20/2024 8:46 PM EDT [facility] [address] [place] [address] Mammography Report Signed Patient: Kathryn Goins MR#: [id number] : 1960 Acct:[id number] Age/Sex: 63 / F ADM Date: 08/08/24 Loc: HO.MAMMO Attending Dr: Carina Nolasco MD Ordering Physician: Carina Nolasco MD Results: 1Ne gative Date of Service: 08/08/24 Follow Up: 1 Year From Orig ina Mammogram Procedure(s): MM tomosynthesis screening BI Accession Number(s): [id number] cc: Carina Nolasco MD EXAMINATION: MM SCREENING DIGITAL BREAST TOMOSYNTHESIS, BILATERAL CLINICAL INFORMATION: Screening. Asymptomatic. COMPARISON: Mammography: Comparison is made with available priors TECHNIQUE: Digital breast mammography with tomosynthesis is performed in both the craniocaudal and mediolateral oblique views along with computer-aided detection (CAD). FINDINGS: The breasts are heterogeneously dense, which may obscure small masses (ACR BI-RADS breast composition Category c). There are no significant masses, abnormal calcifications, or other abnormalities. MM/MM tomosynthesis screening BI IMPRESSION: No mammographic evidence of malignancy. ASSESSMENT: BI-RADS BI-RADS 1 - Negative RECOMMENDATION: Routine annual mammography screening. 1 year F/U This examination should not preclude the clinical evaluation of a suspicious palpable abnormality. This patient's information was entered into a reminder system with a target due date for their next mammogram. Electronically signed by: Suzette Cedeno DO 08/20/2024 08:43 PM EDT Dictated By: Suzette Cedeno DO Signed By: <Electronically signed by Suzette Cedeno DO in OV> 08/20/242042 DD/ 1000 TD/TT: 08/08/24 1020 Fire Tender: Procedure Note Donotuseinterpreter, Image - 08/20/2024 [facility] [address] [place], [place] [address] Mammography Report Signed Patient: Kathryn Goins#: [id number] : 1960cct:[id number] Age/Sex: 63 / FADM Date: 08/08/24 Loc: HO.MAMMO Attending Dr: Carina Nolasco MD Ordering Physician: Carina Nolasco MDResults: 1Ne gative Date of Service: 08/08/24Follow Up: 1 Year From Orig inal Mammogram Procedure(s): MM tomosynthesis screening BI Accession Number(s): [id number] cc: Carina Nolasco MD EXAMINATION: MM SCREENING DIGITAL BREAST TOMOSYNTHESIS, BILATERAL CLINICAL INFORMATION: Screening. Asymptomatic. COMPARISON: Mammography: Comparison is made with available priors TECHNIQUE: Digital breast mammography with tomosynthesis is performed in both the craniocaudal and mediolateral oblique views along with computer-aided detection (CAD). FINDINGS: The breasts are heterogeneously dense, which may obscure small masses (ACR BI-RADS breast composition Category c). There are no significant masses, abnormal calcifications, or other abnormalities. MM/MM tomosynthesis screening BI IMPRESSION: No mammographic evidence of malignancy. ASSESSMENT: BI-RADS BI-RADS 1 - Negative RECOMMENDATION: Routine annual mammography screening. 1 year F/U This examination should not preclude the clinical evaluation of a suspicious palpable abnormality. This patient's information was entered into a reminder system with a target due date for their next mammogram. Electronically signed by: Suzette Cedeno DO 08/20/2024 08:43 PM EDT Dictated By: Suzette Cedeno DO Signed By: <Electronically signed by Suzette Cedeno DO in OV> 08/20/242042 DD/ 1000 TD/TT: 08/08/24 1020 Fire Tender: Carina Nolasco MD IMG BI PROCEDURES Edited Result - Final * Hepatitis Panel, General (04/28/2024 9:10 AM EDT) Pathologist [facility] Hepatitis A IgM Nonreactive Nonreactive [facility] Comment:IgM antibodies to VANCE V not detected; does not exclude earlyacute or recovered HAV infection. ~Hepatitis B Surface Antibody NONREACTIVE Nonreactive [facility] Comment:Nonreactive: < 8.00 mIU/mL Hepatitis B Core Antibody Nonreactive Nonreactive [facility] Hepatitis C Antibody Nonreactive Nonreactive [facility] Comment:Antibodies to HCV no t detected; does not exclude early acuteHCV infection. Hepatitis B Surface Ag Negative Negative [facility] Blood 04/28/2024 9:10 AM EDT 04/28/2024 11:07 AM EDT Carina Nolasco MD LAB BLOOD ORDERABLES Fin al Result [facility] [address] [place] [phone] * (ABNORMAL) POCT HGB A1C (04/18/2024 9:36 AM EDT) Pathologist [facility] Hemoglobin A1C 10.0(A) 4.0 - 6.0 % QC Media Lot # [id number] Lot# Expiration Date Blood 04/18/2024 9:36 AM EDT Carina Nolasco MD POINT OF CARE TEST ENTER /EDIT ORDERABLES Final Result * Fecal Immunochemical Test (02/02/2023) Pathologist [facility] Fecal Immunochemical Test Nonreactive Borderline, Nonreactive, Weakly Reactive, Inconclusive Stool Rectal contents / Unknown Angelo Kahn MD HEALTH MAINTENANCE Final Result * Diabetes: Urine Protein Screening (01/26/2023) Microalbumin, Urine 25 Urine Historical Provider HEALTH MAINTENANCE Final Result * Lipid Panel, Standard (06/22/2022) LDL Cholesterol 122 mg/dL Blood Venous blood specimen / Unknown [facility] Provider MD LAB BLOOD ORDERABLES Zulma l Result * PAP/HPV (04/14/2021) Pap Smear 1. NILM 1. NILM HPV Not Detected Undetected, Indeterminat e, Quantitative , Not Detected [facility] Provider HEALTH MAINTENANCE Final Result from Last 3 Months or Most Recently Relevant to Health Maintenance Insurance [place] [address] [place] [id number] [facility] Care Teams Scale Model Maker Relationship Specialty Start Date End Date Carina Nolasco MD [address] [place] [address] PCP - General Internal Medicine 04/18/24 Topher Joyner, VitalyD [address], [place] [phone] Pharmacist Pharmacy 08/23/24
--- OUTSIDE RECORDS SUMMARY | 2024-11-03 09:46 | XMS_ITS | Encounter Summary ---
Author Organization [employer] Address [address] [place] [address] 7 [place] [address] Care Team Providers Care Tumbler Operator Name Role Phone Carina Nolasco MD Primary Care Provider + Topher Joyner PharmD Unavailable [phone] Reason for Visit * Reason Comments Med Refill Encounter Details Date Type Department Care Team (Late st Contact Info) Description 10/30/2024 Refill [facility] [address] [place] [address] [phone] Carina Nolasco MD [address] [place] [address] [phone] Sciatica, unspecified laterality; Vitamin D deficiency Social History Tobacco Use [...] as of this encounter Visit Diagnoses Diagnosis Sciatica, unspecified laterality Vitamin D deficiency documented in this encounter Care Teams Tumbler Operator Relationship Specialty Start Date End Date Carina Nolasco MD [address] [place] [address] [phone] PCP - General Internal Medicine 04/18/24 Topher Joyner, PharmD [address] [place] [phone] Pharmacist Pharmacy 08/23/24 documented as of this encounter
--- OUTSIDE RECORDS SUMMARY | 2024-11-03 09:46 | XMS_ITS | Clinical Summary ---
Author Organization [facility] Address [address] [place] [address] Phone Care Team Providers Care Hand Riveter Name Role Phone Carina Nolasco MD Primary Care Provider [phone] Encounters Date Type Department Care Team Description 11/02/2024 Office Communication [facility] [address] [place] [address] Patrizia Carlson MA 10/11/2024 Documentation Only [facility] [address] [place] [address] July Sandhu from Last 3 Months Social History Tobacco Use Types Packs/Day Years Used Date Smoking Tobacco: Never Assessed Comments Unknown Sex and Gender Information Value Date Recorded Sex Assigned at Not on file Legal Sex Female 3:33 PM EDT Gender Identity Not on file Sexual Orientation Not on file Plan of Treatment Upcoming Encounters Date Type Department Care Team (Late st Contact Info) Description 01/01/2025 3:00 PM EST Office Visit [facility] [address] [place] [phone] Luis Daly MD [address] [place] [address] [place] [phone] Health Maintenance Due Date Last Done Comments Breast Cancer Screening 1960 Pneumococcal Vaccine: 50+ Years (1 of 2 - PCV) 978 Colorectal Cancer Screening: Annual FOBT 12/24/2007 Colorectal Cancer Screening: Colonoscopy 12/24/2007 Colorectal Cancer Screening: Sigmoidoscopy 12/24/2007 Hepatitis B Vaccine (1 of 3 - Risk 3-dose series) 12/09 Influenza Vaccine (#1) 2024 03/28/2015 Diabetes: Hemoglobin A1C 10/11/2024 04/18/2024 Diabetes: Ophthalmology Exam 10/11/2024 Diabetes: Pedal Pulse Checked 10/11/2024 Diabetes: Sensory Foot Exam 10/11/2024 Diabetes: Visual Foot Exam 10/11/2024 Insurance Medicare Medicaid [place] Care Teams Hand Riveter Relationship Specialty Start Date End Date Carina Nolasco MD [address] [place] [address] [phone] PCP - General Internal Medicine 10/11/24
--- OUTSIDE RECORDS SUMMARY | 2024-11-03 09:46 | XMS_ITS | Encounter Summary ---
Author Organization [employer] Address [address] [place] [address] [place] [address] Care Team Providers Care Certified Technician Name Role Phone Carina Nolasco MD Primary Care Provider + Topher Joyner PharmD Unavailable [phone] Reason for Visit * Reason Comments Med Refill Encounter Details Date Type Department Care Team (Late st Contact Info) Description 09/17/[address] [address] Myah Bermudez PA-C [address] [place] [phone] Social History Tobacco Use Types Packs/Day Years [...] on filedocumented in this encounter Care Teams Certified Technician Relationship Specialty Start Date End Date Carina Nolasco MD [address] [place] [address] PCP - General Internal Medicine 04/18/24 Topher Joyner, PharmD [address] [place] [address] Pharmacist Pharmacy 08/23/24 documented as of this encounter
--- OUTSIDE RECORDS SUMMARY | 2024-11-03 09:46 | XMS_ITS | Encounter Summary ---
Author Organization [employer] Address [address] [facility] 7t [place] [address] Care Team Providers Care Aerographer Name Role Phone Carina Nolasco MD Primary Care Provider + Topher Joyner PharmD Unavailable [phone] Reason for Visit * Reason Onset Date Comments Televisit 10/31/2024 Encounter Details Date Type Department Care Team ([facility] st Contact Info) Description 10/31/2024 Telephone [facility] MEDICINE 230 [place], [place] [phone] Carina Nolasco MD 230 [place], [place] [phone] Televisit Social History Tobacco Use Types Packs/Day Years [...] Telephone Encounter - Ani Castillo MA - 10/31/2024 9:22 AM EDT TC to pt LVM to inform her that Dr Nolasco is working remote and the appt will be changed to a televisit. Advised pt not to come into the office that we will give her a call at her appt time documented in this encounter Plan of Treatment Not on file documented as of this encounter Visit Diagnoses Not on filedocumented in this encounter Care Teams Aerographer Relationship Specialty Start Date End Date Carina Nolasco MD [address] [place] [address] PCP - General Internal Medicine 04/18/24 Topher Joyner, Chivo [address] [place] [address] Pharmacist Pharmacy 08/23/24 documented as of this encounter
--- OUTSIDE RECORDS SUMMARY | 2024-11-03 09:46 | XMS_ITS | Encounter Summary ---
Author Organization [employer] Address [address] [place] [address] 7 [place] [address] Care Team Providers Care Commissary Production Supervisor Name Role Phone Carina Nolasco MD Primary Care Provider + Topher Joyner PharmD Unavailable [phone] Reason for Visit * Reason Comments Med Refill Encounter Details Date Type Department Care Team (Late st Contact Info) Description 01/24/2024 Refill [facility] MEDICINE 230 [place], [place] [phone] Tanvi Grant FNP [address] [place] [phone] Type 2 diabetes mellitus with hyperglycemia, without long-term current use of insulin (CMS/[facility]) Social History Tobacco Use Types Packs/Day Years [...] (CMS/HCC) documented in this encounter Care Teams Commissary Production Supervisor Relationship Specialty Start Date End Date Carina Nolasco MD 230 [place], [place] [phone] PCP - General Internal Medicine 04/18/24 Topher Joyner PharmD [address] [place] [phone] Pharmacist Pharmacy 08/23/24 documented as of this encounter
--- OUTSIDE RECORDS SUMMARY | 2024-11-03 09:46 | XMS_ITS | Encounter Summary ---
Author Organization [employer] Address [address] [place] [address] 7 [place] [address] Care Team Providers Care Store Merchandiser Name Role Phone Carina Nolasco MD Primary Care Provider + Topher Joyner PharmD Unavailable [phone] Reason for Visit * Reason Comments Med Refill Encounter Details Date Type Department Care Team (Late st Contact Info) Description 03/28/2024 Refill [facility] MED[facility]INE 230 [place], [place] [phone] Becky Porter MD [address] [place] [address] Vitamin D deficiency Social History Tobacco Use [...] deficiency documented in this encounter Care Teams Store Merchandiser Relationship Specialty Start Date End Date Carina Nolasco MD [address] [place] [address] [phone] PCP - General Internal Medicine 04/18/24 Topher Joyner, PharmD [address] [place] [address] [phone] Pharmacist Pharmacy 08/23/24 documented as of this encounter
--- OUTSIDE RECORDS SUMMARY | 2024-11-03 09:46 | XMS_ITS | Encounter Summary ---
Author Organization [employer] Address [address] [place] [address] 7 [place] [address] Care Team Providers Care Ship Unloader Name Role Phone Carina Nolasco MD Primary Care Provider + Topher Joyner PharmD Unavailable [phone] Reason for Visit * Reason Comments Med Refill Encounter Details Date Type Department Care Team (Late st Contact Info) Description 09/04/2023 Refill [facility] OB-Senior Ui Designer [address] [place] [address] Aline Dash MD Type 2 [...] (CMS/HCC) documented in this encounter Care Teams Ship Unloader Relationship Specialty Start Date End Date Carina Nolasco MD [address] [place] [address] [phone] PCP - General Internal Medicine 04/18/24 Topher Joyner, VitalyD [address] [place] [address] [place] [address] Pharmacist Pharmacy 08/23/24 documented as of this encounter
--- OUTSIDE RECORDS SUMMARY | 2024-11-03 09:46 | XMS_ITS | Encounter Summary ---
Author Organization [employer] Address [address] [place] [address] 7 [place] [address] Care Team Providers Care It Program Manager Name Role Phone Carina Nolasco MD Primary Care Provider + Topher Joyner PharmD Unavailable [phone] Reason for Visit * Reason Comments Med Refill Encounter Details Date Type Department Care Team (Late st Contact Info) Description 01/02/2024 Refill [facility] MEDICINE 230 [place], [place] [phone] Tanvi Grant FNP 26 [place] [phone] Type 2 diabetes mellitus with hyperglycemia, without long-term current use of insulin (CMS/[facility]) Social History Tobacco Use Types Packs/Day Years [...] (CMS/HCC) documented in this encounter Care Teams It Program Manager Relationship Specialty Start Date End Date Carina Nolasco MD 230 [place], [place] [phone] PCP - General Internal Medicine 04/18/24 Topher Joyner PharmD [address] [place] [address] Pharmacist Pharmacy 08/23/24 documented as of this encounter
--- OUTSIDE RECORDS SUMMARY | 2024-11-03 09:46 | XMS_ITS | Encounter Summary ---
Author Organization [employer] Address [address] [place] [address] 7 [place] [address] Care Team Providers Care Wash Oil Cooler Operator Name Role Phone Carina Nolasco MD Primary Care Provider + Topher Joyner PharmD Unavailable [phone] Reason for Visit * Reason Comments Med Refill Encounter Details Date Type Department Care Team ([facility] st Contact Info) Description 10/28/[address] [phone] Yessenia Dumont MD [address] [place] [address] Social History Tobacco Use Types Packs/Day Years [...] on filedocumented in this encounter Care Teams Wash Oil Cooler Operator Relationship Specialty Start Date End Date Carina Nolasco MD 230 [place] [address] PCP - General Internal Medicine 04/18/24 Topher Joyner, VitalyD [address] [place] [phone] Pharmacist Pharmacy 08/23/24 documented as of this encounter
--- OUTSIDE RECORDS SUMMARY | 2024-11-03 09:46 | XMS_ITS | Encounter Summary ---
Author Organization [email or web address] Address [address] 7t [place] [address] Care Team Providers Care Sales Office Manager Name Role Phone Carina Nolasco MD Primary Care Provider + Topher Joyner PharmD Unavailable [phone] Encounter Details Date Type Department Care Team (Latest Contact Info) Description 11/02/2024 Travel Social History Tobacco Use Types Packs/Day [...] Author Not at all 11/02/2024 9:06 AM EDAni Holt MA * Moving or speaking so slowly that other people could have noticed? Or the opposite - being so fidgety or restless that you have been moving around a lot more than usual. Answer Date of Assessment Author Not at all 11/02/2024 9:06 AM Ani Spangler MA * Thoughts that you would be [...] Davis MA documented as of this encounter Plan of Treatment Not on file documented as of this encounter Visit Diagnoses Not on filedocumented in this encounter Additional Health Concerns Assessment Noted Time PHQ-9 Depression Total Score: 1 11/03/19 9:06 AM EDT documented as of this encounter Care Teams Sales Office Manager Relationship Specialty Start Date End Date Carina Nolasco MD 230 [place] [address] PCP - General Internal Medicine 04/18/24 Topher Joyner, VitalyD 230 [place] [address] Pharmacist Pharmacy 08/23/24 documented as of this encounter
--- OUTSIDE RECORDS SUMMARY | 2024-11-03 09:46 | XMS_ITS | Encounter Summary ---
Author Organization [employer] Address [address] [place] [address] [place] [address] Care Team Providers Care Milk Deliverer Name Role Phone Carina Nolasco MD Primary Care Provider + Topher Joyner PharmD Unavailable [phone] Reason for Visit * Reason Comments Med Refill Encounter Details Date Type Department Care Team (Late st Contact Info) Description 08/29/2023 Refill [facility] OB-Sample Cutter [address] [place] [phone] Tnavi Grant FNP [address] [place] [phone] Social History Tobacco Use Types Packs/Day [...] on filedocumented in this encounter Care Teams Milk Deliverer Relationship Specialty Start Date End Date Carina Nolasco MD 230 [place] [address] PCP - General Internal Medicine 04/18/24 Topher Joyner, VitlayD [address] [place] [phone] Pharmacist Pharmacy 08/23/24 documented as of this encounter
--- OUTSIDE RECORDS SUMMARY | 2024-11-03 09:46 | XMS_ITS | Encounter Summary ---
Author Organization [employer] Address [address] [place] [address] 7 [place] [address] Care Team Providers Care Home Demonstrator Name Role Phone Carina Nolasco MD Primary Care Provider + Topher Joyner PharmD Unavailable [phone] Reason for Visit * Reason Comments Med Refill Encounter Details Date Type Department Care Team (Late st Contact Info) Description 07/19/2023 Refill [facility] OB-Handkerchief Sample Clerk 26 [place] [phone] Aline Dash MD Social History [...] on filedocumented in this encounter Care Teams Home Demonstrator Relationship Specialty Start Date End Date Carnia Nolasco MD [address] [place] [address] PCP - General Internal Medicine 04/18/24 Topher Joyner, PharmD 230 [place] [address] Pharmacist Pharmacy 08/23/24 documented as of this encounter
--- OUTSIDE RECORDS SUMMARY | 2024-11-03 09:46 | XMS_ITS | Encounter Summary ---
Author Organization [facility] Address [address] [place] [address] Phone Care Team Providers Care Pulp Drier Name Role Phone Carina Nolasco MD Primary Care Provider + [phone] Encounter Details Date Type Department Care Team (Late st Contact Info) Description 11/02/2024 Office Communication [facility], [address] [place] [address] Patrizia Carlson MA [address] [place] [address] Social History Tobacco Use Types Packs/Day Years Used Date Smoking Tobacco: Never Assessed Comments Unknown Sex and Gender Information Value Date Recorded Sex Assigned at Not on file Legal Sex Female 3:33 PM EDT Gender Identity Not on file Sexual Orientation Not on file documented as of this encounter Miscellaneous Notes * Telephone Encounter - Kimmy Baptiste MA - 11/02/2024 3:00 PM EDT Spoke to pt * Telephone Encounter - Patrizia Carlson MA - 11/02/2024 2:09 PM EDT When you have a moment would you please call Kathryn with new pt. Appt. Scheduled with Dr. Skelton and fellow on 01/01/25 at 3pm. Thank you documented in this encounter Plan of Treatment Upcoming Encounters Date Type Department Care Team (Late st Contact Info) Description 01/01/2025 3:00 PM EST Office Visit [facility] [place], [address] [phone] Luis Daly MD [address] [phone] documented as of this encounter Visit Diagnoses Not on filedocumented in this encounter Care Teams Pulp Drier Relationship Specialty Start Date End Date Carina Nolasco MD [address] [place] [address] [phone] PCP - General Internal Medicine 10/11/24 documented as of this encounter
[2024-11-03 11:59] LABS: Anion Gap 11 (12-20); Blood Urea Nitrogen 18 mg/dL (9-16); Calcium 9.5 mg/dL (8.4-10.2); Carbon Dioxide 26 mmol/L (22-29); Chloride 107 mmol/L (96-108); Cholesterol 233 mg/dL (<200); Estimated Glomerular Filt Rate 54; HDL Cholesterol 49 mg/dL (>40); Potassium 4.1 mmol/L (3.3-5.1); Sodium 140 mmol/L (135-145); Triglycerides 260 mg/dL (<150)
[2024-11-03 12:36] LABS: Vitamin B12 793 pg/mL (200-900)
== END 2024-11-03 09:06 | disposition home or self-care (01) ==
LOC: HO.HHCL 09:05
PROVIDERS: PCP Internal Medicine; Visit Provider Internal Medicine
DX: I10 Essential (primary) hypertension (principal); E11.65 Type 2 diabetes mellitus with hyperglycemia
CPT/HCPCS: 36415; 80048; 80061; 82607

== ENCOUNTER 2024-11-06 09:26 | Outpatient (REF) | payer MEDICARE, MEDICAID, SELFPAY ==
--- OUTSIDE RECORDS SUMMARY | 2024-11-02 09:00 | XMS_ITS | Encounter Summary ---
Author Organization [employer] Address [address] [facility] [address] [place] [address] Care Team Providers Care Litigation Partner Name Role Phone Carina Noalsco MD Primary Care Provider + Topher Joyenr PharmD Unavailable [phone] Reason for Referral * Consultation (Routine) - Authorized Specialty Diagnoses / Procedures Referred By Contac t Referred To Contact Ophthalmology Diagnoses Essential hypertension Type 2 diabetes mellitus with hyperglycemia, without long-term current use of insulin (HCC) Carina Nolasco MD [address] [place], [place] Phone: tel: fax: [facility] [place] [address] [place] [address] Phone: tel:[phone] fax: Referral ID Status Reason Start Date Expiration Date Visits Requested Visits Authorized [id number] Authorized Specialty Services Required 11/02/2024 11/02/2025 1 1 * Consultation (Routine) - Authorized Specialty Diagnoses / Procedures Referred By Contac t Referred To Contact Cardiology Diagnoses Ascending aorta dilatation ([facility]/HCC) Carina Nolasco MD [address] [place], [place] Phone: tel: fax: [facility] [address] [place] [address] Phone: tel: fax: Referral ID Status Reason Start Date Expiration Date Visits Requested Visits Authorized [id number] Authorized Specialty Services Required 11/02/2024 11/02/2025 1 1 Encounter Details Date Type Department Care Team (Late st Contact Info) Description 11/02/2024 9:00 AM EDT Telemedicine [facility] [address] [place] [address] Carina Nolasco MD [address] [place] [address] Essential hypertension (Primary Dx); Type 2 diabetes mellitus with hyperglycemia, without long-term current use of insulin (CMS/HCC); Ascending aorta dilatation (CMS/HCC); Screening for colon cancer Social History Tobacco Use Types Packs/Day Years Used Date Smoking Tobacco: Never Smokeless Tobacco: Never Depression Answer Date Recorded Patient Health Questionnaire-9 Score 1 11/02/2024 Patient Health Questionnaire-9 Score 1 11/02/2024 Last PHQ-9: Questionnaire Data Not on file 0 11/02/2024 Housing Stability Answer Date Recorded What is your housing situation today? I have juan m sing 11/02/[address] you li ve. Do you have problems with any of the following? None of the above 11/02/2024 Food Insecurity Answer Date Recorded Within the past 12 months, y ou worried that your food would run out before you got money to buy more: Never True 11/02/2024 Within the past 12 months,th e food you bought just didn't last and you didn't have enough money to get more: Never True Transportation Answer Date Recorded In the past 12 months, has l ack of transportation kept you from medical appts, meetings, work or from getting things needed for daily living? Yes, it has kept me from medical appointments or getting medications. 11/02/2024 Utilities Answer Date Recorded In the past 12 months, has t he electric, gas, oil or water company threatened to shut off services in your home? No 11/02/2024 Depression Answer Date Recorded Patient Health Questionnaire-2 Score 0 11/02/2024 Internet Access Answer Date Recorded Internet Access Q1 Yes 11/02/2024 Internet Access Q2 Not on file 11/02/2024 Comments Unknown Sex and Gender Information Value Date Recorded Sex Assigned at Female 08/09/2023 8:02 AM EDT Legal Sex Female 6:55 PM EDT Gender Identity Female 05/21/2023 6:55 PM EDT Sexual Orientation Straight 05/21/2023 6: 55 PM EDT documented as of this encounter Functional Status * Over the past 2 weeks, how often have you been bothered by any of the following problems? Question Answer Date of Assessment Author Patient Health Questionnaire-2 Score 0 10/10 9:06 AM EDT Ani Castillo [place] * Little interest or pleasure in doing things Answer Date of Assessment Author Not at all 11/02/2024 9:06 AM EDT Ani Castillo MA * Feeling down, depressed, or hopeless Answer Date of Assessment Author Not at all 11/02/2024 9:06 AM EDT Ani Castillo MA * Trouble falling or staying asleep, or sleeping too much Answer Date of Assessment Author Not at all 11/02/2024 9:06 AM EDT Ani Castillo MA * Feeling tired or having little energy Answer Date of Assessment Author Several days 11/02/2024 9:06 AM EDT Ani Castillo MA * Poor appetite or overeating Answer Date of Assessment Author Not at all 11/02/2024 9:06 AM EDT Ani Castillo MA * Feeling bad about yourself - or that you are a failure or have let yourself or your family down Answer Date of Assessment Author Not at all 11/02/2024 9:06 AM EDT Ani Castillo MA * Trouble concentrating on things, such as reading the newspaper or watching television Answer Date of Assessment Author Not at all 11/02/2024 9:06 AM EDT Ani Castillo MA * Moving or speaking so slowly that other people could have noticed? Or the opposite - being so fidgety or restless that you have been moving around a lot more than usual. Answer Date of Assessment Author Not at all 11/02/2024 9:06 AM EDT Ani Castillo MA * Thoughts that you would be better off or hurting yourself in some way Answer Date of Assessment Author Not at all 11/02/2024 9:06 AM EDT Ani Castillo MA * Patient Health Questionnaire-9 Score Answer Date of Assessment Author 1 11/02/2024 9:06 AM EDT Ani Castillo MA * How difficult have these problems made it for you to do your work, take care of things at home, or get along with other people? Answer Date of Assessment Author Not difficult at all 11/02/2024 9:06 AM EDT Ani Davis MA documented as of this encounter Progress Notes * Carina Nolasco MD - 11/02/2024 9:00 AM EDT SUBJECTIVE: Kathryn Pradhan is a 63 y.o. year old female who presents for follow up hypertension/DM. Denies recent illness, injury, or hospitalization. Echocardiogram on 08/16/2024 showed normal LVEF of 70% with grade 1 diastolic dysfunction and asymmetric septal hypertrophy mostly on the basal septum but no obstruction. Mild calcific aortic and mitral changes and mildly dilated ascending aorta at 3.7 cm. Patient denies PANDYA, exertional chest pain, pa lpitation or orthopnea. She has not had labs done for today's appointment. BP at home runs 105-130/80s. She denies exertional CP, PANDYA. FBS at home runs around low 200s/ RBS runs 200-250, no hypoglycemia. She denies leg edema, orthopnea or any signs of water retention with Actos. She's out of Olmesartan. Acute Concerns: Social History Social History Narrative Not on file Problem List[1] Family History[2] Review of Systems Constitutional: Negative for chills, [...] sores, pelvic pain and vaginal discharge. Musculoskeletal: Negative for back pain and neck pain. Skin: Negative for rash. Allergic/Immunologic: Negative for environmental allergies. Neurological: Negative for dizziness, seizures, weakness, light-headedness and headaches. Hematological: Negative for adenopathy. Psychiatric/Behavioral: Negative for agitation, behavioral problems, self-injury and suicidal ideas. OBJECTIVE: There were no vitals filed for this visit. Problem List Items Addressed This Visit Essential hypertension - Primary BP at home seems to be controlled, however she has usually showed up with significantly uncontrolled hypertension and echocardiogram shows changes consistent with long-term uncontrolled hypertension.I have discussed with patient the importance of hypertension control, and that I would like her to go for a 24-hour BP monitoring, which she declines again (she had already declined in the past). I explained that the test will be able to ge some high BP readings that are not able to be caught on random checks, therefore we will be able to adjust and treat hypertension better. I will continue with same medications including amlodipine 10 mg, metoprolol XL 100 mg, Benicar 20 mg, spironolactone 50 mg and follow-up with me in 1 month with labs. Counseled re low salt diet/increase moderate physical activity. Check home BP BIW and prn CP/VANCE/PANDYA Non smoking patient. Relevant Medications olmesartan (Benicar) 20 MG tablet Other Relevant Orders Referral to Ophthalmology Type 2 diabetes mellitus, without long-term current use of insulin (CMS/HCC) Uncontrolled, will increase Actos to 45 mg for now and follow-up with patient in 4 weeks with labs. Continue metformin and Jardiance max dose, she has declined injectables (GLP's and insulin) in the past, I will follow-up with her in 4 weeks with labs and address adjustment of medications. Counseled re more frequent low calorie/carb meals. Check fgstk 2x daily Encouraged physical activity as tolerated. Advised to schedule an appointment with ophthalmology/eye clinic Foot examination is normal, no diabetic neuropathy Dental examination up-to-date, recommended to have dental prophylaxis every 6 months Relevant Medications olmesartan (Benicar) 20 MG tablet pioglitazone (Actos) 45 MG tablet Other Relevant Orders Referral to Ophthalmology Ascending aorta dilatation (CMS/HCC) Patient seems to be asymptomatic at this time, we discussed with her the importance of tight hypertension control. She will be referred to cardiology for further follow-up Relevant Medications olmesartan (Benicar) 20 MG tablet Other Relevant Orders Referral to Cardiology Other Visit Diagnoses Screening for colon cancer Relevant Orders Cologuard?? colon cancer screening Follow Up: Medications Ordered Prior to Encounter[3] [1] Patient Active Problem List Diagnosis Essential hypertension Type 2 diabetes mellitus, without long-term current use of insulin (CMS/HCC) Pinguecula of both eyes Major depression, chronic Hypothyroidism Hyperlipidemia Health care maintenance Grade I diastolic dysfunction Fatty liver Abnormal mammogram Vitamin D deficiency Sciatica History of syphilis Bilateral kidney stones Kidney cysts Calculus of gallbladder with chronic cholecystitis without obstruction Witnessed episode of apnea Screening mammogram for breast cancer Class 1 obesity due to excess calories with serious comorbidity and body mass index (BMI) of 31.0 to 31.9 in adult Congenital dilatation of aorta Ascending aorta dilatation (CMS/HCC) [2] No family history on file. [3] Current Outpatient Medications on File Prior to Visit Medication Sig Dispense Refill Acetaminophen Extra Strength 500 MG tablet TAKE 1 TABLET BY MOUTH EVERY 6 HOURS IF NEEDED FOR MILD PAIN. 120 tablet 0 amLODIPine (Norvasc) 10 MG tablet Take 1 tablet (10 mg) by mouth Once per day. 90 tablet 3 atorvastatin (Lipitor) 40 MG tablet TAKE 1 TABLET BY MOUTH EVERY DAY 90 tablet 1 cholecalciferol (D3-1000) 25 MCG (1000 UT) capsule TAKE 1 CAPSULE BY MOUTH EVERY DAY 90 capsule 1 empagliflozin-metFORMIN ER (Synjardy XR) 12.5-1000 MG 24 hr tablet Take 1 tablet by mouth with breakfast and with evening meal. 60 tablet 11 FreeStyle lancets 1 each by Other route Once per day. 100 each 3 FREESTYLE LITE test strip TEST BLOOD SUGAR ONCE A DAY 100 strip 11 gabapentin (Neurontin) 300 MG capsule TAKE 1 CAPSULE BY MOUTH TWICE A DAY 180 capsule 1 levothyroxine (Synthroid, Levoxyl) 200 MCG tablet TAKE 1 TABLET BY MOUTH EVERY DAY 90 tablet 1 metoprolol succinate XL (Toprol-XL) 100 MG 24 hr tablet Take 1 tablet (100 mg) by mouth Once per day. 90 tablet 1 polyvinyl alcohol (Liquifilm Tears) 1.4 % ophthalmic solution INSTILL 2 DROPS INTO AFFECTED EYE(S) IF NEEDED IN THE MORNING AT NOON,AND AT BEDTIME FOR DRY EYE 15 mL 3 spironolactone (Aldactone) 50 MG tablet TAKE 1 TABLET BY MOUTH EVERY DAY 90 tablet 1 [DISCONTINUED] D3-1000 25 MCG (1000 UT) capsule TAKE 1 CAPSULE BY MOUTH EVERY DAY 90 capsule 1 [DISCONTINUED] gabapentin (Neurontin) 300 MG capsule Take 1 capsule (300 mg) by mouth 2 times daily. 180 capsule 1 [DISCONTINUED] olmesartan (Benicar) 20 MG tablet Take 1 tablet (20 mg) by mouth Once per day. 30 tablet 2 [DISCONTINUED] pioglitazone (Actos) 30 MG tablet TAKE 1 TABLET (30 MG) BY MOUTH ONCE PER DAY. 90 tablet 0 No current facility-administered medications on file prior to visit. documented in this encounter Miscellaneous Notes * Assessment & Plan Note - Carina Nolasco MD - 11/02/2024 9:54 AM EDT Associated Problem(s): Ascending aorta dilatation (CMS/HCC) Patient seems to be asymptomatic at this time, we discussed with her the importance of tight hypertension control. She will be referred to cardiology for further follow-up * Assessment & Plan Note - Carina Nolasco MD - 11/02/2024 9:54 AM EDT Associated Problem(s): Type 2 diabetes mellitus, without long-term current use of insulin (CMS/HCC) Uncontrolled, will increase Actos to 45 mg for now and follow-up with patient in 4 weeks with labs. Continue metformin and Jardiance max dose, she has declined injectables (GLP's and insulin) in the past, I will follow-up with her in 4 weeks with labs and address adjustment of medications. Counseled re more frequent low calorie/carb meals. Check fgstk 2x daily Encouraged physical activity as tolerated. Advised to schedule an appointment with ophthalmology/eye clinic Foot examination is normal, no diabetic neuropathy Dental examination up-to-date, recommended to have dental prophylaxis every 6 months * Assessment & Plan Note - Carina Nolasco MD - 11/02/2024 9:24 AM EDT Associated Problem(s): Essential hypertension BP at home seems to be controlled, however she has usually showed up with significantly uncontrolled hypertension and echocardiogram shows changes consistent with long-term uncontrolled hypertension.I have discussed with patient the importance of hypertension control, and that I would like her to go for a 24-hour BP monitoring, which she declines again (she had already declined in the past). I explained that the test will be able to ge some high BP readings that are not able to be caught on random checks, therefore we will be able to adjust and treat hypertension better. I will continue with same medications including amlodipine 10 mg, metoprolol XL 100 mg, Benicar 20 mg, spironolactone 50 mg and follow-up with me in 1 month with labs. Counseled re low salt diet/increase moderate physical activity. Check home BP BIW and prn CP/VANCE/PANDYA Non smoking patient. documented in this encounter Plan of Treatment Scheduled Orders Name Type Priority Associated Diagnoses Orde r Schedule Cologuard colon cancer screening Lab Routine Screening for colon cancer Ordered: 11/02/2024 Scheduled Referrals Name Type Priority Associated Diagnoses Order Schedule Referral to Cardiology Outpatient Referral Routine Ascending aorta dilatation (CMS/HCC) Expected: 11/02/2024 (Approximate), Expires: 11/02/2025 Referral to Ophthalmology Outpatient Referral Routine Essential hypertension Type 2 diabetes mellitus with hyperglycemia, without long-term current use of insulin (CMS/HCC) Expected: 11/02/2024 (Approximate), Expires: 11/02/2025 documented as of this encounter Visit Diagnoses Diagnosis Essential hypertension- Primary Unspecified essential hypertension Type 2 diabetes mellitus with hyperglycemia, without long-term current use of insulin (HCC) Ascending aorta dilatation (CMS/HCC) Thoracic aneurysm without mention of rupture Screening for colon cancer Special screening for malignant neoplasms, colon documented in this encounter Additional Health Concerns Assessment Noted Time PHQ-9 Depression Total Score: 1 11/03/19 9:06 AM EDT documented as of this encounter Care Teams Litigation Partner Relationship Specialty Start Date End Date Carina Nolasco MD [address] [place] [id number] PCP - General Internal Medicine 04/18/24 Topher Joyner, VitalyD [address] [place] [address] Pharmacist Pharmacy 08/23/24 documented as of this encounter
--- OUTSIDE RECORDS SUMMARY | 2024-11-06 10:14 | XMS_ITS | Encounter Summary ---
Author Organization [employer] Address [address] [address] 7t [place] [address] Care Team Providers Care Account Development Associate Name Role Phone Carina Nolasco MD Primary Care Provider + Topher Joyner PharmD Unavailable [phone] Encounter Details Date Type Department Care Team (Late st Contact Info) Description 11/30/2023 Abstract [facility] 230 [place], [place] [phone] Becky Porter MD 230 [place], [place] [phone] Hypertension, unspecified type Social History Tobacco Use [...] type documented in this encounter Care Teams Account Development Associate Relationship Specialty Start Date End Date Carina Nolasco MD 230 [place], [place] [phone] PCP - General Internal Medicine 04/18/24 Topher Joyner PharmD 230 [place] [address] Pharmacist Pharmacy 08/23/24 documented as of this encounter
--- OUTSIDE RECORDS SUMMARY | 2024-11-06 10:14 | XMS_ITS | Encounter Summary ---
Author Organization [employer] Address [address] [place] [address] 7 [place] [address] Care Team Providers Care Spotter Name Role Phone Carina Nolasco MD Primary Care Provider + Topher Joyner PharmD Unavailable [phone] Reason for Visit * Reason Comments Med Refill Encounter Details Date Type Department Care Team (Late st Contact Info) Description 07/19/2023 Refill [facility] OB-Solar Sales Ambassador [address] [place] [address] Aline Dash MD Social History [...] on filedocumented in this encounter Care Teams Spotter Relationship Specialty Start Date End Date Carina Nolasco MD [address] [place] [address] PCP - General Internal Medicine 04/18/24 Topher Joyner, PharmD 230 [place] [address] Pharmacist Pharmacy 08/23/24 documented as of this encounter
--- OUTSIDE RECORDS SUMMARY | 2024-11-06 10:14 | XMS_ITS | Encounter Summary ---
Author Organization [employer] Address [address] [place] [address] 7 [place] [address] Care Team Providers Care Superintendent Oil Field Drilling Name Role Phone Carina Nolasco MD Primary Care Provider + Topher Joyner PharmD Unavailable [phone] Reason for Visit * Reason Comments Med Refill Encounter Details Date Type Department Care Team (Late st Contact Info) Description 09/17/2023 Refill [facility] OB-Marine Equipment Research Engineer [address] [place] [address] Aline Dash MD Social History [...] on filedocumented in this encounter Care Teams Superintendent Oil Field Drilling Relationship Specialty Start Date End Date Carina Nolasco MD [address] [place] [address] PCP - General Internal Medicine 04/18/24 Topher Joyner, PharmD 230 [place] [address] Pharmacist Pharmacy 08/23/24 documented as of this encounter
--- OUTSIDE RECORDS SUMMARY | 2024-11-06 10:14 | XMS_ITS | Encounter Summary ---
Author Organization [employer] Address [address] [facility] 7t [place] [address] Care Team Providers Care Sales Research Analyst Name Role Phone Carina Nolasco MD Primary Care Provider + Topher Joyner PharmD Unavailable [phone] Encounter Details Date Type Department Care Team ([facility] st Contact Info) Description 11/03/2024 Orders Only [facility] MEDICINE 230 [place], [place] [phone] Carina Nolasco MD 230 [place], [place] [phone] Social History Tobacco Use Types Packs/Day Years Used Date Smoking Tobacco: Never Smokeless Tobacco: Never Depression Answer Date Recorded Patient Health Questionnaire-9 Score 1 11/02/2024 Patient Health Questionnaire-9 Score 1 11/02/2024 Last PHQ-9: Questionnaire Data Not on file 0 11/02/2024 Housing Stability Answer Date Recorded What is your housing situation today? I have juan m brian 11/02/[address] you li [...] on file documented as of this encounter Procedures Procedure Name Priority Date/Time Associated Diagnosis Comments VITAMIN B12 Routine 11/03/2024 9:15 AM EDT LIPID PANEL, STANDARD Routine 11/03/2024 9:15 AM EDT BASIC METABOLIC PANEL Routine 11/03/2024 9:15 AM EDT documented in this encounter Results * Vitamin B12 (11/03/2024 9:15 AM EDT) Vitamin B12 793 200 - 900 pg/mL [facility] Comment:NORMAL 200-900 PG/ML INDETERMINATE 160-199 PG/ML DEFICIENT < 160 PG/ML 11/03/2024 9:15 AM EDT 11/03/2024 11:21 AM EDT us Carina Nolasco MD LAB BLOOD ORDERABLES Fin al Result [facility] [address] [place] [address] [phone] * (ABNORMAL) Lipid Panel, Standard (11/03/2024 9:15 AM EDT) Triglycerides 260(H) <150 mg/dL [facility] Comment:Desirable Triglyceri de: less than 150 mg/dLBorderline High Triglyceride 150-199 mg/dLHigh Triglyceride: 200-499 mg/dLVery High Triglyceride: greater than or equal to 5OO mg/dL Cholesterol 233(H) <200 mg/dL [facility] Comment:Desirable Cholestero l: less than 200 mg/dLBorderline High Cholesterol: 200-239 mg/dLHigh Cholesterol: greater than 239 mg/dL LDL Cholesterol Calculated 132(H) <100 mg/dL [facility] Comment:Desirable LDL: less than 100 mg/dLNear Optimal/Above Optimal LDL: 110- 129 mg/dLBorderline High LDL: 130-159 mg/dLHigh LDL: 160-189 mg/dLVery High LDL: greater than or equal to 190 mg/dL HDL Cholesterol 49 >40 mg/dL [facility] Comment:Desirable HDL: great er than 40 mg/dL Note: This HDL assay may give artificially low results in patients with liver disease. 11/03/2024 9:15 AM EDT 11/03/2024 11:21 AM EDT us Carina Nolasco MD LAB BLOOD ORDERABLES Fin al Result [facility] [address] [place] [phone] * (ABNORMAL) Basic Metabolic Panel (11/03/2024 9:15 AM EDT) Sodium 140 135 - 145 mmol/L [facility] Potassium 4.1 3.3 - 5.1 mmol/L [facility] Chloride 107 96 - 108 mmol/L [facility] Carbon Dioxide 26 22 - 29 mmol/L [facility] Anion Gap 11(L) 12 - 20 [facility] Urea Nitrogen (BUN) 18(H) 9 - 16 mg/dL [facility] Creatinine, Serum 1.02 0.5 - 1.4 mg/dL [facility] Estimated Glomerular Filt Rate 54 [facility] Comment:Chronic Kidney Disea se: Estimated GFR < 60 mL/min/[id number] Kidney Disease: Estimated GFR < 15 mL/min/1.73m2 Glucose 231(H) 60 - 115 mg/dL [facility] Calcium 9.5 8.4 - 10.2 mg/dL [facility] 11/03/2024 9:15 AM EDT 11/03/2024 11:21 AM EDT Carina Nolasco MD LAB BLOOD ORDERABLES Fin al Result [facility] [address] [place] [phone] documented in this encounter Visit Diagnoses Not on filedocumented in this encounter Additional Health Concerns Assessment Noted Time PHQ-9 Depression Total Score: 1 11/03/19 9:06 AM EDT documented as of this encounter Care Teams Sales Research Analyst Relationship Specialty Start Date End Date Carina Nolasco MD [address] [place] [address] PCP - General Internal Medicine 04/18/24 Topher Joyner, VitalyD [address] [place] [address] Pharmacist Pharmacy 08/23/24 documented as of this encounter
--- OUTSIDE RECORDS SUMMARY | 2024-11-06 10:14 | XMS_ITS | Encounter Summary ---
Author Organization [employer] Address [address] [place] [address] [place] [address] Care Team Providers Care Technical Assistant Name Role Phone Carina Nolasco MD Primary Care Provider + Topher Joyner PharmD Unavailable [phone] Reason for Visit * Reason Comments Med Refill Encounter Details Date Type Department Care Team (Late st Contact Info) Description 08/18/2023 Refill [facility] OB-Meter And Regulator Shop Supervisor [address] [place] [phone] Tanvi Grant FNP [address] [place] [phone] Social History Tobacco Use Types Packs/Day [...] on filedocumented in this encounter Care Teams Technical Assistant Relationship Specialty Start Date End Date Carina Nolasco MD 230 [place] [address] PCP - General Internal Medicine 04/18/24 Topher Joyner, VitalyD [address] [place] [phone] Pharmacist Pharmacy 08/23/24 documented as of this encounter
--- OUTSIDE RECORDS SUMMARY | 2024-11-06 10:14 | XMS_ITS | Clinical Summary ---
Author Organization [facility] Address [address] [place] [address] Phone Care Team Providers Care Highway Design Engineer Name Role Phone Carina Nolasco MD Primary Care Provider [phone] Encounters Date Type Department Care Team Description 11/02/2024 Office Communication [facility] [address] [place] [address] Patrizia Carlson MA 10/11/2024 Documentation Only [facility] [address] [place] [address] July Sandhu from Last 3 [...] Visit [facility] [address] [place] [phone] Luis Daly MD [address] [place] [address] [place] [phone] Health Maintenance Due Date Last Done Comments [...] 10/11/2024 Insurance Medicare Medicaid [place] Care Teams Highway Design Engineer Relationship Specialty Start Date End Date Carina Nolasco MD [address] [place] [address] [phone] PCP - General Internal Medicine 10/11/24
--- OUTSIDE RECORDS SUMMARY | 2024-11-06 10:14 | XMS_ITS | Encounter Summary ---
Author Organization [employer] Address [address] [place] [address] 7 [place] [address] Care Team Providers Care Information Systems Security Manager Name Role Phone Carina Nolasco MD Primary Care Provider + Topher Joyner PharmD Unavailable [phone] Reason for Visit * Reason Comments Med Refill Encounter Details Date Type Department Care Team ([facility] st Contact Info) Description 01/24/[address] [facility] MEDICINE 230 [place], [place] [phone] Tanvi Grant FNP [address] [place] [address] [phone] Type 2 diabetes mellitus with hyperglycemia, without long-term current use of insulin ([facility]) Social History Tobacco Use Types Packs/Day [...] hyperglycemia, without long-term current use of insulin ([facility]) documented in this encounter Care Teams Information Systems Security Manager Relationship Specialty Start Date End Date Carina Nolasco MD 230 [place] [address] PCP - General Internal Medicine 04/18/24 Topher Joyner, PharmD [address] [place] [address] Pharmacist Pharmacy 08/23/24 documented as of this encounter
--- OUTSIDE RECORDS SUMMARY | 2024-11-06 10:14 | XMS_ITS | Encounter Summary ---
Author Organization [employer] Address [address] [place] [address] 7t [place] [address] Care Team Providers Care Hospice/Home Health Aide Name Role Phone Carina Nolasco MD Primary Care Provider + Topher Joyner PharmD Unavailable [phone] Reason for Visit * Reason Comments Med Refill Encounter Details Date Type Department Care Team (Late st Contact Info) Description 03/26/2024 Refill [facility] 230 [place], [place] [phone] Becky Porter MD [address] [place] [address] [phone] Essential hypertension Social History Tobacco Use Types [...] hypertension documented in this encounter Care Teams Hospice/Home Health Aide Relationship Specialty Start Date End Date Carina Nolasco MD [address] [place] [address] [phone] PCP - General Internal Medicine 04/18/24 Topher Joyner, PharmD [address] [place] [address] [phone] Pharmacist Pharmacy 08/23/24 documented as of this encounter
--- OUTSIDE RECORDS SUMMARY | 2024-11-06 10:14 | XMS_ITS | Encounter Summary ---
Author Organization [employer] Address [address] 7t [place] [address] Care Team Providers Care Sales Clerk Supervisor Name Role Phone Carina Nolasco MD Primary Care Provider + Topher Joyner PharmD Unavailable [phone] Reason for Visit * Reason Comments Care Coordination CHW outreach for SDO H housing search-referral completed Encounter Details Date Type Department Care Team (Latest Contact Info) Description 11/02/2024 Patient Outreach [facility] MEDICINE 230 [place], [place] [phone] Carina Nolasco MD 230 [place] [address] Care Coordination (CHW outreach for SDOH housing [...] Wednesdays, and Walk-In Urgent Care Located in [facility]. Patient provided with after-hours line for [facility], , which offer night time triage service and option to transfer to bottom ironer provider if needed. documented in this encounter Plan of Treatment Not on file documented as of this encounter Visit Diagnoses Not on filedocumented in this encounter Additional Health Concerns Assessment Noted Time PHQ-9 Depression Total Score: 1 11/03/19 9:06 AM EDT documented as of this encounter Care Teams Sales Clerk Supervisor Relationship Specialty Start Date End Date Carina Nolasco MD 230 [place] [address] PCP - General Internal Medicine 04/18/24 Topher Joyner, Chivo 230 [place] [address] Pharmacist Pharmacy 08/23/24 documented as of this encounter
--- OUTSIDE RECORDS SUMMARY | 2024-11-06 10:14 | XMS_ITS | Encounter Summary ---
Author Organization [employer] Address [address] 7t [place] [address] Care Team Providers Care Associate Entertainment Editor Name Role Phone aCrina Nolasco MD Primary Care Provider + Topher Joyner PharmD Unavailable [phone] Encounter Details Date Type Department Care Team [...] documented as of this encounter Care Teams Associate Entertainment Editor Relationship Specialty Start Date End Date Carina Nolasco MD 230 [place] [address] PCP - General Internal Medicine 04/18/24 Topher Joyner, VitalyD 230 [place] [address] Pharmacist Pharmacy 08/23/24 documented as of this encounter
--- OUTSIDE RECORDS SUMMARY | 2024-11-06 10:14 | XMS_ITS | Encounter Summary ---
Author Organization [employer] Address [address] [place] [address] 7t [place] [address] Care Team Providers Care Creative Director Name Role Phone Carina Nolasco MD Primary Care Provider + Topher Joyner PharmD Unavailable [phone] Reason for Visit * Reason Comments Med Refill Encounter Details Date Type Department Care Team (Late st Contact Info) Description 04/08/2024 Refill [facility]INE 230 [place], [place] [phone] Becky Porter MD 230 [place], [place] [phone] Hyperlipidemia, unspecified hyperlipidemia type; Essential hypertension Social [...] hypertension documented in this encounter Care Teams Creative Director Relationship Specialty Start Date End Date Carina Nolasco MD [address] [place] [address] [phone] PCP - General Internal Medicine 04/18/24 Topher Joyner, PharmD [address] [place] [phone] Pharmacist Pharmacy 08/23/24 documented as of this encounter
--- OUTSIDE RECORDS SUMMARY | 2024-11-06 10:14 | XMS_ITS | Encounter Summary ---
Author Organization [employer] Address [address] [place] [address] 7 [place] [address] Care Team Providers Care Pilot Safety Inspector Name Role Phone Carina Nolasco MD Primary Care Provider + Topher Joyner PharmD Unavailable [phone] Reason for Visit * Reason Comments Med Refill Encounter Details Date Type Department Care Team (Late st Contact Info) Description 09/04/2023 Refill [facility] OB-Rock Singer [address] [place] [address] Aline Dash MD Type 2 [...] Diagnosis Type 2 diabetes mellitus without complications (HCC) documented in this encounter Care Teams Pilot Safety Inspector Relationship Specialty Start Date End Date Carina Nolasco MD [address] [place] [address] [phone] PCP - General Internal Medicine 04/18/24 Topher Joyner, PharmD [address] [place] [address] [place] [address] Pharmacist Pharmacy 08/23/24 documented as of this encounter
--- OUTSIDE RECORDS SUMMARY | 2024-11-06 10:14 | XMS_ITS | Encounter Summary ---
Author Organization [facility] Address [address] [place] [address] Phone Care Team Providers Care Sand System Operator Name Role Phone Carina Nolasco MD Primary Care Provider + [phone] Encounter Details Date Type Department Care Team (Late st Contact Info) Description 11/02/2024 Office Communication [facility], [address] [place] [address] Patrizia Carlson MA [address] [place] [address] Social History Tobacco Use Types [...] Visit [facility] [place], [address] [place] [phone] Luis Daly MD [address] [place] [phone] documented as of this encounter Visit Diagnoses Not on filedocumented in this encounter Care Teams Sand System Operator Relationship Specialty Start Date End Date Carina Nolasco MD [address] [place] [address] [phone] PCP - General Internal Medicine 10/11/24 documented as of this encounter
--- OUTSIDE RECORDS SUMMARY | 2024-11-06 10:14 | XMS_ITS | Encounter Summary ---
Author Organization [employer] Address [address] [place] [address] 7 [place] [address] Care Team Providers Care Roll Up Operator Name Role Phone Carina Nolasco MD Primary Care Provider + Topher Joyner PharmD Unavailable [phone] Reason for Visit * Reason Comments Med Refill Encounter Details Date Type Department Care Team (Late st Contact Info) Description 12/27/2023 Refill [facility] OB-Bread Distributor [address] [place] [address] Aline Dash MD Social History [...] Med Refill Request reviewed by Med Refill Roll Up Operator, Devorah Peters RN. Last Visit: 04/2023 w PCP 06/2023 w DM Nurse Med Refill is acceptable at this time. Will forward to [facility] Pharmacy will not send labs for Provider Review *11/30/2023* will Task Scheduling to schedule Next visit RX Pended please review and update quantity and refill as needed Please reach out to Team staff as needed Ty documented in this encounter Plan of Treatment Not on file documented as of this encounter Visit Diagnoses Not on filedocumented in this encounter Care Teams Roll Up Operator Relationship Specialty Start Date End Date Carina Nolasco MD [address] [place] [address] PCP - General Internal Medicine 04/18/24 Topher Joyner, Chivo [address] [place] [address] Pharmacist Pharmacy 08/23/24 documented as of this encounter
--- OUTSIDE RECORDS SUMMARY | 2024-11-06 10:14 | XMS_ITS | Encounter Summary ---
Author Organization [employer] Address [address] [place] [address] 7 [place] [address] Care Team Providers Care Disposal Man Name Role Phone Carina Nolasco MD Primary Care Provider + Topher Joyner PharmD Unavailable [phone] Reason for Visit * Reason Comments Med Refill Encounter Details Date Type Department Care Team (Late st Contact Info) Description 03/28/2024 Refill [facility] MEDICINE 230 [place], [place] [phone] Becky Porter MD [address] [place] [address] Vitamin D deficiency Social History Tobacco Use [...] deficiency documented in this encounter Care Teams Disposal Man Relationship Specialty Start Date End Date Carina Nolasco MD [address] [place] [address] [phone] PCP - General Internal Medicine 04/18/24 Topher Joyner, PharmD [address] [place] [address] [phone] Pharmacist Pharmacy 08/23/24 documented as of this encounter
--- OUTSIDE RECORDS SUMMARY | 2024-11-06 10:14 | XMS_ITS | Encounter Summary ---
Author Organization [employer] Address [address] [place] [address] 7 [place] [address] Care Team Providers Care Tour Actor Name Role Phone Carina Nolasco MD Primary Care Provider + Topher Joyner PharmD Unavailable [phone] Reason for Visit * Reason Comments Med Refill Encounter Details Date Type Department Care Team ([facility] st Contact Info) Description 01/02/2024 Refill [facility] MEDICINE 230 [place], [place] [phone] Tanvi Grant FNP [address] [place] [phone] Type 2 diabetes mellitus with hyperglycemia, without long-term current use of insulin ([facility]) Social History Tobacco Use Types Packs/Day [...] hyperglycemia, without long-term current use of insulin ([facility]) documented in this encounter Care Teams Tour Actor Relationship Specialty Start Date End Date Carina Nolasco MD 230 [place] [address] PCP - General Internal Medicine 04/18/24 Topher Joyner, PharmD 230 [place] [address] Pharmacist Pharmacy 08/23/24 documented as of this encounter
--- OUTSIDE RECORDS SUMMARY | 2024-11-06 10:14 | XMS_ITS | Encounter Summary ---
Author Organization [employer] Address [address] [place] [address] [place] [address] Care Team Providers Care C Web Developer Name Role Phone Carina Nolasco MD Primary Care Provider + Topher Jonyer PharmD Unavailable [phone] Reason for Visit * Reason Comments Med Refill Encounter Details Date Type Department Care Team (Late st Contact Info) Description 09/17/[address] [address] Myah Bermudez PA-C [address] [place] [address] [phone] Social History Tobacco Use Types Packs/Day Years [...] on filedocumented in this encounter Care Teams C Web Developer Relationship Specialty Start Date End Date Carina Nolasco MD [address] [place] [address] PCP - General Internal Medicine 04/18/24 Topher Joyner, PharmD [address] [place] [address] Pharmacist Pharmacy 08/23/24 documented as of this encounter
--- OUTSIDE RECORDS SUMMARY | 2024-11-06 10:14 | XMS_ITS | Encounter Summary ---
Author Organization [employer] Address [address] [place] [address] [place] [address] Care Team Providers Care Salesperson Children'S Shoes Name Role Phone Carina Nolasco MD Primary Care Provider + Topher Joyner PharmD Unavailable [phone] Reason for Visit * Reason Comments Med Refill Encounter Details Date Type Department Care Team (Late st Contact Info) Description 08/29/2023 Refill [facility] OB-Coal Bagger [address] [place] [phone] Tanvi Grant FNP [address] [place] [phone] Social History Tobacco Use Types Packs/Day [...] on filedocumented in this encounter Care Teams Salesperson [employer] Sh[employer] Relationship Specialty Start Date End Date Carina Nolasco MD 230 [place] [address] PCP - General Internal Medicine 04/18/24 Topher Joyner, VitalyD [address] [place] [address] Pharmacist Pharmacy 08/23/24 documented as of this encounter
--- OUTSIDE RECORDS SUMMARY | 2024-11-06 10:14 | XMS_ITS | Encounter Summary ---
Author Organization [facility] Address [address] [place] [address] Phone Care Team Providers Care Materials Scheduler Name Role Phone Carina Nolasco MD Primary Care Provider [phone] Encounter Details Date Type Department Care Team (Late Contact Info) Description 10/11/2024 Documentation Only [facility] [address] [place] [address] July Sandhu [address] [place] [address] Social History Tobacco Use Types [...] Visit [facility] [address] [place] [address] Luis Daly MD [address] [place] [address] [place] [address] documented as of this encounter Visit Diagnoses Not on filedocumented in this encounter Care Teams Materials Scheduler Relationship Specialty Start Date End Date Carina Nolasco MD [address] [place] [address] [phone] PCP - General Internal Medicine 10/11/24 documented as of this encounter
--- OUTSIDE RECORDS SUMMARY | 2024-11-06 10:14 | XMS_ITS | Encounter Summary ---
Author Organization [employer] Address [address] [facility] 7t [place] [address] Care Team Providers Care Mash Preparatory Operator Name Role Phone Carina Nolasco MD Primary Care Provider + Topher Joyner PharmD Unavailable [phone] Reason for Visit * Reason Onset Date Comments Chart prep 11/01/2024 Encounter Details Date Type Department Care Team (Late st Contact Info) Description 11/01/2024 Telephone [facility]INE 230 [place], [place] [phone] Carina Nolasco MD 230 [place], [place] [phone] Chart prep Social History Tobacco Use Types [...] on filedocumented in this encounter Care Teams Mash Preparatory Operator Relationship Specialty Start Date End Date Carina Nolasco MD 230 [place] [address] PCP - General Internal Medicine 04/18/24 Topher Joyner, Chivo 230 [place] [address] Pharmacist Pharmacy 08/23/24 documented as of this encounter
--- OUTSIDE RECORDS SUMMARY | 2024-11-06 10:14 | XMS_ITS | Encounter Summary ---
Author Organization [employer] Address [address] [place] [address] 7 [place] [address] Care Team Providers Care Subscription Clerk Name Role Phone Carina Nolasco MD Primary Care Provider + Topher Joyner PharmD Unavailable [phone] Reason for Visit * Reason Comments Med Refill Encounter Details Date Type Department Care Team ([facility] st Contact Info) Description 10/28/[address] [phone] Yessenia Dumont MD [address] [place] [phone] Social History Tobacco Use Types Packs/Day Years [...] on filedocumented in this encounter Care Teams Subscription Clerk Relationship Specialty Start Date End Date Carina Nolasco MD 230 [place] [address] PCP - General Internal Medicine 04/18/24 Topher Joyner, VitalyD [address] [place] [phone] Pharmacist Pharmacy 08/23/24 documented as of this encounter
--- OUTSIDE RECORDS SUMMARY | 2024-11-06 10:14 | XMS_ITS | Encounter Summary ---
Author Organization [employer] Address [address] [place] [address] 7 [place] [address] Care Team Providers Care Safe And Vault Service Mechanic Name Role Phone Carina Nolasco MD Primary Care Provider + Topher Joyner PharmD Unavailable [phone] Reason for Visit * Reason Comments Med Refill Encounter Details Date Type Department Care Team (Late st Contact Info) Description 02/21/2024 Refill [facility] MEDICINE 230 [place], [place] [phone] Tanvi Grant FNP [address] [place] [address] [phone] Acquired hypothyroidism Social History Tobacco Use Types [...] hypothyroidism documented in this encounter Care Teams Safe And Vault Service Mechanic Relationship Specialty Start Date End Date Carina Nolasco MD [address] [place], [place] [phone] PCP - General Internal Medicine 04/18/24 Topher Joyner, PharmD [address] [place], [place] [phone] Pharmacist Pharmacy 08/23/24 documented as of this encounter
--- OUTSIDE RECORDS SUMMARY | 2024-11-06 10:14 | XMS_ITS | Encounter Summary ---
Author Organization [employer] Address [address] [place] [address] 7 [place] [address] Care Team Providers Care Metal Work Duct Installer Name Role Phone Carina Nolasco MD Primary Care Provider + Topher Joyner PharmD Unavailable [phone] Reason for Visit * Reason Comments Med Refill Encounter Details Date Type Department Care Team (Late st Contact Info) Description 01/29/2024 Refill [facility] MEDICINE 230 [place], [place] [phone] Tanvi Grant FNP [address] [place] [address] [phone] Essential hypertension Social History Tobacco Use Types [...] documented in this encounter Care Teams Metal Work Duct Installer Relationship Specialty Start Date End Date Carina Nolasco MD 230 [place], [place] PCP - General Internal Medicine 04/18/24 Topher Joyner, PharmD 230 [place], [place] [phone] Pharmacist Pharmacy 08/23/24 documented as of this encounter
--- OUTSIDE RECORDS SUMMARY | 2024-11-06 10:14 | XMS_ITS | Encounter Summary ---
Author Organization [employer] Address [address] [facility] 7t [place] [address] Care Team Providers Care Intake Manager Name Role Phone Carina Nolasco MD Primary Care Provider + Topher Joyner PharmD Unavailable [phone] Reason for Visit * Reason Comments Med Refill Encounter Details Date Type Department Care Team (Late st Contact Info) Description 11/05/2024 Refill [facility] MEDICINE 230 [place], [place] [phone] Barbara Barrios, 230 [place], [place] [phone] Social History Tobacco Use Types Packs/Day Years [...] Time PHQ-9 Depression Total Score: 1 11/03/19 25 9:06 AM EDT documented as of this encounter Care Teams Intake Manager Relationship Specialty Start Date End Date Carina Nolasco MD 230 [place] [address] PCP - General Internal Medicine 04/18/24 Topher Joyner, Chivo 230 [place] [address] Pharmacist Pharmacy 08/23/24 documented as of this encounter
--- OUTSIDE RECORDS SUMMARY | 2024-11-06 10:14 | XMS_ITS | Clinical Summary ---
Author Organization [email or web address] Address [address] [facility] [address] [place] [address] Care Team Providers Care Rehabilitation Team Lead Name Role Phone Carina Nolasco MD Primary Care Provider + Topher oJyner PharmD Unavailable [phone] Allergies No known active allergies Medications FREESTYLE LITE test stripIndications: Type 2 diabetes mellitus with hyperglycemia, without long-term current use of insulin ([facility]) TEST BLOOD SUGAR ONCE A DAY 100 strip 08/05/19 25 Active amLODIPine (Norvasc) 10 MG [...] hyperglycemia, without long-term current use of insulin ([facility]) 1 each by Other route Once per day. 100 each 3 08/08/19 25 Active empagliflozin-met FORMIN ER (Synjardy XR) 12.5-1000 MG 24 hr tabletIndications :Type 2 diabetes mellitus with hyperglycemia, without long-term current use of insulin ([facility]) Take 1 tablet by mouth with breakfast [...] EVERY DAY 90 tablet 10/13/19 25 Active gabapentin (Neurontin) 300 MG [...] by mouth 2 times daily. 180 capsule 04/19/192024 Discontinued levothyroxine (Synthroid, Levoxyl) 200 MCG tabletIndications :Acquired hypothyroidism Take 1 tablet (200 mcg) by mouth Once per day. 90 tablet 04/19/19 25 2024 Discontinued atorvastatin (Lipitor) 40 [...] BY MOUTH EVERY DAY 90 capsule 1 03/25/2024 Discontinued(R eorder (will not trigger notification to Pharmacy)) olmesartan (Benicar) 20 MG tabletIndications :Essential hypertension Take 1 tablet (20 mg) by mouth Once per day. 30 tablet 2 08/08/19 25 2024 Discontinued(R eorder (will not trigger notification to Pharmacy)) pioglitazone (Actos) 30 MG tablet TAKE 1 [...] History of syphilis 05/05/2024 Overview (05/05/2024): [facility] reported pos Hx syphilis on 2007, with a titer 1:32. Pt received tx with 3 doses of PCN. Assessment & Plan (07/07/2024 3:19 PM EDT): We called [facility] who reported pos Hx syphilis on 2007, [...] remember with whom. 2021 -> referred to [facility], never got appt 06/30 re-referred for [...] remember with whom. 2021 -> referred to [facility], never got appt 06/30 re-referred for [...] 12/06/18, 03/06/2019, 04/29 COVID vax - decliend 11/28, 04/29 no dental care (has dentures upper [...] 12/06/18, 03/06/2019, 04/29 COVID vax - decliend 11/28, 04/29 no dental care (has dentures upper [...] Encounters Date Type Department Care Team Description 11/05/2024 Refill [facility] [address] [place] [phone] Barbara Barrios DO 11/03/2024 Orders Only [facility] [address] [place] [phone] Carina Nolasco MD 11/02/2024 9:00 AM EDT Telemedicine [facility] [address] [place] [phone] Carina Nolasco MD Essential hypertension (Primary Dx); Type 2 diabetes mellitus with hyperglycemia, without long-term current use of insulin (CMS/HCC); Ascending aorta dilatation (CMS/HCC); Screening for colon cancer 11/02/2024 Patient Outreach [facility] [address] [place] [phone] Carina Nolasco MD Care Coordination (CHW outreach for SDOH housing search-referral completed ) 11/02/2024 Travel 11/01/2024 Telephone [facility] [address] [place] [address] [phone] Carina Nolasco MD Chart prep 10/31/2024 Telephone [facility] [address] [place] [address] [phone] Carina Nolasco MD Televisit 10/30/2024 Refill [facility] [address] [place] [phone] Carina Nolasco MD Sciatica, unspecified laterality; Vitamin D deficiency 10/29/2024 Refill [facility] [address] [place] [phone] Carina Nolasco MD Vitamin D deficiency 10/12/2024 Refill [facility] [address] [place] [phone] Carina Nolasco MD Hyperlipidemia, unspecified hyperlipidemia type; Essential hypertension; Acquired hypothyroidism 10/06/2024 Refill [facility] [address] [place] [address] Carina Nolasco MD 10/02/2024 Refill [facility] [address] [place] [address] Carina Nolasco MD 09/04/2024 Telephone [facility] [address] [place] [address] Carina Nolasco MD 09/04/2024 Telephone [facility] [address] [place] [address] Carina Nolasco MD 09/04/2024 Refill [facility] [address] [place] [address] Carina Nolasco MD 09/01/2024 Telephone [facility] [address] [place] [address] Bettina Gauthier, brand advocate 08/31/2024 Refill [facility] [address] [place] [address] Carina Nolasco MD Essential hypertension (Primary Dx) 08/29/2024 Telephone [facility] [address] [place] [address] Carina Nolasco MD 08/23/2024 2:30 PM EDT Telemedicine [facility] [address] [place] [address] Topher Joyner, PharmD Essential hypertension (Primary Dx); Type 2 diabetes mellitus with hyperglycemia, without long-term current use of insulin ([facility]) 08/10/2024 Telephone [facility] [address] [place] [address] Carina Nolasco MD October08/07/2024 Travel from Last 3 Months Immunizations Immunization Administration [...] - Risk 60-74 years 1-dose series) 2018 Diabetes: Urine Protein Screening 01/27/2024 01/26/2023 Colorectal Cancer Screening 02/03/2024 FIT 02/03/2024 02/02/2023 FOBT 02/03/2024 02/02/2023 Diabetes: Hemoglobin A1C 07/19/2024 025, 11/30/2023, 04/26/2023, Additional history exists COVID-19 Vaccine ( season) 2024 Influenza Vaccine (#1) 2024 03/28/2015 DTaP/Tdap/Td Vaccines (3 - Td or Tdap) 03/28/2025 03/28/2015, 10/22/1975 Diabetes: Foot Exam 07/07/2025 07/07/2024, 07/07/2024, 07/07/2024, Additional history exists Mammogram 08/08/2025 08/08/2024, 05/06/2021 Alcohol/Substance Use Screening 11/02/2025 11/02/2024 Depression Screening 11/02/2025 11/02/2024, 11/03/19 SDOH Screening 11/02/2025 11/02/2024 Tobacco Screening 11/02/2025 11/02/2024 Lipid Panel 11/03/2025 11/03/2024, 06/22/2022 Cervical Cancer Screening 04/14/2026 HPV/Cotest 04/14/2026 04/14/2021 [...] METABOLIC PANEL Routine 11/03/2024 9:15 AM EDT BI MAMMOGRAM SCREENING TOMOSYNTHESIS BILATERAL Routine 08/08/2024 10:00 AM EDT Screening mammogram for breast cancer HEPATITIS PANEL, GENERAL Routine 04/28/2024 9:10 AM EDT Abnormal LFTs Other problems related to lifestyle POCT GLYCATED HEMOGLOBIN, TOTAL Routine 04/18/2024 9:36 AM EDT Type 2 diabetes mellitus with hyperglycemia, without long-term current use of insulin ([facility]) HM FECAL IMMUNOCHEMICAL TEST Routine 02/02/2023 HM DIABETES: URINE PROTEIN SCREENING Routine 01/26/2023 HM PAP/HPV Routine 04/14/2021 from Last 3 Months or Most Recently Relevant to Health Maintenance Results * Vitamin B12 (11/03/2024 9:15 AM EDT) Vitamin B12 793 200 - 900 pg/mL [facility] Comment:NORMAL 200-900 PG/ML INDETERMINATE 160-199 PG/ML DEFICIENT < 160 PG/ML 11/03/2024 9:15 AM EDT 11/03/2024 11:21 AM EDT us Carina Nolasco MD LAB BLOOD ORDERABLES Fin al Result [facility] [address] [place] [phone] * (ABNORMAL) Lipid Panel, Standard (11/03/2024 9:15 AM EDT) Triglycerides 260(H) <150 mg/dL [facility] Comment:Desirable Triglyceri de: less than 150 mg/dLBorderline High Triglyceride 150-199 mg/dLHigh Triglyceride: 200-499 mg/dLVery High Triglyceride: greater than or equal to 5OO mg/dL Cholesterol 233(H) <200 mg/dL [facility] Comment:Desirable Cholestero l: less than 200 mg/dLBorderline High Cholesterol: 200-239 mg/dLHigh Cholesterol: greater than 239 mg/dL LDL Cholesterol Calculated 132(H) <100 mg/dL [facility] Comment:Desirable LDL: less than 100 mg/dLNear Optimal/Above Optimal LDL: 110- 129 mg/dLBorderline High LDL: 130-159 mg/dLHigh LDL: 160-189 mg/dLVery High LDL: greater than or equal to 190 mg/dL HDL Cholesterol 49 >40 mg/dL [facility] Comment:Desirable HDL: great er than 40 mg/dL Note: This HDL assay may give artificially low results in patients with liver disease. 11/03/2024 9:15 AM EDT 11/03/2024 11:21 AM EDT us Carina Nolasco MD LAB BLOOD ORDERABLES Fin al Result Performing Organization Address [facility] Co de Phone Number [facility] [address] [place] [phone] * (ABNORMAL) Basic Metabolic Panel (11/03/2024 9:15 AM EDT) Sodium 140 135 - 145 mmol/L [facility] Potassium 4.1 3.3 - 5.1 mmol/L [facility] Chloride 107 96 - 108 mmol/L [facility] Carbon Dioxide 26 22 - 29 mmol/L [facility] Anion Gap 11(L) 12 - 20 [facility] Urea Nitrogen (BUN) 18(H) 9 - 16 mg/dL [facility] Creatinine, Serum 1.02 0.5 - 1.4 mg/dL [facility] Estimated Glomerular Filt Rate 54 [facility] Comment:Chronic Kidney Disea se: Estimated GFR < 60 mL/min/1.05z6Rswwme Kidney Disease: Estimated GFR < 15 mL/min/1.73m2 Glucose 231(H) 60 - 115 mg/dL [facility] Calcium 9.5 8.4 - 10.2 mg/dL [facility] 11/03/2024 9:15 AM EDT 11/03/2024 11:21 AM EDT us Carina Nolasco MD LAB BLOOD ORDERABLES Fin al Result Performing Organization Address [facility] Co de Phone Number [facility] [address] [place] [phone] * BI Mammogram Screening Tomosynthesis Bilateral (08/08/2024 10:00 AM EDT) Anatomical Region Laterality Modality Breast Bilateral Mammography 08/08/2024 10:0 0 AM EDT Narrative 08/20/2024 8:46 PM EDT [facility] [address] [place] [address] Mammography Report Signed Patient: Kathryn Goins MR#: [id number] : 1960 Acct:[id number] Age/Sex: 63 / F ADM Date: 08/08/24 Loc: HO.MAMMO Attending Dr: Carina Nolasco MD Ordering Physician: Carina Nolasco MD Results: 1Ne gative Date of Service: 08/08/24 Follow Up: 1 Year From Orig inal Mammogram Procedure(s): MM tomosynthesis screening BI Accession Number(s): [id number] cc: Carina Nolasco MD EXAMINATION: MM SCREENING [...] signed by Suzette Cedeno DO in OV> 08/20/24 2043 DD/ 1000 TD/TT: 08/08/24 1020 Zigzagger: Procedure Note Donotuseinterpreter, Image - 08/20/2024 [facility] [address] [place], [place] [address] Mammography Report Signed Patient: Kathryn GoinsMR#: [id number] : 9Acct:[id number] Age/Sex: 63 / FADM Date: 08/08/24 Loc: HO.MAMMO Attending Dr: Carina Nolasco MD Ordering Physician: Carina Nolasco MDResults: 1Ne gative Date of Service: 08/08/24Follow Up: 1 Year From [facility]a Mammogram Procedure(s): MM tomosynthesis screening BI Accession Number(s): [id number] cc: Carina Nolasco MD EXAMINATION: MM SCREENING [...] signed by Suzette Cedeno DO in OV> 08/20/24 2043 DD/ 1000 TD/TT: 08/08/24 1020 Zigzagger: Carina Nolasco MD [facility] BI PROCEDURES Edited Result - Final * Hepatitis Panel, General (04/28/2024 9:10 AM EDT) Hepatitis A IgM Nonreactive Nonreactive [facility] Comment:IgM antibodies to VANCE V not detected; does not exclude earlyacute or recovered HAV infection. ~Hepatitis B Surface Antibody NONREACTIVE Nonreactive [facility] Comment:Nonreactive: < 8.00 mIU/mL Hepatitis B Core Antibody Nonreactive Nonreactive [facility] Hepatitis C Antibody Nonreactive Nonreactive [facility] Comment:Antibodies to HCV no t detected; does not exclude early acuteHCV infection. Hepatitis B Surface Ag Negative Negative [facility] Blood 04/28/2024 9:10 AM EDT 04/28/2024 11:07 AM EDT Carina Nolasco MD LAB BLOOD ORDERABLES Fin al Result [facility] [address] [place] [phone] * (ABNORMAL) POCT HGB A1C (04/18/2024 9:36 AM EDT) Hemoglobin A1C 10.0(A) 4.0 - 6.0 % QC Media Lot # [id number] Lot# Expiration Date Blood 04/18/2024 9:36 AM EDT Carina Nolasco MD POINT OF CARE TEST ENTER /EDIT ORDERABLES Final Result * Fecal Immunochemical Test (02/02/2023) Fecal Immunochemical Test Nonreactive Borderline, Nonreactive, Weakly Reactive, Inconclusive Stool Rectal contents / Unknown Historical Provider HEALTH MAINTENANCE Final Result * Diabetes: Urine Protein Screening (01/26/2023) Microalbumin, Urine 25 Urine Historical Provider HEALTH MAINTENANCE Final Result * PAP/HPV (04/14/2021) Pap Smear 1. NILM 1. NILM HPV Not Detected Undetected, Indeterminat e, Quantitative , Not Detected Historical Provider HEALTH MAINTENANCE Final Result from Last 3 Months or Most Recently Relevant to Health Maintenance Insurance [place] [phone] [facility] Care Teams Rehabilitation Team Lead Relationship Specialty Start Date End Date Carina Nolasco MD [address] [place] [phone] PCP - General Internal Medicine 04/18/24 Topher Joyner, Ch[address] [place] [address] Pharmacist Pharmacy 08/23/24
[2024-11-06 12:22] LABS: Microalbum/Creatinine Ratio Ur 31.6 ug/mg cr (<30)
== END 2024-11-06 09:27 | disposition home or self-care (01) ==
LOC: HO.HHCL 09:26
PROVIDERS: PCP Internal Medicine; Visit Provider Internal Medicine
DX: E11.65 Type 2 diabetes mellitus with hyperglycemia (principal)
CPT/HCPCS: 82043; 82570